=== PATIENT | female | born 1950 | race Caucasian/White ===

== ENCOUNTER → 2018-05-12 | Outpatient (CLI) | payer MEDICARE, BC, OTHER ==
[2018-05-12 11:25] LABS: HEMATOCRIT 43.7 % (36.0-47.0); HEMOGLOBIN 14.6 g/dl (12.0-15.5); MEAN CORPUSCULAR HEMOGLOBIN 30.3 pg (27.0-33.0); MEAN CORPUSCULAR HGB CONC 33.4 g/dl (32.0-36.5); MEAN CORPUSCULAR VOLUME 90.7 fl (80.0-96.0); PLATELET COUNT, AUTOMATED 206 10^3/uL (150-450); RED BLOOD COUNT 4.82 10^6/uL (4.00-5.40); RED CELL DISTRIBUTION WIDTH 11.2 % (11.5-14.5)
[2018-05-12 11:40] LABS: ALBUMIN 3.8 GM/DL (3.2-5.2); ALBUMIN/GLOBULIN RATIO 1.36 (1.00-1.93); ALKALINE PHOSPHATASE 98 U/L (45-117); ALT/SGPT 23 U/L (12-78); ANION GAP 6 MEQ/L (8-16); AST/SGOT 13 U/L (7-37); BILIRUBIN,TOTAL 0.5 MG/DL (0.2-1.0); BLOOD UREA NITROGEN 15 MG/DL (7-18); CALCIUM LEVEL 9.1 MG/DL (8.8-10.2); CARBON DIOXIDE LEVEL 30 MEQ/L (21-32); CHLORIDE LEVEL 109 MEQ/L (98-107); CHOLESTEROL LEVEL 218 MG/DL (<200); CHOLESTEROL RISK RATIO 3.633 (<5); CPK CREATINE PHOSPHOKINASE 35 U/L (26-192); CREATININE FOR GFR 0.82 MG/DL (0.55-1.30); GLOMERULAR FILTRATION RATE > 60.0 (>45); GLUCOSE, FASTING 90 MG/DL (70-100); HDL CHOLESTEROL 60 MG/DL (>40); LDL CHOLESTEROL 137 MG/DL (<100); NON-HDL-C 158 MG/DL; POTASSIUM SERUM 4.8 MEQ/L (3.5-5.1); SODIUM LEVEL 145 MEQ/L (136-145); THYROXINE (T4) 9.1 UG/DL (4.5-12.0); TOTAL PROTEIN 6.6 GM/DL (6.4-8.2); TRIGLYCERIDES LEVEL 105 MG/DL (<150); TROPONIN I < 0.02 NG/ML (< 0.10)
[2018-05-13 09:34] LABS: THYROID PEROXIDASE ANTIBODY 34.7 U/ML (<60.0)
== END ==
LOC: M WUC 08:31
DX: R00.2 Palpitations (principal)
CPT/HCPCS: 82550

== ENCOUNTER 2018-06-06 11:59 | Emergency (ER) | payer MEDICARE, BC, OTHER ==
[2018-06-06] MEDS: ACETAMINOPHEN TAB 650MG DOSE (2X325MG) PO (12:34)
[2018-06-06] MEDS: NS 1,000 ML IV ×2 (12:34→13:30)
[2018-06-06 12:35] LABS: BASO % 0.2 % (0.0-1.0); EOS % 0.1 % (0.0-3.0); HEMATOCRIT 45.6 % (36.0-47.0); HEMOGLOBIN 15.3 g/dl (12.0-15.5); IMMATURE GRANULOCYTE % 0.5 % (0-3.0); LYMPH # 1.5 10^3/uL (1.5-4.5); LYMPH % 11.5 % (24.0-44.0); MEAN CORPUSCULAR HEMOGLOBIN 29.8 pg (27.0-33.0); MEAN CORPUSCULAR HGB CONC 33.6 g/dl (32.0-36.5); MEAN CORPUSCULAR VOLUME 88.9 fl (80.0-96.0); MONO # 1.3 10^3/uL (0.0-0.8); MONO % 10.1 % (0.0-5.0); NEUTROPHILS # 10.1 10^3/uL (1.8-7.7); NEUTROPHILS % 77.6 % (36.0-66.0); PLATELET COUNT, AUTOMATED 261 10^3/uL (150-450); RED BLOOD COUNT 5.13 10^6/uL (4.00-5.40); RED CELL DISTRIBUTION WIDTH 11.5 % (11.5-14.5)
[2018-06-06 12:45] LABS: INR 0.98; PROTHROMBIN TIME 13.1 SECONDS (12.1-14.4)
[2018-06-06 12:46] LABS: PARTIAL THROMBOPLASTIN TIME 29.1 SECONDS (25.4-37.6)
[2018-06-06 13:06] LABS: ALBUMIN/GLOBULIN RATIO 1.03 (1.00-1.93); ALKALINE PHOSPHATASE 110 U/L (45-117); ALT/SGPT 22 U/L (12-78); AMYLASE 48 U/L (25-115); ANION GAP 8 MEQ/L (8-16); AST/SGOT 12 U/L (7-37); BILIRUBIN,DIRECT 0.1 MG/DL (0.0-0.2); BILIRUBIN,TOTAL 0.5 MG/DL (0.2-1.0); BLOOD UREA NITROGEN 16 MG/DL (7-18); CALCIUM LEVEL 9.6 MG/DL (8.8-10.2); CARBON DIOXIDE LEVEL 27 MEQ/L (21-32); CHLORIDE LEVEL 103 MEQ/L (98-107); CREATININE FOR GFR 0.91 MG/DL (0.55-1.30); GLOMERULAR FILTRATION RATE > 60.0 (>45); GLUCOSE, FASTING 106 MG/DL (70-100); LIPASE 93 U/L (73-393); POTASSIUM SERUM 3.9 MEQ/L (3.5-5.1); SODIUM LEVEL 138 MEQ/L (136-145); TOTAL PROTEIN 7.9 GM/DL (6.4-8.2)
[2018-06-06 13:13] LABS: LACTIC ACID SEPSIS PROTOCOL 2.6 MMOL/L (0.4-2.0)
[2018-06-06] MEDS ORDERED: ISOVUE-370 76% 100ML VIAL (Q9967) As Ordered (13:14)
[2018-06-06 13:38] LABS: KETONE, URINE AUTO RFX NEGATIVE (NEGATIVE); LEUKOCYTE ESTERASE UR AUTO RFX NEGATIVE (NEGATIVE); NITRITE, URINE AUTO RFX NEGATIVE (NEGATIVE); RBC, URINE AUTO RFX 1 /HPF (0-3); SPECIFIC GRAVITY UR AUTO RFX 1.011 (1.002-1.035); SQUAM EPITHELIAL CELL UR AURFX 0 /HPF (0-6); WBC, URINE AUTO RFX 1 /HPF (0-3)
[2018-06-06] MEDS: CIPROFLOXACIN 400 MG in APPROPRIATE DILUENT 1 EA IV (15:15)
[2018-06-06] MEDS: MORPHINE 4 MG/ML 1ML VIAL/SYRINGE (J2270) IV (15:30)
[2018-06-06] MEDS: metroNIDAZOLE (FLAGYL) 500 MG TAB PO (15:31)
[2018-06-06 16:05] LABS: LACTIC ACID SEPSIS PROTOCOL 1.4 MMOL/L (0.4-2.0)
== END 2018-06-06 16:38 | disposition home or self-care (01) ==
LOC: M ED 11:59
DX: K57.32 Diverticulitis of large intestine without perforation or abscess without bleeding (principal); R16.0 Hepatomegaly, not elsewhere classified; R00.2 Palpitations; Z88.0 Allergy status to penicillin
CPT/HCPCS: Q9967

== ENCOUNTER → 2018-06-08 | Outpatient (CLI) | payer MEDICARE, BC, OTHER ==
[2018-06-08 18:32] LABS: ALBUMIN 3.8 GM/DL (3.2-5.2); ALBUMIN/GLOBULIN RATIO 1.19 (1.00-1.93); ALKALINE PHOSPHATASE 97 U/L (45-117); ALT/SGPT 15 U/L (12-78); AST/SGOT 8 U/L (7-37); BILIRUBIN,DIRECT 0.2 MG/DL (0.0-0.2); BILIRUBIN,TOTAL 0.6 MG/DL (0.2-1.0)
[2018-06-09 09:39] LABS: ALPHA FETOPROTEIN TUMOR QUANT < 1.3 NG/ML (<8.1)
[2018-06-09 10:09] LABS: CA 125 4.8 U/ML (<30.2); CA19-9 TUMOR MARKER,CARBOHYDRA 9.9 U/ML (<35.0)
[2018-06-09 13:27] LABS: CARCINOEMBRYONIC ANTIGEN 0.7 NG/ML (<2.5)
== END ==
LOC: M LAB 16:46
DX: C22.9 Malignant neoplasm of liver, not specified as primary or secondary (principal)
CPT/HCPCS: 82378

== ENCOUNTER → 2018-06-12 | Outpatient (CLI) | payer MEDICARE, BC, OTHER ==
[~2018-06-12] MED LIST: CIPR-249 PO; FLAG500T PO; LIDOCAINE 1% MDV 20ML VIAL As Ordered ONE; NORCOTAB PO; TYLE325T5 PO
--- NOTE | 2018-06-16 15:08 | REP ---
ULTRASOUND-GUIDED LIVER BIOPSY The procedure was performed under the direct supervision of Dr. baer. Patient has a history of a large metastatic lesion in the left lobe of the liver seen on a previous CT scan dated 06/06/2018. The risks and benefits of the procedure were explained to the patient and informed consent was obtained. The liver lesion was localized using ultrasound guidance. The skin was prepped and draped in a sterile fashion. 1% lidocaine was used as a local anesthetic. Using ultrasound guidance a 19/20 gauge coaxial needle biopsy system was inserted and advanced into the lesion. Five core biopsy samples were obtained and sent to lab. The patient tolerated the procedure well and there were no immediate complications. After the appropriate amount of monitored convalescence the patient was discharged from the department. Reviewed by THALIA Valadez 06/12/2018 05:06 P Electronically Signed by Reji Baer MD 06/16/2018 03:00 P
== END ==
LOC: M RADPRO 11:50
PROVIDERS: ATTEND Surgery
DX: C22.9 Malignant neoplasm of liver, not specified as primary or secondary (principal); Z88.1 Allergy status to other antibiotic agents; Z79.3 Long term (current) use of hormonal contraceptives

== ENCOUNTER → 2018-06-16 | Outpatient (CLI) | payer MEDICARE, BC, OTHER ==
[~2018-06-16] MED LIST changes: +CIPR500T3 PO; +COLA100C5 PO; +HYDR-3713 PO; -LIDOCAINE 1% MDV 20ML VIAL As Ordered ONE; +METR-201 PO; +NORC1TAB4 PO
--- NOTE | 2018-06-16 19:30 | REP ---
PET/CT: History: Malignant neoplasm of the liver. Nonspecified primary versus secondary. The patient status post CT guided needle biopsy June 12. Comparisons: Comparison CT abdomen and pelvis June 06, 2018. TECHNIQUE: 1 hour 6 minutes following the intravenous injection of a 8.2 mCi dose of F-18 FDG, three-dimensional PET scintigraphy is acquired from the skull base to the proximal thighs. Triplanar noncontrast CT scanning is acquired through the same anatomic range for attenuation correction, and image registration with scan parameters optimized to minimize radiation exposure to the patient. PET scintigraphy and CT datasets were fused and displayed on a workstation with multiplanar and projection display capability. PET/CT Findings: There is hypermetabolic uptake in the left lobe liver mass. Maximum standard uptake value here is 7.6. Background uptake in the liver is in the range of four to five. No other suspicious hypermetabolic hepatic uptake is appreciated. No abnormal adrenal uptake is seen. No retroperitoneal erin uptake is appreciated. There is only minimal increased uptake around the pericolonic diverticulitis air cavity on the undersurface of the sigmoid colon. Maximum standard uptake value in its wall is 2.9. No other abnormal hypermetabolic uptake is seen in the abdomen or pelvis. The neck soft tissues are unremarkable. No abnormal hypermetabolic uptake is seen in the hilar or mediastinal region. There is a small amount of pericardial fluid. No pulmonary parenchymal hypermetabolic uptake is appreciated. Impression: The recently biopsied left lobe liver mass is hypermetabolic. No other hypermetabolic liver lesion is seen. There is minimally increased uptake in the diverticulitis associated pericolonic air collection at the sigmoid colon. No other abnormal hypermetabolic uptake is seen Electronically Signed by Jayjay Coulter MD 06/16/2018 07:58 P
== END ==
LOC: M PLARAD 14:45
PROVIDERS: ATTEND Surgery
DX: C22.9 Malignant neoplasm of liver, not specified as primary or secondary (principal)
CPT/HCPCS: 78815; A9552

== ENCOUNTER 2018-07-04 11:01 | Emergency (ER) | payer MEDICARE, BC, OTHER ==
[~2018-07-04] VITALS: Ht 160 cm; Wt 72.7 kg
[~2018-07-04 11:01] MED LIST changes: -CIPR500T3 PO; -COLA100C5 PO; -HYDR-3713 PO; -METR-201 PO; -NORC1TAB4 PO
[2018-07-04] MEDS ORDERED: COLA100C5 PO (11:07)
[2018-07-04 11:53] LABS: BASO % 0.1 % (0.0-1.0); EOS % 0.4 % (0.0-3.0); HEMATOCRIT 41.2 % (36.0-47.0); HEMOGLOBIN 13.9 g/dl (12.0-15.5); LYMPH % 13.7 % (24.0-44.0); MEAN CORPUSCULAR HEMOGLOBIN 29.9 pg (27.0-33.0); MEAN CORPUSCULAR HGB CONC 33.7 g/dl (32.0-36.5); MEAN CORPUSCULAR VOLUME 88.6 fl (80.0-96.0); MONO # 0.8 10^3/uL (0.0-0.8); MONO % 11.1 % (0.0-5.0); NEUTROPHILS # 5.2 10^3/uL (1.8-7.7); NEUTROPHILS % 74.3 % (36.0-66.0); PLATELET COUNT, AUTOMATED 140 10^3/uL (150-450); RED BLOOD COUNT 4.65 10^6/uL (4.00-5.40)
[2018-07-04 12:17] LABS: ALBUMIN 3.5 GM/DL (3.2-5.2); ALT/SGPT 31 U/L (12-78); BILIRUBIN,DIRECT 0.3 MG/DL (0.0-0.2); BILIRUBIN,TOTAL 0.9 MG/DL (0.2-1.0); BLOOD UREA NITROGEN 11 MG/DL (7-18); CALCIUM LEVEL 9.1 MG/DL (8.8-10.2); CARBON DIOXIDE LEVEL 25 MEQ/L (21-32); CHLORIDE LEVEL 107 MEQ/L (98-107); CREATININE FOR GFR 0.74 MG/DL (0.55-1.30); GLOMERULAR FILTRATION RATE > 60.0 (>45); GLUCOSE, FASTING 108 MG/DL (70-100); LIPASE 53 U/L (73-393); POTASSIUM SERUM 3.3 MEQ/L (3.5-5.1); SODIUM LEVEL 139 MEQ/L (136-145); TOTAL PROTEIN 7.2 GM/DL (6.4-8.2)
[2018-07-04] MEDS ORDERED: POTASSIUM CHLORIDE 10 MEQ SR TABLET PO ONE (13:45)
[2018-07-04] MEDS ORDERED: ISOVUE-370 76% 100ML VIAL (Q9967) As Ordered ONE (14:08)
[2018-07-04] MEDS: GASTROGRAFIN SOLUTION 30ML PO SCH ×2 (14:22→14:52)
[2018-07-04] MEDS ORDERED: HYDR-3713 PO (17:44)
[2018-07-04] MEDS ORDERED: CIPR-249 PO (17:44)
[2018-07-04] MEDS ORDERED: FLAG500T PO (17:44)
[2018-07-04] MEDS ORDERED: metroNIDAZOLE (FLAGYL) 500 MG TAB PO ONE (17:45)
[2018-07-04] MEDS ORDERED: CIPROFLOXACIN 500 MG TAB PO ONE (17:45)
[2018-07-04 18:12] VITALS: BP 144/64
--- NOTE | 2018-07-05 07:28 | REP ---
CT ABDOMEN/PELVIS WITH CONTRAST: HISTORY: Left lower quadrant pain. CONTRAST: Isovue-370, 100 mL. COMPARISON: 06/06/2018 An enhancing mass is present in the left lobe of the liver. This measures approximately 5.1 cm in transverse x 6 cm in AP dimensions and is not significantly changed in size compared to the previous study. There is moderate distension of the gallbladder. A small calcification and 8 mm cyst are present in the lower pole of the left kidney. The pancreas, spleen, adrenal glands, and right kidney are normal in appearance. There is no mass or adenopathy. A small hiatal hernia is present. A small right pleural effusion is present. A very small pericardial effusion is present. Diverticula are present in the descending and sigmoid colon. There is stranding in the fat surrounding a segment of sigmoid colon. This is not significantly changed compared to the previous study. The patient is status post hysterectomy. The urinary bladder is normal in appearance. Degenerative change is present in the spine. IMPRESSION: 1. There is a 6 cm mass in the left lobe of the liver not significantly changed in size compared to the previous study. 2. There is moderate distention of the gallbladder. 3. Left nephrolithiasis. 4. 8 mm left renal cyst. 5. Small right pleural effusion and small pericardial effusion. 6. Diverticulosis. 6. Findings consistent with diverticulitis involving the sigmoid colon, not significantly changed compared to the previous study. Electronically Signed by Joseph Triplett MD 07/05/2018 08:41 A
--- NOTE | 2018-07-07 09:06 | ED PDOC ---
Post-Departure Follow-Up dr suzie olvera and dr dang padilla faxed formal report of ct abd/p for fu Alysa Patton MD Jul 07, 2018 09:06
[2018-07-07] MEDS ORDERED: COLA100C5 PO (19:34)
[2018-07-07] MEDS ORDERED: METR-201 PO (19:34)
[2018-07-07] MEDS ORDERED: NORC1TAB4 PO (19:34)
[2018-07-07] MEDS ORDERED: CIPR500T3 PO (19:34)
[2018-07-10] MEDS ORDERED: CIPR-249 PO (12:59)
[2018-07-10] MEDS ORDERED: ZOFR4TAB16 PO (12:59)
[2018-07-10] MEDS ORDERED: FLAG500T PO (12:59)
== END 2018-07-04 18:16 | disposition home or self-care (01) ==
LOC: M ED 11:01
DX: K57.32 Diverticulitis of large intestine without perforation or abscess without bleeding (principal); R16.0 Hepatomegaly, not elsewhere classified; C22.8 Malignant neoplasm of liver, primary, unspecified as to type; E87.6 Hypokalemia; Z79.899 Other long term (current) drug therapy
CPT/HCPCS: 74177; 80048; 80076; 81001; 83690; 85025; 87086; 93041; 99284; Q9963; Q9967

== ENCOUNTER 2018-12-06 08:35 | Observation (INO) | payer MEDICARE, BC, OTHER ==
[~2018-12-06] VITALS: Ht 157.5 cm; Wt 76.4 kg
[~2018-12-06 08:35] MED LIST changes: +CIPR500T3 PO; +COLA100C5 PO; +HYDR-3713 PO; +HYDR-3715 PO; +METR-265 PO; +NORC1TAB7 PO; -NORCOTAB PO; +ZOFR4TAB16 PO
[2018-12-06 09:15] LABS: BASO % 0.3 % (0.0-1.0); HEMATOCRIT 35.5 % (36.0-47.0); HEMOGLOBIN 12.1 g/dl (12.0-15.5); LYMPH # 0.7 10^3/uL (1.5-4.5); LYMPH % 7.3 % (24.0-44.0); MEAN CORPUSCULAR HEMOGLOBIN 32.8 pg (27.0-33.0); MEAN CORPUSCULAR HGB CONC 34.1 g/dl (32.0-36.5); MEAN CORPUSCULAR VOLUME 96.2 fl (80.0-96.0); MONO # 1.4 10^3/uL (0.0-0.8); MONO % 13.9 % (0.0-5.0); NEUTROPHILS # 7.6 10^3/uL (1.8-7.7); NEUTROPHILS % 77.9 % (36.0-66.0); PLATELET COUNT, AUTOMATED 276 10^3/uL (150-450); RED BLOOD COUNT 3.69 10^6/uL (4.00-5.40); WHITE BLOOD COUNT 9.8 10^3/uL (4.0-10.0)
[2018-12-06] MEDS ORDERED: fentaNYL 100 MCG/2 ML INJECTION (J3010) IV PRN (09:15)
[2018-12-06] MEDS ORDERED: NS 1,000 ML IV ONE (09:15)
[2018-12-06] MEDS ORDERED: ONDANSETRON 4MG/2ML VIAL (J2405) IV ONE (09:15)
[2018-12-06 09:42] LABS: ALBUMIN 3.4 GM/DL (3.2-5.2); ALT/SGPT 16 U/L (12-78); BILIRUBIN,DIRECT 0.3 MG/DL (0.0-0.2); BILIRUBIN,TOTAL 0.6 MG/DL (0.2-1.0); BLOOD UREA NITROGEN 11 MG/DL (7-18); CALCIUM LEVEL 9.1 MG/DL (8.8-10.2); CARBON DIOXIDE LEVEL 25 MEQ/L (21-32); CHLORIDE LEVEL 103 MEQ/L (98-107); CREATININE FOR GFR 0.76 MG/DL (0.55-1.30); GLOMERULAR FILTRATION RATE > 60.0 (>45); GLUCOSE, FASTING 119 MG/DL (70-100); LIPASE 55 U/L (73-393); POTASSIUM SERUM 3.8 MEQ/L (3.5-5.1); SODIUM LEVEL 137 MEQ/L (136-145); TOTAL PROTEIN 7.1 GM/DL (6.4-8.2)
[2018-12-06] MEDS ORDERED: metroNIDAZOLE 500 MG in APPROPRIATE DILUENT 1 EA IV ONE (10:00)
[2018-12-06] MEDS ORDERED: CIPROFLOXACIN 400 MG in APPROPRIATE DILUENT 1 EA IV ONE (10:00)
[2018-12-06] MEDS: GASTROGRAFIN SOLUTION 30ML PO SCH ×2 (10:27→11:02)
[2018-12-06] MEDS ORDERED: ISOVUE-370 76% 100ML VIAL (Q9967) As Ordered ONE (11:59)
--- NOTE | 2018-12-06 13:53 | REP ---
CT ABDOMEN AND PELVIS WITH CONTRAST: HISTORY: Diverticulitis. CONTRAST: Isovue 370 100 mL. COMPARISON: 07/04/2018 and 07/07/2018 A mass with minimal heterogeneous enhancement is present in the left lobe of the liver. This measures 5.2 cm in transverse x 6 cm in AP dimensions. The mass appears unchanged in size compared to the previous study. An 8 mm cyst is present in the lower pole of the left kidney. Calcification is present in the left kidney consistent with nephrocalcinosis. The pancreas, spleen, adrenal glands, and right kidney are normal in appearance. There is no adenopathy. The visualized lungs are clear. The patient is status post hysterectomy. Diverticula are present in the descending and sigmoid colon. Stranding is present in the fat surrounding the distal descending and sigmoid colon. This represents diverticulitis. A small amount of free fluid is present. There is no definite perforation. The urinary bladder is normal in appearance. Degenerative change is present in the spine. IMPRESSION: 1. There is a 6 cm mass with minimal heterogeneous enhancement in the left lobe of the liver unchanged compared to the previous study. 2. Left nephrolithiasis. 3. 8 mm left renal cyst. 4. Diverticulosis. 5. Findings consistent with distal descending and sigmoid colon diverticulitis. There is no definite perforation. Electronically Signed by Joseph Triplett MD 12/06/2018 02:00 P
[2018-12-06] MEDS ORDERED: DICYCLOMINE 10 MG CAP PO PRN (14:45)
[2018-12-06] MEDS ORDERED: ONDA8TAB7 PO (14:49)
[2018-12-06] MEDS ORDERED: CIPR500T3 PO (14:49)
[2018-12-06] MEDS ORDERED: ACET1TAB55 PO (14:49)
[2018-12-06] MEDS ORDERED: METR-135 PO (14:49)
[2018-12-06] MEDS: NS 1,000 ML IV SCH (15:05)
[2018-12-06 15:30] VITALS: BP 125/74
--- NOTE | 2018-12-06 15:36 | HPEPDOC ---
General Date of Admission Dec 06, 2018 at 14:39 Date of Service: Dec 06, 2018 Chief Complaint The patient is a 68-year-old female who presented to the emergency room with complaints of abdominal pain. History of Present Illness Patient is a 68-year-old female with a PMHx of Hx of Diverticulitis and Adenocarcinoma of the liver (Dx: 05/2018; s/p chemotherapy at [facility]) who presented to the emergency room with abdominal pain. Patient has noted that shes had several episodes of diverticulitis. . She was recently being treated for diverticulitis as an outpatient and was started on Ciprofloxacin and Flagyl 2 days ago. Should continue to take the medications as scheduled, but reports that her pain continued to worsen and prompted that to come to the ER for further evaluation. Patient has reported that her abdominal pain occurs in the below her belly- button area. Reports the pain as a 5/10 currently , but at 10/10 yesterday evening . Patient describes the pain as a stabbing quality. There are no alleviating right ring factors. There is no radiation. At home, patient has reported low-grade temperature of 100.0F and chills. Patient reports some nausea without vomiting. Denies any diarrhea. Does report constipation. Denies any discomfort with urination but does report bladder pressure. Patient reports that her weight is been fairly consistent over the last several months, but does report a weight loss of 1-2 pounds over last 2 days. Also reports a poor appetite currently. Home Medications Scheduled Ciprofloxacin HCl (Ciprofloxacin HCl) 500 Mg Tablet, 500 MG PO BID, (Reported) FILLED 6/6 FOR 14 DAYS Metronidazole (Metronidazole) 250 Mg Tablet, 250 MG PO TID, (Reported) FILLED 6/6 FOR 14 DAYS Scheduled PRN Acetaminophen (Acetaminophen) 325 Mg Tablet, 650 MG PO Q4H PRN for PAIN, (Reported) Ondansetron HCl (Ondansetron HCl) 8 Mg Tablet, 8 MG PO Q8H PRN for NAUSEA OR VOMITING, (Reported) Allergies Coded Allergies: amoxicillin (Verified Allergy, Unknown, rash, 12/06/18) clavulanic acid (Verified Allergy, Unknown, rash, 12/06/18) morphine (Verified Adverse Reaction, Unknown, hallucinations, 12/06/18) Past Medical History Medical History Diverticulitis Adenocarcinoma of the liver (Dx: 05/2018; s/p chemotherapy at [facility]) Surgical History Hysterectomy Appendectomy Tonsillectomy Left breast cyst resection Right upper quadrant exploration for surgical resection that was aborted Family History - Family history was reviewed and noncontributory Social History - Denies the use of tobacco or illicit drugs; social alcohol use - Denies recent travel or sick contacts - Lives with outside of [employer] - Occupation; retired from [employer] Review of Systems Other systems 10 point review of systems complete, all negative otherwise stated in HPI Vital Signs - Vitals: BP 116/64, HR 92, RR 16, Sat 94%RA, Temp 101.0F - General: Lying in bed, No acute distress, Speaking in full sentences, AAOx3 - HEENT: NC, AT, PERRLA, EOMI - CVS: RRR, +S1S2, - Murmurs / rubs / gallops - Lungs: Fair air entry bilaterally, no appreciable wheezing, rales or rhonchi - Abdomen: Soft, Non-distended, tenderness appreciated at suprapubic and left l ower quadrant - Extremities: No lower extremity edema, No calf tenderness - Neuro: No focal motor or sensory deficit - Skin: No visible rashes Laboratory Data Labs 24H Laboratory Tests 2 12/06/18 09:04: Immature Granulocyte % (Auto) 0.6, White Blood Count 9.8, Red Blood Count 3.69L, Hemoglobin 12.1, Hematocrit 35.5L, Mean Corpuscular Volume 96.2H, Mean Corpuscular Hemoglobin 32.8, Mean Corpuscular Hemoglobin Concent 34.1, Red Cell Distribution Width 13.4, Platelet Count 276, Neutrophils (%) (Auto) 77.9H, Lymphocytes (%) (Auto) 7.3L, Monocytes (%) (Auto) 13.9H, Eosinophils (%) (Auto) 0.0, Basophils (%) (Auto) 0.3, Neutrophils # (Auto) 7.6, Lymphocytes # (Auto) 0.7L, Monocytes # (Auto) 1.4H, Eosinophils # (Auto) 0.0, Basophils # (Auto) 0.0, Nucleated Red Blood Cells % (auto) 0.0, Urine Color BOB, Urine Appearance HAZY, Urine pH 5.0, Urine Specific [place] 1.023, Urine Protein 1+H, Urine Glucose (UA) NEGATIVE, Urine Ketones 1+H, Urine Blood NEGATIVE, Urine Nitrite NEGATIVE, Urine Bilirubin NEGATIVE, Urine Urobilinogen 2.0H, Urine Leukocyte Esterase 1+H, Urine WBC (Auto) 1, Urine RBC (Auto) 3, Urine Hyaline Casts (Auto) 0, Urine Bacteria (Auto) NEGATIVE, Urine Squamous Epithelial Cells 0, Urine Mucus (Auto) SMALL, Urine Sperm (Auto) , Anion Gap 9, Glomerular Filtration Rate > 60.0, Calcium Level 9.1, Aspartate Amino Transf (AST/SGOT) < 3L, Alanine Aminotransferase (ALT/SGPT) 16, Alkaline Phosphatase 87, Total Bilirubin 0.6, D irect Bilirubin 0.3H, Total Protein 7.1, Albumin 3.4, Albumin/Globulin Ratio 0.92L, Lipase 55L 12/06/18 14:35: Lactic Acid Level 0.9 CBC/BMP Laboratory Tests 12/06/18 09:04 Red Blood Count 3.69 L, Mean Corpuscular Volume 96.2 H, Mean Corpuscular Hemoglobin 32.8, Mean Corpuscular Hemoglobin Concent 34.1, Red Cell Distribution Width 13.4, Neutrophils (%) (Auto) 77.9 H, Lymphocytes (%) (Auto) 7.3 L, Monocytes (%) (Auto) 13.9 H, Eosinophils (%) (Auto) 0.0, Basophils (%) (Auto) 0.3, Neutrophils # (Auto) 7.6, Lymphocytes # (Auto) 0.7 L, Monocytes # (Auto) 1.4 H, Eosinophils # (Auto) 0.0, Basophils # (Auto) 0.0 Microbiology Microbiology 12/06/18 Blood Culture, Received Pending 12/06/18 Blood Culture, Received Pending 12/06/18 Urine Culture, Received Pending Plan / VTE VTE Prophylaxis Ordered?: Yes Plan Plan Abdominal pain - likely 2/2 acute diverticulitis, possibly developing abscess - Patient presented to the ER after failing to improve with oral antibiotics at home - Found to be febrile in the ER - Remains hemodynamically stable - Physical with exquisite tenderness at left lower quadrant - No significant leukocytosis or lactic acidosis - Urinalysis without any evidence of definitive infection - CT abdomen / pelvis 12/06: 1. There is a 6 cm mass with minimal heterogeneous enhancement in the left lobe of the liver unchanged compared to the previous study. 2. Left nephrolithiasis. 3. 8 mm left renal cyst. 4. Diverticulosis. 5. Findings consistent with distal descending and sigmoid colon diverticulitis. There is no definite perforation. - Blood culture and urine cultures pending - Will start Ceftriaxone, Metronidazole and IV fluids - Will keep NPO - Case was discussed with general surgery by the ER provider; will c/w IV antibiotics for now Adenocarcinoma of the liver - Dx: 05/2018 - Patient had started surgery on 07/2018 but was aborted given the location of tumor - s/p chemotherapy at [facility] - Patient follows at [facility] - CT scheduled to start radiation therapy tomorrow; however, this will likely have to be postponed DVT prophylaxis - Will start ONUR Avery MD Dec 06, 2018 15:36
[2018-12-06] MEDS: cefTRIAXone SOD 2 GM in D5W MINI-BAG PLUS 50 ML IV SCH (17:20)
[2018-12-06] MEDS: metroNIDAZOLE 500 MG in APPROPRIATE DILUENT 1 EA IV SCH (18:16)
[2018-12-06] MEDS: ACETAMINOPHEN TAB 650MG DOSE (2X325MG) PO PRN (20:41)
[2018-12-06 22:00] VITALS: BP 117/71
[2018-12-07] MEDS: metroNIDAZOLE 500 MG in APPROPRIATE DILUENT 1 EA IV SCH ×3 (01:41→17:30)
[2018-12-07] MEDS: NS 1,000 ML IV SCH (03:45)
[2018-12-07 06:00] VITALS: BP 106/60
[2018-12-07 06:10] LABS: BASO % 0.2 % (0.0-1.0); HEMATOCRIT 32.5 % (36.0-47.0); HEMOGLOBIN 10.7 g/dl (12.0-15.5); LYMPH # 0.8 10^3/uL (1.5-4.5); LYMPH % 12.4 % (24.0-44.0); MEAN CORPUSCULAR HEMOGLOBIN 32.9 pg (27.0-33.0); MEAN CORPUSCULAR HGB CONC 32.9 g/dl (32.0-36.5); MONO % 16.6 % (0.0-5.0); NEUTROPHILS # 4.3 10^3/uL (1.8-7.7); PLATELET COUNT, AUTOMATED 209 10^3/uL (150-450); RED BLOOD COUNT 3.25 10^6/uL (4.00-5.40); WHITE BLOOD COUNT 6.1 10^3/uL (4.0-10.0)
[2018-12-07 06:32] LABS: BLOOD UREA NITROGEN 8 MG/DL (7-18); CALCIUM LEVEL 8.7 MG/DL (8.8-10.2); CARBON DIOXIDE LEVEL 28 MEQ/L (21-32); CHLORIDE LEVEL 109 MEQ/L (98-107); CREATININE FOR GFR 0.67 MG/DL (0.55-1.30); GLOMERULAR FILTRATION RATE > 60.0 (>45); GLUCOSE, FASTING 94 MG/DL (70-100); MAGNESIUM LEVEL 2.2 MG/DL (1.8-2.4); POTASSIUM SERUM 3.6 MEQ/L (3.5-5.1); SODIUM LEVEL 143 MEQ/L (136-145)
[2018-12-07 08:16] LABS: FERRITIN 367 NG/ML (8-252); IRON (FE) 12 UG/DL (50-170); TOTAL IRON BINDING CAPACITY 171 UG/DL (250-450)
[2018-12-07] MEDS: ENOXAPARIN 40 MG/0.4 ML SYRINGE (J1650) SC SCH (08:30)
[2018-12-07] MEDS ORDERED: PERCOCET 5MG/325MG TAB PO PRN (10:00)
--- NOTE | 2018-12-07 11:06 | IPNPDOC ---
Date Seen The patient was seen on 12/07/18. Progress Note SUBJECTIVE: Patient is a 68-year-old female seen on morning rounds this morning. She is laying in bed with LLQ abdominal and suprapubic discomfort. She states that the pain is crampy and it feels like she needs to pass gas but she cannot. She states that the pain overnight was rated at a 5/10 which is much improved from her initial presentation to the ER. She had a loose bowel movement this mo rning that relieved some of the pain and discomfort. She reports that she has had decreased appetite and that she is afraid of eating due to the pain. Patient denies blood in the stool or urine but states that she has some suprapubic pressure associated with the end of urination, she denies dysuria or urgency. Patient reports sweating that started overnight and continued into the morning. Patient has a PMHx of diverticulitis and adenocarcinoma of the liver (Dx: 05/2018; s/p chemotherapy at [facility]). She states that she was recently being treated for diverticulitis as an outpatient and was started on Ciprofloxacin and Flagyl 3 days ago. Patient otherwise denies chest pain, sob, nausea, vomiting, and chills. ROS: 12 point ROS reviewed and negative except for above pertinent positive f indings OBJECTIVE PHYSICAL EXAMINATION: VITAL SIGNS: Please see below. GENERAL: Patient is laying in bed and reporting LLQ and suprapubic discomfort and cramping. Patient also reports sweating that started last night and continued this morning. Otherwise patient denies chest pain, shortness of grecia ath, nausea, vomiting, fever, chills. She is awake, alert, oriented speaking in complete sentences in no acute distress. HEENT: Moist mucous membranes, EOMI, No JVD appreciated CARDIOVASCULAR: S1 S2 regular no additional heart sounds appreciated RESPIRATORY: Clear to auscultation bilaterally, no wheezing, rales or rhonchi appreciated ABDOMINAL: Bowel sounds present x4 abdomen. Tenderness on auscultation and light palpation of the LLQ and suprapubic region. No tenderness reported in RUQ, RLQ, or LUQ. No rebound, rigidity, or guarding., no hepatosplenomegaly or masses appreciated. EXTREMITIES: No clubbing cyanosis or edema NEUROLOGICAL: Spontaneously moves all 4 extremities, no focal deficits. PSYCHOLOGICAL: Appropriate affect LABORATORY DATA, IMAGING STUDIES, MICROBIOLOGY: Please see below. DVT prophylaxis ordered?: Lovenox ASSESSMENT AND PLAN: This is a 68-year-old female that presented with LLQ abdominal pain and suprapubic discomfort with a past medical history of diverticulosis and adenocarcinoma of the liver. PROBLEMS: 1. Abdominal pain - likely 2/2 acute diverticulitis, possibly developing abscess - Patient presented to the ER after failing to improve with oral antibiotics at home - Found to be febrile in the ER - Remains hemodynamically stable - Physical with exquisite tenderness at left lower quadrant - No significant leukocytosis or lactic acidosis - Urinalysis without any evidence of definitive infection - CT abdomen / pelvis 12/06: 1. There is a 6 cm mass with minimal heterogeneous enhancement in the left lobe of the liver unchanged compared to the previous study. 2. Left nephrolithiasis. 3. 8 mm left renal cyst. 4. Diverticulosis. 5. Findings consistent with distal descending and sigmoid colon diverticulitis. There is no definite perforation. - Blood cultures x2 neg after 24 hours, urine cx negative - C/w Ceftriaxone, Metronidazole; Will DC IV fluids - Will start clear liquid diet today - Percocet / Bentyl available PRN 2. Adenocarcinoma of the liver - Dx: 05/2018 - Patient had started surgery on 07/2018 but was aborted given the location of tumor - s/p chemotherapy at [facility] - Patient follows at [facility] [place] - Was scheduled to start radiation therapy today; however, this will have to be postponed 3. Cystitis -CT did demonstrate Left 8 mm renal cyst, pt complains of some dyrusia, c/w monitoring for now she is on IV abx., no evidence of any hydro. per CT scan 4. DVT prophylaxis - c/w Lovenox DISPOSITION: Patient continues to have severe LLQ pain on palpation likely 2/2 to acute diverticulitis as well as suprapubic tenderness/discomfort. C/w Ceftriaxone, Metronidazole, and IV fluids. Percocet was ordered for pain management PRN. Patient was scheduled to start radiation therapy today for adenocarcinoma of the liver, however this will have to be postponed. We will see how she tolerates clear liquid diet. VS, I&O, 24H, Fishbone Vital Signs/I&O Vital Signs Date Time Temp Pulse Resp B/P (MAP) Pulse Ox O2 Delivery O2 Flow Rate FiO2 12/07/18 06:00 98.6 78 16 106/60 (75) 96 12/06/18 15:15 Room Air I&O- Last 24 Hours up to 6 AM 12/07/18 06:00 Intake Total 3100 ml Output Total 600 ml Balance 2500 ml Laboratory Data 24H LABS Laboratory Tests 2 12/06/18 14:35: Lactic Acid Level 0.9 12/07/18 05:05: Immature Granulocyte % (Auto) 0.8, White Blood Count 6.1, Red Blood Count 3.25L, Hemoglobin 10.7L, Hematocrit 32.5L, Mean Corpuscular Volume 100.0H, Mean Corpuscular Hemoglobin 32.9, Mean Corpuscular Hemoglobin Concent 32.9, Red Cell Distribution Width 13.5, Platelet Count 209, Neutrophils (%) (Auto) 70.0H, Lymphocytes (%) (Auto) 12.4L, Monocytes (%) (Auto) 16.6H, Eosinophils (%) (Auto) 0.0, Basophils (%) (Auto) 0.2, Neutrophils # (Auto) 4.3, Lymphocytes # (Auto) 0.8L, Monocytes # (Auto) 1.0H, Eosinophils # (Auto) 0.0, Basophils # (Auto) 0.0, Nucleated Red Blood Cells % (auto) 0.0, Anion Gap 6L, Glomerular Filtration Rate > 60.0, Blood Urea Nitrogen 8, Creatinine 0.67, Sodium Level 143, Potassium Level 3.6, Chloride Level 109H, Carbon Dioxide Level 28, Calcium Level 8.7L, Magnesium Level 2.2, Iron Level 12L, Total Iron Binding Capacity 171L, Transferrin % Saturation 7.0L, Ferritin 367H CBC/BMP Laboratory Tests 12/07/18 05:05 Red Blood Count 3.25 L, Mean Corpuscular Volume 100.0 H, Mean Corpuscular Hemoglobin 32.9, Mean Corpuscular Hemoglobin Concent 32.9, Red Cell Distribution Width 13.5, Neutrophils (%) (Auto) 70.0 H, Lymphocytes (%) (Auto) 12.4 L, Monocytes (%) (Auto) 16.6 H, Eosinophils (%) (Auto) 0.0, Basophils (%) (Auto) 0.2, Neutrophils # (Auto) 4.3, Lymphocytes # (Auto) 0.8 L, Monocytes # (Auto) 1.0 H, Eosinophils # (Auto) 0.0, Basophils # (Auto) 0.0, Calcium Level 8.7 L Microbiology Microbiology 12/06/18 Blood Culture - Preliminary, Resulted No growth after 24 hours . All specim... 12/06/18 Blood Culture - Preliminary, Resulted No growth after 24 hours . All specim... 12/06/18 Urine Culture - Final, Complete GME ATTESTATION GME ATTESTATION My faculty preceptor for this patient encounter was physically present during the encounter and was fully available. All aspects of the patient interview, examination, medical decision making process, and medical care plan development were reviewed and approved by the faculty preceptor. The faculty preceptor is aware and concurs with the plan as stated in the body of this note and will attest to such by his/her cosignature. ATTENDING NOTE I, Trang Watson, have both independently examined this patient, including my own physical exam, as well as reviewed the documentation and edited where necessary. I have discussed in detail with the resident the findings and plan of treatment as documented by the resident and edited their note. I agree with their findings and treatment plan and have edited their documentation. I will continue to follow the patient during this hospital stay. JAYSON MENDOZA OMS-3 Dec 07, 2018 11:06 ROGER KELLOGG DO Dec 07, 2018 13:07 TRANG WATSON MD Dec 07, 2018 14:05
[2018-12-07 11:09] LABS: VITAMIN B12 LEVEL 387 PG/ML (247-911)
[2018-12-07 11:10] LABS: FOLATE 18.9 NG/ML (>5.4)
[2018-12-07 14:00] VITALS: BP 116/61
[2018-12-07] MEDS: ACETAMINOPHEN TAB 650MG DOSE (2X325MG) PO PRN (14:24)
[2018-12-07] MEDS: cefTRIAXone SOD 2 GM in D5W MINI-BAG PLUS 50 ML IV SCH (15:08)
[2018-12-07 22:00] VITALS: BP 113/67
[2018-12-08] MEDS ORDERED: ONDANSETRON 4MG/2ML VIAL (J2405) IV PRN (01:00)
[2018-12-08] MEDS: metroNIDAZOLE 500 MG in APPROPRIATE DILUENT 1 EA IV SCH ×3 (01:12→17:43)
[2018-12-08 06:00] VITALS: BP 103/56
[2018-12-08 06:12] LABS: BASO % 0.2 % (0.0-1.0); HEMATOCRIT 30.9 % (36.0-47.0); HEMOGLOBIN 10.3 g/dl (12.0-15.5); LYMPH % 14.8 % (24.0-44.0); MEAN CORPUSCULAR HEMOGLOBIN 32.6 pg (27.0-33.0); MEAN CORPUSCULAR HGB CONC 33.3 g/dl (32.0-36.5); MEAN CORPUSCULAR VOLUME 97.8 fl (80.0-96.0); MONO # 0.8 10^3/uL (0.0-0.8); MONO % 11.5 % (0.0-5.0); NEUTROPHILS # 4.8 10^3/uL (1.8-7.7); NEUTROPHILS % 72.7 % (36.0-66.0); PLATELET COUNT, AUTOMATED 226 10^3/uL (150-450); RED BLOOD COUNT 3.16 10^6/uL (4.00-5.40); WHITE BLOOD COUNT 6.5 10^3/uL (4.0-10.0)
[2018-12-08 06:32] LABS: BLOOD UREA NITROGEN 7 MG/DL (7-18); CALCIUM LEVEL 8.8 MG/DL (8.8-10.2); CARBON DIOXIDE LEVEL 29 MEQ/L (21-32); CHLORIDE LEVEL 107 MEQ/L (98-107); CREATININE FOR GFR 0.64 MG/DL (0.55-1.30); GLOMERULAR FILTRATION RATE > 60.0 (>45); GLUCOSE, FASTING 99 MG/DL (70-100); MAGNESIUM LEVEL 2.2 MG/DL (1.8-2.4); POTASSIUM SERUM 3.8 MEQ/L (3.5-5.1); SODIUM LEVEL 142 MEQ/L (136-145)
[2018-12-08] MEDS: ENOXAPARIN 40 MG/0.4 ML SYRINGE (J1650) SC SCH (09:25)
--- NOTE | 2018-12-08 11:20 | IPNPDOC ---
Date Seen The patient was seen on 12/08/18. Progress Note SUBJECTIVE: Patient is seen laying in bed with LLQ abdominal and suprapubic discomfort. She states that she had difficulty sleeping and nausea overnight that was relieved with Ondansetron. She had a loose bowel movement this morning that relieved some of the pain and discomfort but denies blood in her stool. She reports that she is still afraid of eating due to the pain and that she has a bitter taste in her mouth that is making it difficult to eat or drink. Patient denies blood in the urine but states that she still has suprapubic pressure associated with the end of urination, she denies dysuria or urgency. Patient has a PMHx of diverticulitis and adenocarcinoma of the liver (Dx: 05/2018; s/p chemotherapy at [facility]). Encouraging BRAT diet however patient is stating difficulty eating large amounts. Patient requested pain medication and agreed to Ibuprofen. Patient otherwise denies chest pain, sob, nausea, vomiting, and chills. OBJECTIVE PHYSICAL EXAMINATION: VITAL SIGNS: Please see below. GENERAL: Patient is seen laying in bed and reporting LLQ and suprapubic discomfort and cramping. Otherwise patient denies chest pain, shortness of breath, nausea, vomiting, fever, chills. She is awake, alert, oriented speaking in complete sentences in no acute distress. HEENT: Moist mucous membranes, EOMI, No JVD appreciated CARDIOVASCULAR: S1 S2 regular no additional heart sounds appreciated RESPIRATORY: Clear to auscultation bilaterally, no wheezing, rales or rhonchi appreciated ABDOMINAL: Bowel sounds present x4 abdomen. Tenderness on auscultation and light palpation of the LLQ and suprapubic region. No tenderness reported in RUQ, RLQ, or LUQ. No rebound, rigidity, or guarding., no hepatosplenomegaly or masses appreciated. EXTREMITIES: No clubbing cyanosis or edema NEUROLOGICAL: Spontaneously moves all 4 extremities, no focal deficits. PSYCHOLOGICAL: Appropriate affect LABORATORY DATA, IMAGING STUDIES, MICROBIOLOGY: Please see below. DVT prophylaxis ordered?: Lovenox ASSESSMENT AND PLAN: This is a 68-year-old female that presented with LLQ abdominal pain and suprapubic discomfort with a past medical history of diverticulosis and adenocarcinoma of the liver. PROBLEMS: 1. Abdominal pain - likely 2/2 acute diverticulitis, possibly developing abscess - Patient presented to the ER after failing to improve with oral antibiotics at home - Currently remains hemodynamically stable and afebrile for >24 hours - Physical with continued tenderness at left lower quadrant - No significant leukocytosis or lactic acidosis - Urinalysis without any evidence of definitive infection - CT abdomen / pelvis 12/06: 1. There is a 6 cm mass with minimal heterogeneous enhancement in the left lobe of the liver unchanged compared to the previous study. 2. Left nephrolithiasis. 3. 8 mm left renal cyst. 4. Diverticulosis. 5. Findings consistent with distal descending and sigmoid colon diverticulitis. There is no definite perforation. - Blood cultures x2 neg after 48 hours, urine cx negative - C/w Ceftriaxone, Metronidazole; s/p IV fluids - Continue with BRAT diet as tolerated today - Percocet / Bentyl available PRN as well as ibuprofen 2. Adenocarcinoma of the liver - Dx: 05/2018 - Patient had started surgery on 07/2018 but was aborted given the location of tumor - s/p chemotherapy at [facility] - Patient follows at [facility] - Was scheduled to start radiation therapy yesterday; however, this will have to be postponed 3. Cystitis -CT did demonstrate Left 8 mm renal cyst, left nephrolithiasis, pt complains of some pelvic pressure, c/w monitoring for now she is on IV abx., no evidence of any hydro. per CT scan 4. DVT prophylaxis - c/w Lovenox DISPOSITION: - Patient continues to have severe LLQ pain on palpation likely 2/2 to acute diverticulitis as well as suprapubic tenderness/discomfort. - C/w Ceftriaxone, Metronidazole, she is s/p IV fluids and we are encouraging PO intake today. - Patient was scheduled to start radiation therapy yesterday for adenocarcinoma of the liver, however this will have to be postponed. - We will see how she tolerates BRAT diet for the remainder of today. - Discussed with Surgery; will consider additional imaging if pain does not resolve; consider outpatient follow up for elective partial colectomy VS, I&O, 24H, Fishbone Vital Signs/I&O Vital Signs Date Time Temp Pulse Resp B/P (MAP) Pulse Ox O2 Delivery O2 Flow Rate FiO2 12/08/18 06:00 98.1 80 18 103/56 (72) 93 12/06/18 15:15 Room Air I&O- Last 24 Hours up to 6 AM 12/08/18 05:59 Intake Total 2680 ml Output Total 1350 ml Balance 1330 ml Laboratory Data 24H LABS Laboratory Tests 2 12/08/18 05:38: Immature Granulocyte % (Auto) 0.8, White Blood Count 6.5, Red Blood Count 3.16L, Hemoglobin 10.3L, Hematocrit 30.9L, Mean Corpuscular Volume 97.8H, Mean Corpuscular Hemoglobin 32.6, Mean Corpuscular Hemoglobin Concent 33.3, Red Cell Distribution Width 13.3, Platelet Count 226, Neutrophils (%) (Auto) 72.7H, Lymphocytes (%) (Auto) 14.8L, Monocytes (%) (Auto) 11.5H, Eosinophils (%) (Auto) 0.0, Basophils (%) (Auto) 0.2, Neutrophils # (Auto) 4.8, Lymphocytes # (Auto) 1.0L, Monocytes # (Auto) 0.8, Eosinophils # (Auto) 0.0, Basophils # (Auto) 0.0, Nucleated Red Blood Cells % (auto) 0.0, Anion Gap 6L, Glomerular Filtration Rate > 60.0, Blood Urea Nitrogen 7, Creatinine 0.64, Sodium Level 142, Potassium Level 3.8, Chloride Level 107, Carbon Dioxide Level 29, Calcium Level 8.8, Ma gnesium Level 2.2 CBC/BMP Laboratory Tests 12/08/18 05:38 Red Blood Count 3.16 L, Mean Corpuscular Volume 97.8 H, Mean Corpuscular Hemoglobin 32.6, Mean Corpuscular Hemoglobin Concent 33.3, Red Cell Distribution Width 13.3, Neutrophils (%) (Auto) 72.7 H, Lymphocytes (%) (Auto) 14.8 L, Monocytes (%) (Auto) 11.5 H, Eosinophils (%) (Auto) 0.0, Basophils (%) (Auto) 0.2, Neutrophils # (Auto) 4.8, Lymphocytes # (Auto) 1.0 L, Monocytes # (Auto) 0.8, Eosinophils # (Auto) 0.0, Basophils # (Auto) 0.0, Calcium Level 8.8 Microbiology Microbiology 12/06/18 Blood Culture - Preliminary, Resulted No Growth after 48 hours. All Specime... 12/06/18 Blood Culture - Preliminary, Resulted No Growth after 48 hours. All Specime... 12/06/18 Urine Culture - Final, Complete GME ATTESTATION GME ATTESTATION My faculty preceptor for this patient encounter was physically present during the encounter and was fully available. All aspects of the patient interview, examination, medical decision making process, and medical care plan development were reviewed and approved by the faculty preceptor. The faculty preceptor is aware and concurs with the plan as stated in the body of this note and will attest to such by his/her cosignature. ATTENDING NOTE I, Trang Watson, have both independently examined this patient, including my own physical exam, as well as reviewed the documentation and edited where necessary. I have discussed in detail with the resident the findings and plan of treatment as documented by the resident and edited their note. I agree with their findings and treatment plan and have edited their documentation. I will continue to follow the patient during this hospital stay. JAYSON MENDOZA OMS-3 Dec 08, 2018 11:20 ROGER KELLOGG DO Dec 08, 2018 11:30 TRANG WATSON MD Dec 08, 2018 15:28
[2018-12-08] MEDS: ACETAMINOPHEN TAB 650MG DOSE (2X325MG) PO PRN ×2 (11:29→20:32)
[2018-12-08 14:00] VITALS: BP 106/60
[2018-12-08] MEDS: cefTRIAXone SOD 2 GM in D5W MINI-BAG PLUS 50 ML IV SCH (15:16)
[2018-12-08 22:00] VITALS: BP 132/72
[2018-12-09] MEDS: metroNIDAZOLE 500 MG in APPROPRIATE DILUENT 1 EA IV SCH ×2 (02:11→09:40)
[2018-12-09 06:00] VITALS: BP 121/75
[2018-12-09 06:02] LABS: BASO % 0.1 % (0.0-1.0); EOS % 0.3 % (0.0-3.0); HEMATOCRIT 32.3 % (36.0-47.0); HEMOGLOBIN 10.9 g/dl (12.0-15.5); LYMPH # 0.8 10^3/uL (1.5-4.5); LYMPH % 11.2 % (24.0-44.0); MEAN CORPUSCULAR HEMOGLOBIN 32.5 pg (27.0-33.0); MEAN CORPUSCULAR HGB CONC 33.7 g/dl (32.0-36.5); MEAN CORPUSCULAR VOLUME 96.4 fl (80.0-96.0); MONO # 0.8 10^3/uL (0.0-0.8); MONO % 11.7 % (0.0-5.0); NEUTROPHILS # 5.1 10^3/uL (1.8-7.7); NEUTROPHILS % 76.1 % (36.0-66.0); PLATELET COUNT, AUTOMATED 241 10^3/uL (150-450); RED BLOOD COUNT 3.35 10^6/uL (4.00-5.40); WHITE BLOOD COUNT 6.8 10^3/uL (4.0-10.0)
[2018-12-09 06:23] LABS: BLOOD UREA NITROGEN 6 MG/DL (7-18); CALCIUM LEVEL 8.4 MG/DL (8.8-10.2); CARBON DIOXIDE LEVEL 26 MEQ/L (21-32); CHLORIDE LEVEL 107 MEQ/L (98-107); CREATININE FOR GFR 0.61 MG/DL (0.55-1.30); GLOMERULAR FILTRATION RATE > 60.0 (>45); GLUCOSE, FASTING 106 MG/DL (70-100); POTASSIUM SERUM 3.1 MEQ/L (3.5-5.1); SODIUM LEVEL 141 MEQ/L (136-145)
[2018-12-09] MEDS ORDERED: POTASSIUM CHLORIDE 10 MEQ SR TABLET PO ONE (08:00)
[2018-12-09] MEDS: ENOXAPARIN 40 MG/0.4 ML SYRINGE (J1650) SC SCH (09:40)
--- NOTE | 2018-12-09 09:41 | IPNPDOC ---
Date Seen The patient was seen on 12/09/18. Progress Note SUBJECTIVE: Patient is seen laying in bed with LLQ abdominal and suprapubic discomfort. She states that the LLQ pain is improved from yesterday and that there is only a continuous throbbing pain, instead of sharp pain that was reported yesterday. She had a loose bowel movement this morning that relieved some of the pain and discomfort. She denies blood in her stool. She reports that the bitter taste in her mouth has decreased but that food is still not appealing to her. She reports being able to eat yesterday evening however does not have an appetite this morning. Patient denies blood in the urine but states that she still has suprapubic pressure associated with the end of urination, she denies dysuria or urgency. Patient has a PMHx of diverticulitis and adenocarcinoma of the liver (Dx: 05/2018; s/p chemotherapy at [facility]). Encouraging BRAT diet however patient is stating difficulty eating large amounts. Patient otherwise denies chest pain, sob, nausea, vomiting, and chills. OBJECTIVE PHYSICAL EXAMINATION: VITAL SIGNS: Please see below. GENERAL: Patient is seen laying in bed and reporting LLQ and suprapubic discomfort and cramping. Otherwise patient denies chest pain, shortness of breath, nausea, vomiting, fever, chills. She is awake, alert, oriented speaking in complete sentences in no acute distress. HEENT: Moist mucous membranes, EOMI, No JVD appreciated CARDIOVASCULAR: S1 S2 regular no additional heart sounds appreciated RESPIRATORY: Clear to auscultation bilaterally, no wheezing, rales or rhonchi appreciated ABDOMINAL: Bowel sounds present x4 abdomen. Tenderness to deep palpation in the LLQ which she reports as an achy throbbing pain. Discomfort and pressure to light and deep palpation in located midline over her pubic symphysis. No tenderness reported in RUQ, RLQ, or LUQ. No rebound, rigidity, or guarding., no hepatosplenomegaly or masses appreciated. EXTREMITIES: No clubbing cyanosis or edema NEUROLOGICAL: Spontaneously moves all 4 extremities, no focal deficits. PSYCHOLOGICAL: Appropriate affect LABORATORY DATA, IMAGING STUDIES, MICROBIOLOGY: Please see below. DVT prophylaxis ordered?: Lovenox ASSESSMENT AND PLAN: This is a 68-year-old female that presented with LLQ abdominal throbbing discomfort and suprapubic pressure with a past medical history of diverticulosis and adenocarcinoma of the liver. PROBLEMS: 1. Abdominal pain - likely 2/2 acute diverticulitis, possibly developing abscess - Patient presented to the ER after failing to improve with oral antibiotics at home - Currently remains hemodynamically stable and afebrile for >24 hours - Physical with continued tenderness at left lower quadrant - No significant leukocytosis or lactic acidosis - Urinalysis without any evidence of definitive infection - CT abdomen / pelvis 12/06: 1. There is a 6 cm mass with minimal heterogeneous enhancement in the left lobe of the liver unchanged compared to the previous study. 2. Left nephrolithiasis. 3. 8 mm left renal cyst. 4. Diverticulosis. 5. Findings consistent with distal descending and sigmoid colon diverticulitis. There is no definite perforation. - Blood cultures x2 neg after 48 hours, urine cx negative - C/w Ceftriaxone, Metronidazole; s/p IV fluids - Continue with BRAT diet as tolerated today - Percocet / Bentyl available PRN as well as ibuprofen - Patient expresses concern of having any more imaging due to radiation exposure. 2. Adenocarcinoma of the liver - Dx: 05/2018 - Patient had started surgery on 07/2018 but was aborted given the location of tumor - s/p chemotherapy at [facility] - Patient follows at [facility] - Was scheduled to start radiation therapy 12/07; however, this will have to be postponed 3. Cystitis -CT did demonstrate Left 8 mm renal cyst, left nephrolithiasis, pt complains of some pelvic pressure, c/w monitoring for now she is on IV abx., no evidence of any hydro. per CT scan 4. DVT prophylaxis - c/w Lovenox DISPOSITION: - Patient reports that the LLQ pain has decreased in intensity and is only a throbbing, achy pain on deep palpation - likely 2/2 to acute diverticulitis as well as suprapubic tenderness/discomfort. - C/w Ceftriaxone, Metronidazole, she is s/p IV fluids and we are encouraging PO intake today. - Patient was scheduled to start radiation therapy 12/07 for adenocarcinoma of the liver, however this will have to be postponed. - We will see how she tolerates BRAT diet for the remainder of today. - Discussed with Surgery; will consider additional imaging if pain does not resolve; Patient reports concerns about getting any more imaging due to rad iation exposure; consider outpatient follow up for elective partial colectomy VS, I&O, 24H, Fishbone Vital Signs/I&O Vital Signs Date Time Temp Pulse Resp B/P (MAP) Pulse Ox O2 Delivery O2 Flow Rate FiO2 12/09/18 06:00 98.5 107 18 121/75 (90) 95 12/06/18 15:15 Room Air I&O- Last 24 Hours up to 6 AM 12/09/18 06:00 Intake Total 1280 ml Output Total 1800 ml Balance -520 ml Laboratory Data 24H LABS Laboratory Tests 2 12/09/18 05:25: Immature Granulocyte % (Auto) 0.6, White Blood Count 6.8, Red Blood Count 3.35L, Hemoglobin 10.9L, Hematocrit 32.3L, Mean Corpuscular Volume 96.4H, Mean Corpuscular Hemoglobin 32.5, Mean Corpuscular Hemoglobin Concent 33.7, Red Cell Distribution Width 13.4, Platelet Count 241, Neutrophils (%) (Auto) 76.1H, Lymphocytes (%) (Auto) 11.2L, Monocytes (%) (Auto) 11.7H, Eosinophils (%) (Auto) 0.3, Basophils (%) (Auto) 0.1, Neutrophils # (Auto) 5.1, Lymphocytes # (Auto) 0.8L, Monocytes # (Auto) 0.8, Eosinophils # (Auto) 0.0, Basophils # (Auto) 0.0, Nucleated Red Blood Cells % (auto) 0.0, Anion Gap 8, Glomerular Filtration Rate > 60.0, Blood Urea Nitrogen 6L, Creatinine 0.61, Sodium Level 141, Potassium Level 3.1L, Chloride Level 107, Carbon Dioxide Level 26, Calcium Level 8.4L, Magnesium Level 2.0 CBC/BMP Laboratory Tests 12/09/18 05:25 Red Blood Count 3.35 L, Mean Corpuscular Volume 96.4 H, Mean Corpuscular Hemoglobin 32.5, Mean Corpuscular Hemoglobin Concent 33.7, Red Cell Distribution Width 13.4, Neutrophils (%) (Auto) 76.1 H, Lymphocytes (%) (Auto) 11.2 L, Monocytes (%) (Auto) 11.7 H, Eosinophils (%) (Auto) 0.3, Basophils (%) (Auto) 0.1, Neutrophils # (Auto) 5.1, Lymphocytes # (Auto) 0.8 L, Monocytes # (Auto) 0.8, Eosinophils # (Auto) 0.0, Basophils # (Auto) 0.0, Calcium Level 8.4 L Microbiology Microbiology 12/06/18 Blood Culture - Preliminary, Resulted No Growth after 48 hours. All Specime... 12/06/18 Blood Culture - Preliminary, Resulted No Growth after 72 hours. All specime... 12/06/18 Urine Culture - Final, Complete GME ATTESTATION GME ATTESTATION My faculty preceptor for this patient encounter was physically present during the encounter and was fully available. All aspects of the patient interview, examination, medical decision making process, and medical care plan development were reviewed and approved by the faculty preceptor. The faculty preceptor is aware and concurs with the plan as stated in the body of this note and will attest to such by his/her cosignature. JAYSON MENDOZA OMS-3 Dec 09, 2018 09:41
--- NOTE | 2018-12-09 10:13 | DS.PDOC ---
Discharge Summary General Date of Admission Dec 06, 2018 at 14:39 Date of Discharge Dec 09, 2018 Attending Physician: TRANG CHRISTIANSON MD Discharge Summary ADMITTING / DISCHARGE DIAGNOSIS: 1. Abdominal pain - likely 2/2 acute diverticulitis, possibly developing abscess 2. Adenocarcinoma of the liver 3. Cystitis 4. DVT prophylaxis PROCEDURES PERFORMED DURING STAY: None HOSPITAL COURSE: Patient is a 68-year-old female with a PMHx of Diverticulitis and Adenocarcinoma of the liver (Dx: 05/2018; s/p chemotherapy at [facility]) who presented to the emergency room with abdominal pain. Patient has noted that shes had several episodes of diverticulitis in the past. She was recently being treated for diverticulitis as an outpatient and was started on Ciprofloxacin and Flagyl 2 days prior to presentation to the ER. Patient has reported that her abdominal pain occurs in the below her belly-button area. She reported the pain as a 5/10 on presentation to the ER, but at 10/10 the prior evening. The patient described the pain as a stabbing quality. She denies any discomfort with urination but does report bladder pressure. Patient reported that her weight has been fairly consistent over the last several months, but did report a weight loss of 1-2 pounds over last 2 days prior to admission. She also reports a poor appetite. The patient was found to be febrile in the ER and remained hemodynamically stable throughout her admission. Physical exam demonstrated exquisite tenderness at the left lower quadrant and feelings of pressure in the suprapubic region upon light and deep palpation. No significant leukocytosis or lactic acidosis was noted. Urinalysis was performed without any evidence of definitive infection. A CT of the abdomen/pelvis was performed on 12/06 and demonstrated findings consistent with distal descending and sigmoid colon diverticulitis. Blood and urine cultures were negative. Patient was started on IV Ceftriaxone and Metronidazole and IV fluids. Patient reported nausea overnight during her stay that was relieved with Ondansetron. Patient did not want any significant pain control other than Tylenol / Ibuprofen. Diet was advanced on 12/08 and BRAT diet was encouraged. Case was discussed with surgery; advised outpatient f/u with surgery. Discussed with gastroenterology Dr. Starr, who will establish surgical follow up at [facility]. She will be discharged with a disk of her imaging. Today patient reports improvement in symptoms and is tolerating oral intake. Patient is being discharged on Cefdinir and Flagyl. DISCHARGE MEDICATIONS: Please see below. ALLERGIES: Please see below. SUBJECTIVE: Patient is seen laying in bed with LLQ abdominal and suprapubic discomfort. She states that the LLQ pain is improved and that there is only a throbbing pain, instead of sharp pain that was reported yesterday. She had a loose bowel movement this morning that relieved some of the pain and discomfort. She denies blood in her stool. She reports that the bitter taste in her mouth has decreased but that food is still not appealing to her. She reports being able to eat yesterday evening. Patient denies blood in the urine but states that she still has suprapubic pressure associated with the end of urination, she denies dysuria or urgency. Patient has a PMHx of diverticulitis and adenocarcinoma of the liver (Dx: 05/2018; s/p chemotherapy at [facility]). Encouraging BRAT diet. Patient otherwise denies chest pain, shortness of breath, nausea, vomiting, fever and chills. OBJECTIVE: PHYSICAL EXAMINATION: VITAL SIGNS: Please see below. GENERAL: Patient is seen laying in bed and reporting LLQ and suprapubic discomfo rt and cramping. Otherwise patient denies chest pain, shortness of breath, nausea, vomiting, fever, chills. She is awake, alert, oriented speaking in complete sentences in no acute distress. HEENT: Moist mucous membranes, EOMI, No JVD appreciated CARDIOVASCULAR: S1 S2 regular no additional heart sounds appreciated RESPIRATORY: Clear to auscultation bilaterally, no wheezing, rales or rhonchi appreciated ABDOMINAL: Bowel sounds present x4 abdomen. Tenderness to deep palpation in the LLQ which she reports as an achy throbbing pain. Discomfort and pressure to light and deep palpation in located midline over her pubic symphysis. No tenderness reported in RUQ, RLQ, or LUQ. No rebound, rigidity, or guarding., no hepatosplenomegaly or masses appreciated. EXTREMITIES: No clubbing cyanosis or edema NEUROLOGICAL: Spontaneously moves all 4 extremities, no focal deficits. PSYCHOLOGICAL: Appropriate affect LABORATORY DATA, MICROBIOLOGY: Please see below. IMAGING STUDIES: - CT abdomen / pelvis 12/06: 1. There is a 6 cm mass with minimal heterogeneous enhancement in the left lobe of the liver unchanged compared to the previous study. 2. Left nephrolithiasis. 3. 8 mm left renal cyst. 4. Diverticulosis. 5. Findings consistent with distal descending and sigmoid colon diverticulitis. There is no definite perforation. DVT prophylaxis ordered: Lovenox ASSESSMENT AND PLAN: This is a 68-year-old female that presented with LLQ abdominal pain and suprapubic pressure with a past medical history of diverticulosis and adenocarcinoma of the liver. PROBLEMS: 1. Abdominal pain - likely 2/2 acute diverticulitis, possibly developing abscess 2. Adenocarcinoma of the liver (Dx: 05/2018; s/p chemotherapy at [facility]). Was scheduled to start radiation therapy 12/07; however, this had to be postponed 3. Cystitis DISPOSITION: Patient reports that the LLQ pain has decreased in intensity and is only a throbbing, achy pain on deep palpation - likely 2/2 to acute diverticulitis, as well as suprapubic tenderness/discomfort. Patient is being discharged on Cefdinir and Flagyl. Patient is tolerating food by mouth and is working with physical therapy to be cleared for discharge. She is eager to go home. DISCHARGE CONDITION: Improved and Stable. PROGNOSIS: Favorable FOLLOW UP: - Follow up with PCP within 5-7 days after discharge - Remain compliant with treatment plan and medications - Return to the ER if you experience any problems ACTIVITY: As prior to admission. DIET: As prior to admission. TIME SPENT ON DISCHARGE: 40 minutes Vital Signs/I&Os Vital Signs Date Time Temp Pulse Resp B/P (MAP) Pulse Ox O2 Delivery O2 Flow Rate FiO2 12/09/18 06:00 98.5 107 18 121/75 (90) 95 12/06/18 15:15 Room Air I&O- Last 24 Hours up to 6 AM 12/09/18 06:00 Intake Total 1280 ml Output Total 1800 ml Balance -520 ml Laboratory Data Labs 24H Laboratory Tests 2 12/09/18 05:25: Immature Granulocyte % (Auto) 0.6, White Blood Count 6.8, Red Blood Count 3.35L, Hemoglobin 10.9L, Hematocrit 32.3L, Mean Corpuscular Volume 96.4H, Mean Corpuscular Hemoglobin 32.5, Mean Corpuscular Hemoglobin Concent 33.7, Red Cell Distribution Width 13.4, Platelet Count 241, Neutrophils (%) (Auto) 76.1H, Lymphocytes (%) (Auto) 11.2L, Monocytes (%) (Auto) 11.7H, Eosinophils (%) (Auto) 0.3, Basophils (%) (Auto) 0.1, Neutrophils # (Auto) 5.1, Lymphocytes # (Auto) 0.8L, Monocytes # (Auto) 0.8, Eosinophils # (Auto) 0.0, Basophils # (Auto) 0.0, Nucleated Red Blood Cells % (auto) 0.0, Anion Gap 8, Glomerular Filtration Rate > 60.0, Blood Urea Nitrogen 6L, Creatinine 0.61, Sodium Level 141, Potassium Level 3.1L, Chloride Level 107, Carbon Dioxide Level 26, Calcium Level 8.4L, Magnesium Level 2.0 CBC/BMP Laboratory Tests 12/09/18 05:25 Red Blood Count 3.35 L, Mean Corpuscular Volume 96.4 H, Mean Corpuscular Hemoglobin 32.5, Mean Corpuscular Hemoglobin Concent 33.7, Red Cell Distribution Width 13.4, Neutrophils (%) (Auto) 76.1 H, Lymphocytes (%) (Auto) 11.2 L, Monocytes (%) (Auto) 11.7 H, Eosinophils (%) (Auto) 0.3, Basophils (%) (Auto) 0.1, Neutrophils # (Auto) 5.1, Lymphocytes # (Auto) 0.8 L, Monocytes # (Auto) 0.8, Eosinophils # (Auto) 0.0, Basophils # (Auto) 0.0, Calcium Level 8.4 L Microbiology Microbiology 12/06/18 Blood Culture - Preliminary, Resulted No Growth after 72 hours. All specime... 12/06/18 Blood Culture - Preliminary, Resulted No Growth after 72 hours. All specime... 12/06/18 Urine Culture - Final, Complete Discharge Medications Scheduled Cefdinir (Cefdinir) 300 Mg Capsule, 300 MG PO BID Metronidazole (Metronidazole) 250 Mg Tablet, 250 MG PO TID Continue for 10 more days from today Scheduled PRN Acetaminophen (Acetaminophen) 325 Mg Tablet, 650 MG PO Q4H PRN for PAIN, (Reported) Ondansetron HCl (Ondansetron HCl) 8 Mg Tablet, 8 MG PO Q8H PRN for NAUSEA OR VOMITING, (Reported) Allergies Coded Allergies: amoxicillin (Verified Allergy, Unknown, rash, 12/06/18) clavulanic acid (Verified Allergy, Unknown, rash, 12/06/18) morphine (Verified Adverse Reaction, Unknown, hallucinations, 12/06/18) GME ATTESTATION GME ATTESTATION My faculty preceptor for this patient encounter was physically present during the encounter and was fully available. All aspects of the patient interview, examination, medical decision making process, and medical care plan development were reviewed and approved by the faculty preceptor. The faculty preceptor is aware and concurs with the plan as stated in the body of this note and will attest to such by his/her cosignature. ATTENDING NOTE I, Trang Christianson, have both independently examined this patient, including my own physical exam, as well as reviewed the documentation and edited where necessary. I have discussed in detail with the resident the findings and plan of treatment as documented by the resident and edited their note. I agree with their findings and treatment plan and have edited their documentation. I will continue to follow the patient during this hospital stay. Time spent on discharge 37 minutes JAYSON MENDOZA OMS-3 Dec 09, 2018 10:13 ROGER KELLOGG DO Dec 09, 2018 12:24 TRANG CHRISTIANSON MD Dec 09, 2018 14:31
[2018-12-09] MEDS ORDERED: METR-135 PO (10:31)
[2018-12-09] MEDS ORDERED: CEFD300CAP PO (10:31)
== END 2018-12-09 13:22 | disposition home or self-care (01) ==
LOC: M ED 08:35 → M ED INP 14:39 → M MSPAV 15:28
PROVIDERS: ADMIT Internal Medicine; ATTEND Internal Medicine
DX: K57.32 Diverticulitis of large intestine without perforation or abscess without bleeding (principal); C22.9 Malignant neoplasm of liver, not specified as primary or secondary; R10.32 Left lower quadrant pain; N30.90 Cystitis, unspecified without hematuria; R11.0 Nausea; R50.9 Fever, unspecified; Z79.2 Long term (current) use of antibiotics; Z88.0 Allergy status to penicillin; Z88.5 Allergy status to narcotic agent
CPT/HCPCS: 36415; 74177; 80048; 80076; 81001; 82607; 82728; 82746; 83550; 83605; 83690; 83735; 84145; 85025; 87040; 87086; 96365; 96366; 96367; 96372; 96375; 96376; 97161; 99285; G0378; J0696; J0744; J1650; J2405; J3010; Q9963; Q9967

== ENCOUNTER → 2018-12-16 | Outpatient (REF) | payer MEDICARE, BC, OTHER ==
[~2018-12-16] MED LIST changes: +ACET1TAB55 PO; +CEFD300CAP PO; +METR-135 PO; +ONDA8TAB7 PO
[2018-12-16 17:22] LABS: APPEARANCE, URINE HAZY (CLEAR); BACTERIA, URINE AUTO NEGATIVE (NEGATIVE); BILIRUBIN, URINE AUTO NEGATIVE (NEGATIVE); BLOOD, URINE BLOOD NEGATIVE (NEGATIVE); CALCIUM OXALATE CRYSTALS LARGE; COLOR, URINE YELLOW (YELLOW); GLUCOSE, URINE (UA) AUTO NEGATIVE (NEGATIVE); KETONE, URINE AUTO NEGATIVE (NEGATIVE); LEUKOCYTE ESTERASE, URINE AUTO TRACE (NEGATIVE); MUCUS, URINE SMALL (NEGATIVE); NITRITE, URINE AUTO NEGATIVE (NEGATIVE); PROTEIN, URINE AUTO NEGATIVE (NEGATIVE); RBC, URINE AUTO 2 /HPF (0-3); SPECIFIC GRAVITY URINE AUTO 1.017 (1.002-1.035); SQUAMOUS EPITHELIAL CELL UR AU 1 /HPF (0-6); TRANSITIONAL EPITHELIAL AUTO 1 /HPF; UROBILINOGEN, URINE AUTO 0.2 mg/dL (0.0-2.0); WBC, URINE AUTO 5 /HPF (0-3)
== END ==
LOC: M LAB REF 16:18
PROVIDERS: ATTEND Internal Medicine
DX: N32.89 Other specified disorders of bladder (principal); R30.9 Painful micturition, unspecified

== ENCOUNTER → 2019-11-10 | Outpatient (CLI) | payer MEDICARE, BC, OTHER ==
[~2019-11-10] MED LIST changes: +B-12100021 PO; +CLAR10CA3 PO; +MIRA3350 PO; +OLAN10TA2 PO; +OMEP40CA97 PO; +ONDA8TAB10 PO; -ONDA8TAB7 PO; +PROC10TA4 PO
--- NOTE | 2019-11-10 11:22 | REP ---
RIGHT UPPER QUADRANT ULTRASOUND: Real-time sonographic evaluation of the right upper quadrant is performed. COMPARISON: CT 12/06/2018. Gallbladder demonstrates no evidence of intraluminal sludge or calculi, wall thickening or pericholecystic fluid. There is no intrahepatic or extrahepatic biliary dilatation, common bile duct measuring 5 mm in maximum diameter. Liver is heterogeneous in echotexture. There is a suggesting of an ill-defined lesion in the left lobe of the liver. This should be evaluated with repeat CT scan with IV contrast. Pancreas is not well visualized due to overlying bowel gas. Right kidney demonstrates no hydronephrosis with normal size 9.8 cm in length. IMPRESSION: No gallstones, gallbladder wall thickening, free fluid or biliary dilatation. Liver is not well evaluated. It is diffusely heterogeneous. Hypoechoic lesion in the left lobe is not well-defined, approximate diameter measured by the technologist is in the range of about 2 cm. Recommend evaluation with CT with contrast in order to compare with prior studies. Electronically Signed by Reji Baer MD 11/10/2019 12:50 P
== END ==
LOC: M LRY 08:49
PROVIDERS: ATTEND Nurse Practitioner Family
DX: R10.13 Epigastric pain (principal)

== ENCOUNTER → 2020-01-10 | Outpatient (REF) | payer MEDICARE, OTHER ==
[2020-01-10 14:41] LABS: C REACTIVE PROTEIN QUANTITATIV 0.3 MG/DL (0.00-0.30)
== END ==
LOC: M LAB REF 11:58
PROVIDERS: ATTEND Internal Medicine
DX: M15.9 Polyosteoarthritis, unspecified (principal); D37.6 Neoplasm of uncertain behavior of liver, gallbladder and bile ducts; K57.31 Diverticulosis of large intestine without perforation or abscess with bleeding

== ENCOUNTER 2021-05-14 19:27 | Emergency (ER) | payer MEDICARE, BC ==
[~2021-05-14] VITALS: Ht 157.5 cm; Wt 74.1 kg
[~2021-05-14 19:27] MED LIST changes: -OLAN10TA2 PO; +OLAN1TAB20 PO; +OMEP40CA4 PO; -OMEP40CA97 PO
--- OUTSIDE RECORDS SUMMARY | 2021-05-14 19:35 | CCD ---
Author Author [facility] Organization [facility] Address Unknown Phone Unavailable Care Team Providers Care [employer] Coordinator Name Role Phone El Dika, Imane Unavailable Unavailable El Dika, Imane Unavailable Unavailable El Dika, Imane Unavailable Unavailable El Dika, Imane Unavailable Unavailable El Dika, Imane Unavailable Unavailable Iftikhar Dika, Imane Unavailable Unavailable Quinton Mayo MD Unavailable Unavailable Quinton Mayo MD Unavailable Unavailable Quinton Mayo MD Unavailable Unavailable Quinton Mayo MD Unavailable Unavailable Quinton Mayo MD Unavailable Unavailable Quinton Mayo MD Unavailable Unavailable Quinton Mayo MD Unavailable Unavailable Quinton Mayo MD Unavailable Unavailable Quinton Mayo MD Unavailable Unavailable Quinton Mayo MD Unavailable Unavailable Quinton Mayo MD Unavailable Unavailable Quinton Mayo MD Unavailable Unavailable Quinton Mayo MD Unavailable Unavailable Quinton Mayo MD Unavailable Unavailable Quinton Mayo MD Unavailable Unavailable Quinton Maoy MD Unavailable Unavailable Quinton Mayo MD Unavailable Unavailable Quinton Mayo MD Unavailable Unavailable Quinton Mayo MD Unavailable Unavailable Quinton Mayo MD Unavailable Unavailable Quinton Mayo MD Unavailable Unavailable Quinton Mayo MD Unavailable Unavailable Quinton Mayo MD Unavailable Unavailable Quinton Mayo MD Unavailable Unavailable Quinton Mayo MD Unavailable Unavailable Quinton Mayo MD Unavailable Unavailable Quinton Mayo MD Unavailable Unavailable Quinton Mayo MD Unavailable Unavailable Quinton Mayo MD Unavailable Unavailable Quinton Mayo MD Unavailable Unavailable GaelQuinton MD Unavailable Unavailable GaelQuinton MD Unavailable Unavailable GaelQuinton MD Unavailable Unavailable GaelQuinton MD Unavailable Unavailable GaelQuinton MD Unavailable Unavailable GaelQuinton MD Unavailable Unavailable GaelQuinton MD Unavailable Unavailable GaelQuinton MD Unavailable Unavailable GaelQuinton MD Unavailable Unavailable GaelQuinton lemus MD Unavailable Unavailable GaelQuinton MD Unavailable Unavailable GaelQuinton MD Unavailable Unavailable GaelQuinton MD Unavailable Unavailable GaelQuinton MD Unavailable Unavailable GaelQuinton MD Unavailable Unavailable GaelQuinton MD Unavailable Unavailable GaelQuinton MD Unavailable Unavailable GaelQuinton MD Unavailable Unavailable GaelQuinton MD Unavailable Unavailable GaelQuinton benedict MD Unavailable Unavailable Quinton Mayo MD Unavailable Unavailable Quinton Mayo MD Unavailable Unavailable GaelQuinton lemus MD Unavailable Unavailable Quinton Mayo MD Unavailable Unavailable Quinton Mayo MD Unavailable Unavailable Quinton Mayo MD Unavailable Unavailable Quinton Mayo MD Unavailable Unavailable Quinton Mayo MD Unavailable Unavailable Quinton Mayo MD Unavailable Unavailable Quinton Mayo MD Unavailable Unavailable Quinton Mayo MD Unavailable Unavailable Quinton Mayo MD Unavailable Unavailable Quinton Mayo MD Unavailable Unavailable Quinton Mayo MD Unavailable Unavailable Quinton Mayo MD Unavailable Unavailable Quinton Mayo MD Unavailable Unavailable Quinton Mayo MD Unavailable Unavailable Quinton Mayo MD Unavailable Unavailable Quinton Mayo MD Unavailable Unavailable Quinton Mayo MD Unavailable Unavailable Quinton Mayo MD Unavailable Unavailable Quinton Mayo MD Unavailable Unavailable GaelQuinton lemus MD Unavailable Unavailable Quinton Mayo MD Unavailable Unavailable Quinton Mayo MD Unavailable Unavailable Quinton Mayo MD Unavailable Unavailable Quinton Mayo MD Unavailable Unavailable Quinton Mayo MD Unavailable Unavailable Quinton Mayo MD Unavailable Unavailable GaelQuinton lemus MD Unavailable Unavailable Gael M Idalia MD Unavailable Unavailable Quinton Mayo MD Unavailable Unavailable Quinton Mayo MD Unavailable Unavailable Quinton Mayo MD Unavailable Unavailable DAVID, J PATRICIO MD Unavailable Unavailable DAVID, J PATRICIO MD Unavailable Unavailable DAVID, J PATRICIO MD Unavailable Unavailable DAVID, J PATRICIO MD Unavailable Unavailable DAVID, J PATRICIO MD Unavailable Unavailable DAVID, J PATRICIO MD Unavailable Unavailable DAVID, J PATRICIO MD Unavailable Unavailable DAVID, J PATRICIO MD Unavailable Unavailable DAVID, J PATRICIO MD Unavailable Unavailable DAVID, J PATRICIO MD Unavailable Unavailable DAVID, J PATRICIO MD Unavailable Unavailable DAVID, J PATRICIO MD Unavailable Unavailable DAVID, J PATRICIO MD Unavailable Unavailable DAVID, J PATRICIO MD Unavailable Unavailable DAVID, J PATRICIO MD Unavailable Unavailable DAVID, J PATRICIO MD Unavailable Unavailable DAVID, J PATRICIO MD Unavailable Unavailable DAVID, J PATRICIO MD Unavailable Unavailable DAVID, J PATRICIO MD Unavailable Unavailable DAVID, J PATRICIO MD Unavailable Unavailable DAVID, J PATRICIO MD Unavailable Unavailable DAVID, J PATRICIO MD Unavailable Unavailable DAVID, J PATRICIO MD Unavailable Unavailable DAVID, J PATRICIO MD Unavailable Unavailable DAVID, J PATRICIO MD Unavailable Unavailable DAVID, J PATRICIO MD Unavailable Unavailable DAVID, J PATRICIO MD Unavailable Unavailable DAVID, J PATRICIO MD Unavailable Unavailable DAVID, J PATRICIO MD Unavailable Unavailable DAVID, J PATRICIO MD Unavailable Unavailable DAVID, J PATRICIO MD Unavailable Unavailable DAVID, J PATRICIO MD Unavailable Unavailable DAVID, J PATRICIO MD Unavailable Unavailable DAVID, J PATRICIO MD Unavailable Unavailable DAVID, J PATRICIO MD Unavailable Unavailable DAVID, J PATRICIO MD Unavailable Unavailable DAVID, J PATRICIO MD Unavailable Unavailable DAVID, J PATRICIO MD Unavailable Unavailable DAVID, J PATRICIO MD Unavailable Unavailable DAVID, J PATRICIO MD Unavailable Unavailable DAVID, J PATRICIO MD Unavailable Unavailable DAVID, J PATRICIO MD Unavailable Unavailable DAVID, J PATRICIO MD Unavailable Unavailable DAVID, J PATRICIO MD Unavailable Unavailable DAVID, J PATRICIO MD Unavailable Unavailable DAVID, J PATRICIO MD Unavailable Unavailable DAVID, J PATRICIO MD Unavailable Unavailable DAVID, J PATRICIO MD Unavailable Unavailable DAVID, J PATRICIO MD Unavailable Unavailable DAVID, J PATRICIO MD Unavailable Unavailable DAVID, J PATRICIO MD Unavailable Unavailable DAVID, J PATRICIO MD Unavailable Unavailable DAVID, J PATRICIO MD Unavailable Unavailable DAVID, J PATRICIO MD Unavailable Unavailable DAVID, J PATRICIO MD Unavailable Unavailable DAVID, J PATRICIO MD Unavailable Unavailable DAVID, J PATRICIO MD Unavailable Unavailable DAVID, J PATRICIO MD Unavailable Unavailable DAVID, J PATRICIO MD Unavailable Unavailable DAVID, J PATRICIO MD Unavailable Unavailable DAVID, J PATRICIO MD Unavailable Unavailable DAVID, J PATRICIO MD Unavailable Unavailable DAVID, J PATRICIO MD Unavailable Unavailable DAVID, J PATRICIO MD Unavailable Unavailable DAVID, J PATRICIO MD Unavailable Unavailable DAVID, J PATRICIO MD Unavailable Unavailable DAVID, J PATRICIO MD Unavailable Unavailable DAVID, J PATRICIO MD Unavailable Unavailable DAVID, J PATRICIO MD Unavailable Unavailable DAVID, J PATRICIO MD Unavailable Unavailable DAVID, J PATRICIO MD Unavailable Unavailable DAVID, J PATRICIO MD Unavailable Unavailable DAVID, J PATRICIO MD Unavailable Unavailable DAVID, J PATRICIO MD Unavailable Unavailable DAVID, J PATRICIO MD Unavailable Unavailable DAVID, J PATRICIO MD Unavailable Unavailable DAVID, J PATRICIO MD Unavailable Unavailable DAVID, J PATRICIO MD Unavailable Unavailable DAVID, J PATRICIO MD Unavailable Unavailable DAVID, J PATRICIO MD Unavailable Unavailable DAVID, J PATRICIO MD Unavailable Unavailable DAVID, J PATRICIO MD Unavailable Unavailable Fons, M Estefania AUTOMATIC PINSETTER MECHANIC Unavailable Unavailable Fons, M Estefania AUTOMATIC PINSETTER MECHANIC Unavailable Unavailable Fons, M Estefania AUTOMATIC PINSETTER MECHANIC Unavailable Unavailable Fons, M Estefania AUTOMATIC PINSETTER MECHANIC Unavailable Unavailable Fons, M Estefania AUTOMATIC PINSETTER MECHANIC Unavailable Unavailable Fons, M Estefania AUTOMATIC PINSETTER MECHANIC Unavailable Unavailable Fons, M Estefania AUTOMATIC PINSETTER MECHANIC Unavailable Unavailable Fons, M Estefania AUTOMATIC PINSETTER MECHANIC Unavailable Unavailable Fons, M Estefania AUTOMATIC PINSETTER MECHANIC Unavailable Unavailable Fons, M Estefania AUTOMATIC PINSETTER MECHANIC Unavailable Unavailable Fons, M Estefania AUTOMATIC PINSETTER MECHANIC Unavailable Unavailable Fons, M Estefania AUTOMATIC PINSETTER MECHANIC Unavailable Unavailable Fons, M Estefania AUTOMATIC PINSETTER MECHANIC Unavailable Unavailable Fons, M Estefania AUTOMATIC PINSETTER MECHANIC Unavailable Unavailable Fons, M Estefania AUTOMATIC PINSETTER MECHANIC Unavailable Unavailable Fons, M Estefania AUTOMATIC PINSETTER MECHANIC Unavailable Unavailable Fons, M Estefania AUTOMATIC PINSETTER MECHANIC Unavailable Unavailable Fons, M Estefania AUTOMATIC PINSETTER MECHANIC Unavailable Unavailable Fons, M Estefania AUTOMATIC PINSETTER MECHANIC Unavailable Unavailable Fons, M Estefania AUTOMATIC PINSETTER MECHANIC Unavailable Unavailable Fons, M Estefania AUTOMATIC PINSETTER MECHANIC Unavailable Unavailable Fons, M Estefania AUTOMATIC PINSETTER MECHANIC Unavailable Unavailable Fons, M Estefania AUTOMATIC PINSETTER MECHANIC Unavailable Unavailable Fons, M Estefania AUTOMATIC PINSETTER MECHANIC Unavailable Unavailable Fons, M Estefania AUTOMATIC PINSETTER MECHANIC Unavailable Unavailable Fons, M Estefania AUTOMATIC PINSETTER MECHANIC Unavailable Unavailable Fons, M Estefania AUTOMATIC PINSETTER MECHANIC Unavailable Unavailable Fons, M Estefania AUTOMATIC PINSETTER MECHANIC Unavailable Unavailable Fons, M Estefania AUTOMATIC PINSETTER MECHANIC Unavailable Unavailable Fons, M Estefania AUTOMATIC PINSETTER MECHANIC Unavailable Unavailable Fons, M Estefania AUTOMATIC PINSETTER MECHANIC Unavailable Unavailable Fons, M Estefania AUTOMATIC PINSETTER MECHANIC Unavailable Unavailable Fons, M Estefania AUTOMATIC PINSETTER MECHANIC Unavailable Unavailable Fons, M Estefania AUTOMATIC PINSETTER MECHANIC Unavailable Unavailable Fons, M Estefania AUTOMATIC PINSETTER MECHANIC Unavailable Unavailable Fons, M Estefania AUTOMATIC PINSETTER MECHANIC Unavailable Unavailable Fons, M Estefania AUTOMATIC PINSETTER MECHANIC Unavailable Unavailable Fons, M Estefania AUTOMATIC PINSETTER MECHANIC Unavailable Unavailable Fons, M Estefania AUTOMATIC PINSETTER MECHANIC Unavailable Unavailable Fons, M Estefania AUTOMATIC PINSETTER MECHANIC Unavailable Unavailable Fons, M Estefania AUTOMATIC PINSETTER MECHANIC Unavailable Unavailable Fons, M Estefania AUTOMATIC PINSETTER MECHANIC Unavailable Unavailable Fons, M Estefania AUTOMATIC PINSETTER MECHANIC Unavailable Unavailable Fons, M Estefania AUTOMATIC PINSETTER MECHANIC Unavailable Unavailable Fons, M Estefania AUTOMATIC PINSETTER MECHANIC Unavailable Unavailable Fons, M Estefania AUTOMATIC PINSETTER MECHANIC Unavailable Unavailable Fons, M Estefania AUTOMATIC PINSETTER MECHANIC Unavailable Unavailable Fons, M Estefania AUTOMATIC PINSETTER MECHANIC Unavailable Unavailable Fons, M Estefania AUTOMATIC PINSETTER MECHANIC Unavailable Unavailable Fons, M Estefania AUTOMATIC PINSETTER MECHANIC Unavailable Unavailable Fons, M Estefania AUTOMATIC PINSETTER MECHANIC Unavailable Unavailable Fons, M Estefania AUTOMATIC PINSETTER MECHANIC Unavailable Unavailable Fons, M Estefania AUTOMATIC PINSETTER MECHANIC Unavailable Unavailable Ayad, Darius DO Unavailable Unavailable Ayad, Darius DO Unavailable Unavailable Ayad, Darius DO Unavailable Unavailable Ayad, Darius DO Unavailable Unavailable Ayad, Darius DO Unavailable Unavailable Ayad, Darius DO Unavailable Unavailable Ayad, Darius DO Unavailable Unavailable Ayad, Darius DO Unavailable Unavailable Ayad, Darius DO Unavailable Unavailable Ayad, Darius DO Unavailable Unavailable Ayad, Darius DO Unavailable Unavailable Ayad, Darius DO Unavailable Unavailable Ayad, Darius DO Unavailable Unavailable Ayad, Darius DO Unavailable Unavailable Ayad, Darius DO Unavailable Unavailable Ayad, Darius DO Unavailable Unavailable Ayad, Darius DO Unavailable Unavailable Ayad, Darius DO Unavailable Unavailable Ayad, Darius DO Unavailable Unavailable Ayad, Darius DO Unavailable Unavailable Ayad, Darius DO Unavailable Unavailable Ayad, Darius DO Unavailable Unavailable Ayad, Darius DO Unavailable Unavailable Ayad, Darius DO Unavailable Unavailable Ayad, Darius DO Unavailable Unavailable Ayad, Darius DO Unavailable Unavailable Ayad, Darius DO Unavailable Unavailable Ayad, Darius DO Unavailable Unavailable Ayad, Darius DO Unavailable Unavailable Ayad, Darius DO Unavailable Unavailable Ayad, Darius DO Unavailable Unavailable Ayad, Darius DO Unavailable Unavailable Ayad, Darius DO Unavailable Unavailable Ayad, Darius DO Unavailable Unavailable Ayad, Darius DO Unavailable Unavailable Ayad, Darius DO Unavailable Unavailable Ayad, Darius DO Unavailable Unavailable Ayad, Darius DO Unavailable Unavailable Ayad, Darius DO Unavailable Unavailable Ayad, Darius DO Unavailable Unavailable Ayad, Darius DO Unavailable Unavailable Ayad, Darius DO Unavailable Unavailable Ayad, Darius DO Unavailable Unavailable Ayad, Darius DO Unavailable Unavailable Ayad, Daruis DO Unavailable Unavailable Ayad, Darius DO Unavailable Unavailable Ayad, Darius DO Unavailable Unavailable Ayad, Darius DO Unavailable Unavailable Ayad, Darius DO Unavailable Unavailable Ayad, Darius DO Unavailable Unavailable Ayad, Darius DO Unavailable Unavailable Ayad, Darius DO Unavailable Unavailable Ayad, Darius DO Unavailable Unavailable Ayad, Darius DO Unavailable Unavailable Ayad, Darius DO Unavailable Unavailable Ayad, Darius DO Unavailable Unavailable Ayad, Darius DO Unavailable Unavailable Ayad, Darius DO Unavailable Unavailable Ayad, Darius DO Unavailable Unavailable Ayad, Darius DO Unavailable Unavailable Ayad, Darius DO Unavailable Unavailable Ayad, Darius DO Unavailable Unavailable Ayad, Darius DO Unavailable Unavailable Ayad, Darius DO Unavailable Unavailable Ayad, Darius DO Unavailable Unavailable Ayad, Darius DO Unavailable Unavailable Ayad, Darius DO Unavailable Unavailable Ayad, Darius DO Unavailable Unavailable Ayad, Darius DO Unavailable Unavailable Ayad, Darius DO Unavailable Unavailable Ayad, Darius DO Unavailable Unavailable Ayad, Darius DO Unavailable Unavailable Ayad, Darius DO Unavailable Unavailable Ayad, Darius DO Unavailable Unavailable Ayad, Darius DO Unavailable Unavailable Re-disclosure Warning The records that you are about to access may contain information from federally-assisted alcohol or drug abuse programs. If such information is present, then the following federally mandated warning applies: This information has been disclosed to you from records protected by federal confidentiality rules (42 CFR part 2). The federal rules prohibit you from making any further disclosure of this information unless further disclosure is expressly permitted by the written consent of the person to whom it pertains or as otherwise permitted by 42 CFR part 2. A general authorization for the release of medical or other information is NOT sufficient for this purpose. The Federal rules restrict any use of the information to criminally investigate or prosecute any alcohol or drug abuse patient.The records that you are about to access may contain highly sensitive health information, the redisclosure of which is protected by Article 27-F of the [facility] Public Health law. If you continue you may have access to information: Regarding HIV / AIDS; Provided by facilities licensed or operated by the [facility] Office of Mental Health; or Provided by the [facility] Office for People With Developmental Disabilities. If such information is present, then the following [facility] mandated warning applies: This information has been disclosed to you from confidential records which are protected by state law. State law prohibits you from making any further disclosure of this information without the specific written consent of the person to whom it pertains, or as otherwise permitted by law. Any unauthorized further disclosure in violation of state law may result in a fine or [place] [facility] sentence or both. A general authorization for the release of medical or other information is NOT sufficient authorization for further disc losure. Allergies and Adverse Reactions Type Description Substance Reaction Status Data Source(s ) Drug allergy morphine morphine Hallucinations, Nausea [facility] Drug allergy Augmentin Augmentin Pruritic rash [facility] Family History Family Member Name Family Member Gender Family Member Status Date o f Status Description Data Source(s) Unknown Unknown Problem MEDENT ([facility]) mother Unknown Female Problem MEDENT ([facility]) Unknown Female Problem [facility] ([facility] Unknown Female Problem [facility] ([facility] Encounters Encounter Providers Location Date Indications Data Source(s ) Outpatient Attender: PATRICIO HERNANDEZ MDReferrer: Colleen Del Angel [id number] 05/10/2021 01:06:52 PM EST [facility] [place] Attender: PATRICOI HERNANDEZ MDReferrer: Colleen Del Angel [id number] 05/10/2021 01:06:22 PM EST [facility] Outpatient Attender: PATRICIO DAVID MDReferrer: Colleen ne Iftikhar MOURA_[id number] 05/10/2021 01:06:21 PM EST [facility] Outpatient Attender: PATRICIO DAVID MDReferrer: Colleen ne Iftikhar MOURA_[id number] 05/10/2021 01:04:51 PM EST [facility] Outpatient Attender: PATRICIO DAVID MDReferrer: Colleen ne Iftikhar Del Angel [id number] 05/10/2021 01:04:41 PM EST [facility] Outpatient Attender: PATRICIO DAVID MDReferrer: Colleen ne Iftikhar Del Angel [id number] 05/07/2021 02:05:08 PM EST [facility] Outpatient Attender: PATRICIO DAVID MDReferrer: Colleen ne Iftikhar Del Angel [id number] 05/07/2021 12:44:41 PM EST [facility] Outpatient Attender: PATRICIO DAVID MDReferrer: Colleen ne Iftikhar Del Angel [id number] 05/02/2021 10:36:25 AM EDT [facility] Outpatient Attender: PATRICIO DAVID MDReferrer: Colleen villa Iftikhar Del Angel [id number] 04/23/2021 10:23:56 PM EDT [facility] Outpatient Attender: PATRICIO DAVID MDReferrer: Colleen villa Iftikhar Del Angel [id number] 04/23/2021 04:22:35 PM EDT [facility] Outpatient Attender: PATRICIO DAVID MDReferrer: Colleen ne Iftikhar Del Angel [id number] 04/23/2021 02:18:24 PM EDT [facility] Outpatient Attender: PATRICIO DAVID MDReferrer: Colleen ne Iftikhar Del Angel [id number] 04/23/2021 01:14:38 PM EDT [facility] Outpatient Attender: PATRICIO DAVID MDReferrer: Colleen villa Iftikhar [id number] 04/23/2021 01:14:27 PM EDT [facility] Outpatient Attender: PATRICIO DAVID MDReferrer: Colleen villa Iftikhar [id number] 04/23/2021 12:48:45 PM EDT [facility] Outpatient Attender: PATRICIO DAVID MDReferrer: Colleen villa Iftikhar [id number] 04/23/2021 12:46:25 PM EDT [facility] Outpatient Attender: PATRICIO DAVID MDReferrer: Colleen villa Iftikhar De lAngel _[id number] 04/23/2021 12:44:33 PM EDT [facility] Outpatient Attender: PATRICIO DAVID MDReferrer: Colleen villa Iftikhar Del Angel [id number] 04/23/2021 12:42:43 PM EDT [facility] Outpatient Attender: PATRICIO DAVID MDReferrer: Colleen villa Iftikhar Del Angel [id number] 04/20/2021 07:51:18 PM EDT [facility] Outpatient Attender: PATRICIO DAVID MDReferrer: Colleen villa Iftikhar [id number] 04/09/2021 12:51:25 PM EDT [facility] Out[facility] Attender: PATRICIO DAVID MDReferrer: Colleen villa Iftikhar Del Angel [id number] 04/09/2021 12:51:15 PM EDT [facility] Out[facility] Attender: PATRICIO DAVID MDReferrer: Colleen villa Iftikhar Del Angel [id number] 04/04/2021 09:41:14 AM EDT [facility] Outpatient Attender: PATRICIO DVAID MDReferrer: Colleen villa Iftikhar Del Angel [id number] 03/27/2021 02:07:26 PM EDT [facility] Outpatient Attender: PATRICIO ZHOUZO MDReferrer: Colleen villa Iftikhar [id number] 03/27/2021 02:07:16 PM EDT [facility] Outpatient Attender: PATRICIO DAVID MDReferrer: Colleen villa Iftikhar MOURA_[id number] 03/20/2021 05:16:20 PM EDT [facility] Out[facility] Attender: PATRICIO DAVID MDReferrer: Colleen villa Iftikhar Del Angel [id number] 03/16/2021 03:44:02 PM EDT [facility] Out[facility] Attender: PATRICIO DAVID MDReferrer: Colleen villa Iftikhar Del Angel [id number] 03/16/2021 03:43:33 PM EDT [facility] Outpatient Attender: PATRICIO DAVID MDReferrer: Colleen villa Iftikhar Del Angel [id number] 03/12/2021 02:05:42 PM EDT [facility] Out[facility] Attender: PATRICIO DAVID MDReferrer: Colleen villa Iftikhar Del Angel [id number] 03/12/2021 02:05:30 PM EDT [facility] Out[facility] Attender: PATRICIO DAVID MDReferrer: Colleen villa Iftikhar [id number] 03/12/2021 02:05:21 PM EDT [facility] Out[facility] Attender: PATRICIO DAVID MDReferrer: Colleen villa Iftikhar Del Angel [id number] 03/12/2021 02:04:40 PM EDT [facility] Out[facility] Attender: PATRICIO DAVID MDReferrer: Colleen villa Iftikhar Del Angel [id number] 03/12/2021 02:03:39 PM EDT [facility] Out[facility] Attender: PATRICIO DAVID MDReferrer: Colleen villa Iftikhar Del Angel [id number] 03/12/2021 11:48:00 AM EDT [facility] Out[facility] Attender: PATRICIO DAVID MDReferrer: Colleen villa Iftikhar MOURA_[id number] 03/12/2021 11:47:50 AM EDT [facility] Out[facility] Attender: PATRICIO DAVID MDReferrer: Colleen villa Iftikhar MOURA_[id number] 03/12/2021 11:22:23 AM EDT [facility] Out[facility] Attender: PATRICIO DAVID MDReferrer: Colleen villa Iftikhar [id number] 02/28/2021 02:50:15 PM EDT [facility] Out[facility] Attender: PATRICIO DAVID MDReferrer: Colleen villa Iftikhar [id number] 02/28/2021 02:50:09 PM EDT [facility] Out[facility] Attender: PATRICIO DAVID MDReferrer: Colleen villa Iftikhar [id number] 02/28/2021 01:31:42 PM EDT [facility] Out[facility] Attender: PATRICIO DAVID MDReferrer: Colleen villa Iftikhar [id number] 02/26/2021 01:21:35 PM EDT [facility] Out[facility] Attender: PATRICIO DAVID MDReferrer: Colleen villa Iftikhar [id number] 02/26/2021 01:21:26 PM EDT [facility] Out[facility] Attender: PATRICIO DAVID MDReferrer: Colleen villa Iftikhar Del Angel [id number] 02/23/2021 10:57:57 AM EDT [facility] Out[facility] Attender: PATRICIO DAVID MDReferrer: Collene villa Iftikhar [id number] 02/20/2021 05:56:11 PM EDT [facility] Outpatient Attender: PATRICIO DAVID MDReferrer: Colleen villa Iftikhar [id number] 02/20/2021 05:56:01 PM EDT [facility] Out[facility] Attender: PATRICIO HERNANDEZ MD 02/15/2021 10:10:00 AM EDT [facility] Outpatient Attender: PATRICIO HERNANDEZ MD 02/15/2021 10:10:00 AM EDT [facility] of [facility] Outpatient Attender: PATRICIO DAVID MDReferrer: Colleen ne Iftikhar Del Angel _[id number] 02/12/2021 12:05:33 PM EDT [facility] Outpatient Attender: PATRICIO DAVID MDReferrer: Colleen ne Iftikhar Del Angel LH_[id number] 01/30/2021 06:14:54 PM EDT [facility] Outpatient Attender: PATRICIO DAVID MDReferrer: Colleen villa Iftikhar Del Angel LH_[id number] 01/29/2021 01:27:39 PM EDT [facility] Outpatient Attender: PATRICIO DAVID MDReferrer: Colleen ne Iftikhar Del Angel _[id number] 01/29/2021 01:27:28 PM EDT [facility]: PATRICIO DAVID MDReferrer: Colleen villa Iftikhar Del Angel _[id number] 01/25/2021 03:00:22 PM EDT [facility] Outpatient Attender: PATRICIO ZHOUZO MDReferrer: Colleen ne Iftikhar Del Angel _[id number] 01/25/2021 03:00:21 PM EDT [facility] Attender: PATRICIO DAVID MDReferrer: Colleen ne Iftikhar Del Angel _[id number] 01/24/2021 08:17:40 PM EDT [facility] Attender: PATRICIO DAVID MDReferrer: Colleen villa Iftikhar Del Angel LH_[id number] 01/24/2021 07:51:37 PM EDT [facility] Out[facility] Attender: PATRICIO DAVID MDReferrer: Colleen villa Iftikhar Del Angel LH_[id number] 01/24/2021 07:51:28 PM EDT [facility] Out[facility] Attender: PATRICIO DAVID MDReferrer: Colleen ne Iftikhar MOURA_[id number] 01/24/2021 07:51:27 PM EDT [facility] Out[facility] Attender: PATRICIO DAVID MDReferrer: Colleen villa Iftikhar MOURA_[id number] 01/17/2021 06:35:27 PM EDT [facility] Out[facility] Attender: PATRICIO DAVID MDReferrer: Colleen villa Iftikhar MOURA_[id number] 01/17/2021 03:37:34 PM EDT [facility] Out[facility] Attender: PATRICIO DAVID MDReferrer: Colleen villa Iftikhar MOURA_[id number] 01/15/2021 12:37:02 PM EDT [facility] Out[facility] Attender: PATRICIO DAVID MDReferrer: Colleen villa Iftikhar Del Angel _[id number] 01/15/2021 12:36:51 PM EDT [facility] Out[facility] Attender: PATRICIO DAVID MDReferrer: Colleen villa Iftikhar Del Angel _[id number] 01/12/2021 10:09:57 AM EDT [facility] Out[facility] Attender: PATRICIO HERNANDEZ MD 01/08/2021 09:59:00 AM EDT [facility] Out[facility] Attender: PATRICIO HERNANDEZ MD 01/08/2021 09:59:00 AM EDT [facility] Out[facility] Attender: PATRICIO DAVID MDReferrer: Colleen driver Iftikhar Del Angel _[id number] 01/03/2021 07:48:07 PM EDT [facility] Out[facility] Attender: PATRICIO DAVID MDReferrer: Colleen driver Iftikhar Del Angel _[id number] 11/01/2020 06:31:47 PM EDT [facility] Out[facility] Attender: PATRICIO DAVID MDReferrer: Colleen driver Iftikhar MOURA_[id number] 11/01/2020 06:31:47 PM EDT [facility] Out[facility] Attender: PATRICIO DAVID MDReferrer: Colleen driver Iftikhar MOURA_[id number] 10/30/2020 01:40:22 PM EDT [facility] Out[facility] Attender: PATRICIO DAVID MDReferrer: Colleen villa Iftikhar MOURA_[id number] 10/25/2020 06:20:17 PM EDT [facility] Out[facility] Attender: PATRICIO DAVID MDReferrer: Colleenrodrigo driver Iftikhar MOURA_[id number] 10/25/2020 06:20:06 PM EDT [facility] Out[facility] Attender: PATRICIO DAVID MDReferrer: Colleen driver Iftikhar MOURA_[id number] 10/25/2020 09:32:54 AM EDT [facility] Out[facility] Attender: PATRICIO DAVID MDReferrer: Colleen driver Iftikhar MOURA_[id number] 10/17/2020 07:34:20 PM EDT [facility] Out[facility] Attender: PATRICIO DAVID MDReferrer: Colleen driver Iftikhar Del Angel _[id number] 10/16/2020 03:56:37 PM EDT [facility] Out[facility] Attender: PATRICIO DAVID MDReferrer: Colleen driver Iftikhar MOURA_[id number] 10/16/2020 03:26:44 PM EDT [facility] Out[facility] Attender: PATRICIO DAVID MDReferrer: Colleen driver Iftikhar MOURA_[id number] 10/16/2020 03:25:05 PM EDT [facility] Out[facility] Attender: PATRICIO DAVID MDReferrer: Colleen driver Iftikhar MOURA_[id number] 10/16/2020 03:24:04 PM EDT [facility] Out[facility] Attender: PATRICIO DAVID MDReferrer: Colleen driver Iftikhar MOURA_[id number] 10/02/2020 10:09:06 AM EDT [facility] Out[facility] Attender: PATRICIO DAVID MDReferrer: Colleen ne Iftikhar Del Angel [id number] 10/02/2020 10:01:38 AM EDT [facility] Out[facility] Attender: PATRICIO DAVID MDReferrer: Colleen ne Iftikhar Del Angel [id number] 09/27/2020 04:25:49 AM EDT [facility] Out[facility] Attender: Estefania PAEZ SJP[facility] 09/21/2020 12:00:00 AM EDT [facility] Outpatient Attender: PATRICIO DAVID MDReferrer: Colleen ne Iftikhar Del Angel [id number] 09/19/2020 11:12:28 AM EDT [facility] Out[facility] Attender: PATRICIO DAVID MDReferrer: Colleen ne Iftikhar Del Angel [id number] 09/18/2020 01:53:23 PM EDT [facility] Out[facility] Attender: PATRICIO DAVID MDReferrer: Colleen ne Iftikhar Del Angel [id number] 09/18/2020 01:30:40 PM EDT [facility] Out[facility] Attender: PATRICIO DAVID MDReferrer: Colleen ne Iftikhar Del Angel [id number] 09/04/2020 09:17:17 AM EST [facility] Out[facility] Attender: PATRICIO DAVID MDReferrer: Colleen ne Iftikhar Dihugo [id number] 09/04/2020 09:05:55 AM EST [facility] Out[facility] Attender: PATRICIO DAVID MDReferrer: Colleen ne Iftikhar Dika [id number] 08/30/2020 08:37:32 AM EST [facility] Out[facility] Attender: PATRICIO DAVID MDReferrer: Colleen ne Iftikhar Dika [id number] 08/30/2020 04:35:50 AM EST [facility] Out[facility] Attender: PATRICIO ZHOUZO MDReferrer: Colleen ne Iftikhar Del Angel _[id number] 08/21/2020 09:22:39 AM EST [facility] Outpatient Attender: PATRICIO HERNANDEZ MD 08/14/2020 02:11:00 PM EST [facility] Outpatient Attender: PATRICIO HERNANDEZ MD 08/14/2020 02:11:00 PM EST [facility] Outpatient Attender: PATRICIO ZHOUZO MDReferrer: Colleen ne Iftikhar Mer _[id number] 08/07/2020 08:19:56 AM EST [facility] Outpatient Attender: PATRICIO ZHOUZO MDReferrer: Colleen ne Iftikhar Siobhanhugo MOURA_[id number] 08/02/2020 04:43:09 AM EST [facility] Outpatient Attender: PATRICIO ZHOUZO MDReferrer: Colleen ne Iftikhar Del Angel _[id number] 07/24/2020 01:30:04 PM EST [facility] Outpatient Attender: PATRICIO DAVID MDReferrer: Colleen ne Iftikhar Del Angel _[id number] 07/21/2020 07:10:52 AM EST [facility] Outpatient Attender: Idalia Martinez 01:30:00 PM EST [facility] ([facility] ) Outpatient Attender: PATRICIO DAVID MDReferrer: Colleen ne Iftikhar Mccannhugo _[id number] 07/17/2020 01:57:31 PM EST [facility] Outpatient Attender: PATRICIO DAVID MDReferrer: Colleen ne Iftikhar Del Angel [id number] 07/17/2020 01:39:25 PM EST [facility] Outpatient Attender: PATRICIO DAVID MDReferrer: Colleen ne Iftikhar Mer LH_[id number] 07/17/2020 12:41:52 PM EST [facility] Outpatient Attender: PATRICIO DAVID MDReferrer: Colleen ne Iftikhar MOURA_[id number] 07/12/2020 10:46:39 AM EST [facility] Out[facility] Attender: PATRICIO DAVID MDReferrer: Colleen ne Iftikhar MOURA_[id number] 07/10/2020 02:25:31 PM EST [facility] Out[facility] Attender: PATRICIO DAVID MDReferrer: Colleen ne Iftikhar MOURA_[id number] 07/10/2020 02:20:56 PM EST [facility] Out[facility] Attender: PATRICIO DAVID MDReferrer: Colleen ne Iftikhar MOURA_[id number] 07/10/2020 09:46:55 AM EST [facility] Out[facility] Attender: PATRICIO DAVID MDReferrer: Colleen ne Iftikhar MOURA_[id number] 07/10/2020 09:10:54 AM EST [facility] Out[facility] Attender: PATRICIO DAVID MDReferrer: Colleen villa Iftikhar Del Angel _[id number] 07/06/2020 03:18:06 PM EST [facility] Out[facility] Attender: PATRICIO DAVID MDReferrer: Colleen villa Iftikhar Del Angel _[id number] 07/06/2020 01:47:58 PM EST [facility] Out[facility] Attender: PATRICIO DAVID MDReferrer: Colleen ne Iftikhar Del Angel _[id number] 07/06/2020 10:35:31 AM EST [facility] Out[facility] Attender: PATRICIO DAVID MDReferrer: Colleen villa Iftikhar Del Angel _[id number] 07/05/2020 08:28:38 AM EST [facility] Out[facility] Attender: PATRICIO DAVID MDReferrer: Colleen villa Iftikhar MOURA_[id number] 07/01/2020 04:30:43 AM EST [facility] Out[facility] Attender: PATRICIO DAVID MDReferrer: Colleen ne Iftikhar Del Angel _[id number] 06/29/2020 11:30:29 AM EST [facility] Out[facility] Attender: PATRICIO DAVID MDReferrer: Colleen ne Iftikhar MOURA_[id number] 06/28/2020 10:52:32 AM EST [facility] Out[facility] Attender: PATRICIO DAVID MDReferrer: Colleen ne Iftikhar MOURA_[id number] 06/26/2020 02:43:12 PM EST [facility] Out[facility] Attender: PATRICIO DAVID MDReferrer: Colleen ne Iftikhar Del Angel _[id number] 06/19/2020 09:27:13 AM EST [facility] Out[facility] Attender: PATRICIO DAVID MDReferrer: Colleen villa Iftikhar Del Angel _[id number] 06/05/2020 02:53:52 PM EST [facility] Out[facility] Attender: PATRICIO DAVID MDReferrer: Colleen ne Iftikhar Del Angel _[id number] 06/05/2020 02:08:56 PM EST [facility] Out[facility] Attender: PATRICIO DAVID MDReferrer: Colleen ne Iftikhar Del Angel _[id number] 05/31/2020 10:13:52 AM EST [facility] Out[facility] Attender: PATRICIO DAVID MDReferrer: Colleen villa Iftikhar Del Angel _[id number] 05/31/2020 09:21:17 AM EST [facility] Out[facility] Attender: PATRICIO DAVID MDReferrer: Colleen villa Iftikhar Del Angel _[id number] 05/30/2020 12:41:25 PM EST [facility] Out[facility] Attender: PATRICIO DAVID MDReferrer: Colleen villa Iftikhar Del Angel _[id number] 05/30/2020 11:38:35 AM EST [facility] Out[facility] Attender: PATRICIO HERNANDEZ MD 05/23/2020 02:09:00 PM EST [facility] Out[facility] Attender: PATRICIO DAVID MDReferrer: Colleen ne Iftikhar MOURA_[id number] 05/23/2020 09:12:45 AM EST [facility] Out[facility] Attender: PATRICIO ZHOUZO MDReferrer: Colleen ne Iftikhar MOURA_[id number] 05/22/2020 08:20:30 AM EST [facility] Out[facility] Attender: PATRICIO DAVID MDReferrer: Colleen ne Iftikhar MOURA_[id number] 04/11/2020 03:47:03 PM EDT [facility] Out[facility] Attender: PATRICIO DAVID MDReferrer: Colleen ne Iftikhar MOURA_[id number] 04/11/2020 12:14:58 PM EDT [facility] Out[facility] Attender: PATRICIO DAVID MDReferrer: Colleen ne Iftikhar MOURA_[id number] 04/11/2020 11:28:26 AM EDT [facility] Out[facility] Attender: PATRICIO DAVID MDReferrer: Colleen ne Iftikhar MOURA_[id number] 04/11/2020 11:20:28 AM EDT [facility] Out[facility] Attender: PATRICIO DAVID MDReferrer: Colleen ne Iftikhar MOURA_[id number] 04/11/2020 11:12:21 AM EDT [facility] Out[facility] Attender: PATRICIO DAVID MDReferrer: Colleen ne Iftikhar MOURA_[id number] 04/11/2020 11:03:28 AM EDT [facility] Out[facility] Attender: PATRICIO DAVID MDReferrer: Colleen ne Iftikhar MOURA_[id number] 04/06/2020 05:41:53 AM EDT [facility] Out[facility] Attender: Darius Lion DO 04/04/2020 12:00:00 AM [facility] Outpatient Attender: Darius Lion DO 03/28/2020 12:00:00 AM [facility] Immunizations Vaccine Date Status Description Data Source(s) COVID-19 VACCINE Pfizer 10/12/2020 12:00:00 AM EDT completed [facility] Vaccine Series Complete: YESThis Data wa s Submitted to [facility] Via [employer]. COVID-19 VACCINE [facility] 09/21/2020 12:00:00 AM EDT completed [facility] Vaccine Series Complete: NOThis Data was Submitted to [facility] Via [employer]. Medications Medication Brand Name Start Date Product Form Dose Route Admi nistrative Instructions Pharmacy Instructions Status Indications Reaction Description Data Source(s) pantoprazole 20 MG Delayed Release Oral Tablet Pantoprazole Sodium 03/08/2021 12:00:00 AM EDT ORAL active M [facility] ([facility]) Biotin 5 MG Oral Capsule Biotin 5000 03/08/2021 12:00:00 AM EDT ORAL active [facility] ([facility]) Lidocaine 25 MG/ML / Prilocaine 25 MG/ML Topical Cream 2.5-2.5 % LIDOCAINE/PRILOCAINE 02/12/2021 12:00:00 AM EDT cream 5 APPLY TO AFFECTED AREA(S) ON PORT 1 HOUR PRIOR TO ACCESS COVER WITH PLASTIC WRAP APPLY TO AFFECTED AREA(S) ON PORT 1 HOUR PRIOR TO ACCESS COVER WITH PLASTIC WRAP SOLD: 02/15/2021 [facility] 20 mg 10/18/2020 12:00:00 AM EDT tablet,delayed release (DR/EC) 90 TAKE ONE TABLET BY MOUTH EVERY DAY TAKE ONE TABLET BY MOUTH EVERY DAY SOLD: 10/18/2020 [facility] 20 mg 10/18/2020 12:00:00 AM EDT tablet,delayed release (DR/EC) 90 TAKE ONE TABLET BY MOUTH EVERY DAY TAKE ONE TABLET BY MOUTH EVERY DAY SOLD: 04/25/2021 [facility] pantoprazole 40 MG Delayed Release Oral Tablet pantoprazole (PROTONIX) 40 MG tablet pantoprazole (PROTONIX) 40 MG tablet 09/05/2020 12:00:00 AM EST 40 mg Oral active Take 40 mg by mouth daily [facility] 10 mg 05/24/2020 12:00:00 AM EST tablet 30 TAKE ONE TABLET BY MOUTH THREE TIMES A DAY NEEDED FOR NAUSEA TAKE ONE TABLET BY MOUTH THREE TIMES A D AY NEEDED FOR NAUSEA SOLD: 05/30/2020 [facility] 8 mg 05/15/2020 12:00:00 AM EST tablet 90 TAKE ONE TABLET BY MOUTH EVERY 8 HOURS NEEDED TAKE ONE TABLET BY MOUTH EVERY 8 HOURS NEEDED SOLD: 05/24/2020 [facility] pantoprazole 40 MG Delayed Release Oral Tablet PANTOPRAZOLE SODIUM 05/02/2020 12:00:00 AM EST tablet,delayed release (DR/EC) 30 T BASILIA ONE TABLET BY MOUTH EVERY DAY TAKE ONE TABLET BY MOUTH EVERY DAY SOLD: 07/24/2020 [facility] pantoprazole 40 MG Delayed Release Oral Tablet PANTOPRAZOLE SODIUM 05/02/2020 12:00:00 AM EST tablet,delayed release (DR/EC) 30 T BASILIA ONE TABLET BY MOUTH EVERY DAY TAKE ONE TABLET BY MOUTH EVERY DAY SOLD: 05/09/2020 [facility] pantoprazole 40 MG Delayed Release Oral Tablet PANTOPRAZOLE SODIUM 05/02/2020 12:00:00 AM EST tablet,delayed release (DR/EC) 30 T BASILIA ONE TABLET BY MOUTH EVERY DAY TAKE ONE TABLET BY MOUTH EVERY DAY SOLD: 09/06/2020 [facility] pantoprazole 40 MG Delayed Release Oral Tablet PANTOPRAZOLE SODIUM 05/02/2020 12:00:00 AM EST tablet,delayed release (DR/EC) 30 T BASILIA ONE TABLET BY MOUTH EVERY DAY TAKE ONE TABLET BY MOUTH EVERY DAY SOLD: 06/15/2020 [facility] 3 ML heparin sodium, porcine 100 UNT/ML Prefilled Syringe heparin flush (porcine) 100 UNIT/ML injection 500 Units heparin flush (porcine) 100 UNIT/ML injection 500 Units 02/14/2020 10:55:06 AM EDT 500 U Intracatheter active 500 Units, Intracatheter, GA N, Line Care, Starting Fri02/14/20 at 1055, For 30 days [facility] Medication administered onsite Lidocaine 25 MG/ML / Prilocaine 25 MG/ML Topical Cream Lidocaine-Prilocaine 2.5- 2.5 % External Cream Lidocaine-Prilocaine 2.5-2.5 % External Cream 11/25/19 12:00:00 AM EDT active To apply to port site prior to accessing [facility] Lidocaine 25 MG/ML / Prilocaine 25 MG/ML Topical Cream lidocaine-prilocaine (EMLA) cream lidocaine-prilocaine (EMLA) cream 11/25/2019 12:00:00 AM EDT active To apply to port site [email or web address] or to accessing [facility] Omeprazole 40 MG Delayed Release Oral Ca psule omeprazole (PRILOSEC) 40 MG capsule omeprazole (PRILOSEC) 40 MG capsule 40 mg Oral aborted Take 40 mg by mouth as needed [facility] Insurance Providers Payer name Policy type / Coverage type Policy ID Covered green party ID Covered green party's relationship to palacio Policy Palacio Plan Information MEDICARE [id number] SP [id number] [id number] [place] Plan [facility] Commercial [id number] Self [place] Plan [facility] Part B [id number] Self [id number] [employer] BCBS [id number] [id number] [facility] [id number] SP [id number] [employer] BCBS [id number] Ana Maria YLS [id number] [facility] [id number] SP [id number] MEDICARE A [id number] Self [id number] A MEDICARE [id number] xxxxxxxxxxx [id number] MEDICARE [id number] Ana Maria [id number] T32 MEDICARE A [id number] Self [id number] T32 Medicare Primary [id number] T32 MEDICARE [id number] Ana Maria [id number] A EMPIRE PLAN [facility] U [id number] Self [id number] BCBS [place] [id number] SP [id number] [place] Plan Secondary [id number] Medicare Natl Gov't Servi Medicare Primary [id number] Self Medicare Medicare Primary [id number] Self Medicare [facility] Medicare Primary [id number] Self [place] [facility] Health Maintenance Organization (HMO) [id number] Family Dependent EMPIRE (STATE EMP) P [id number] S [id number] [place] (STATE EMP) P [id number] S [id number] [facility] [id number] BCBS EMPIRE [place] DIV [id number] SELF PAY 2 UNAVAILABLE 1 UNAVAILA BLE [place] AESTHETIC 5 UNAVAILABLE 1 UNAVAILABLE [id number] MEDICARE C [id number] S [id number] T32 [facility] [id number] S [id number] MEDICARE [id number] SP [id number] T32 BS [place] DIV [id number] SP [id number] EXCELLUS BLUE CROSS BLUE SHIELD HEA [id number] S [id number] MEDICARE MCA [id number] S [id number] AT32 MEDICARE MCA [id number] S [id number] MEDICARE [id number] SP [id number] A [facility] Part B [id number] Self [id number] Medicare Natl Gov't Servi Medicare Primary [id number] Self [id number] [facility] [id number] Self [id number] Medicare Natl Gov't Servi Medicare Primary [id number] Self [id number] MEDICARE C [id number] S [id number] A Medicare Medicare Primary [id number] Self [id number] [facility] Part B [id number] Self Problems, Conditions, and Diagnoses Code Display Name Description Problem Type Effective Dates Data Source(s) I31.3 Pericardial effusion Pericardial effusion [id number] 09/21/2020 12:00:00 AM EDT [facility] Surgeries/Procedures Procedure Description Date Indications Data Source(s) ECG ROUTINE ECG W/LEAST 12 LDS W/I&R <td>POCT AMB EKG</td><td>Routine</td><td>09/21/2020 12:22 PM EDT</td><td> Palpitations</td><td> </td> 09/21/2020 04:22:00 PM EDT Palpitations [facility] Palpitations Results ID Date Data Source [id number] 04/16/2021 12:25:10 PM EDT [facility] Name Value Range Interpretation Code Description Data [place] rce(s) Supporting Document(s) *No Show Note MAGED v1 [facility] XVUIYj0oNlRANgVwe1kcTFomXZPsd7KtEKa4QK0HZ7CtXGgiudDpBZGftgAoR4VkIQHlFPIUEAonGFZq TX1 [file] MDAwMDAxODczNyAwMDAwMCBuDQowMDAwMDAyMzEyID OnJWSvIB6AQfLoBQRbLAS9GZHuKLJiRGLoxy5RCZQrRZUkKfS3LqAwITUgWEZfDVuxRSYuZJBgXfT7JU WwCOVmJV8KArXkVVQyEPv1LxfyVWOaESYeco7YCRWwYAToJDpeJJLqJSBvCDDsTMppMIErYFTjTGtpOK PdEUVxMF3EKrLeBWDhVSL5JxztGGAsNLRmzj8RZXDj FDSkUPz9WWOzELYuBEEmQZcxFREfORE0QRyfCBNxAOLhVX5UJaWdPRKpDZipGvjsMDSjLTTmtz5TJOTc LSOtOSs5OXMoFEGyWRNhHXbqWMUlWXXeXPT0LBKfYCUtPM4EKtZhPWTyQcX3AMRlCAVzYFHfmu2JWWAb BLKmNEj6ItFbNMXtNSUmHQfqCVTwMNEtIJt6HXDkRD TwGX9COsLvKZNvZgK4ZFVyDOEjPUAjng4XDQNdSMViNpanYfVpELEgQXXeAArnTRZiALT1DDZ1QBRbRA WaAQ4OVzYdMYlvKUHJDvj4AGcqTP9txnOnHrAhFTVMIx5Sx234YIBwHFFZAYnvZ8o0QWTtCG5BEv5KWj 9Xj8GldhR4baDpBGq5QLXtQv4CHSCFQ8VWXj== ID Date Data Source [id number] 03/20/2021 03:02:43 PM EDT [facility] Name Value Range Interpretation Code Description Data [place] rce(s) Supporting Document(s) *Follow Up Visit MAGED v1 [facility] KJOWPy3mJrSXCcIsp9ykKOplNNKhp1TaPZn0NF7JS8VaS0UMu9LbGU1Db2QHa10cGZixBCCpf9Euqb1o kZW [file] Photo Machine Operator+oVxRrtt2vyy1BgI50kjsBMzC3T/B74/ZACH+WdJr49aal/67vEr0bjy4jr//xlmea0H8c+P8GfTe7 [file] el6Fczdb7bCuN12xsUkEKA740wpBL4gg0/lVXf5XykY048++aH/owRYsQ9bsOw71KjQ99tspCoXjw+BIOMEDICAL SERVICE ENGINEER [file] xJPxPXgFfghvxI/isaiah/QLGZDYCgXa99AJq2xkQ8moma ysIA+WwdO6bToCUhLJmXP85lIvOWOewi0toaGskKhvCWeyN2ikyGuGnT3uv4aJ9Mqxi69DdIudhEEgQL Ojm2vcPlz+fwN/K/w9zb/Ct/Rk08m8bhSNLxVSAHqTKV7NPfrCjax3BIvycub+Q8wDV1Z+1FpYWpeYG0 NaoxlyPhqQz5OBKaaUHwMAhbgYxXq7S8EwExpFpk5Y 95bIR48yMcCcUPO/HfgIKsV/QEsFwoFVpKfQHvwJOUV/E00Yh3S94tTc6H51EgJVjuK5FlkyCaonI0WO HJUVYVXT0Ha7XbOx2L4WjnJRfXewefaCc9sPkKtomi0eUt3FVeZp4h2KbcX3IK0F9IB5S54HrnZ/4w+X o0/QN/tX5RPtBwjZqZcFDI2Do+Sf9LZXf04R68zFUV oAVuZ+fKl7qLi6VtAssfQBnePlxbgnqW3KWBkeFkrMM2Pp2Os3FV9KBKATFOtBcXn5vd1ZG7j0Nc1BXH NVkx2XP/7PY18QhQyVVVszFJbmdX9uBj0iszihEQyjZZ0Q055xlpI01ndxy9Uw3l5IwOIfdBqOI8zdks m1SxhhXM/hNaCH/dD/1U+bfHsNx7vTi5Mj3SEwT72w x+/g9/Ev8+5AEYMva0RelVzTFg0LlBDd1I56Ak2IEYDGPjAjZJM2H/F9Yv7CwumrqRiYlOozr1ihc9tc L9P7TXQq5U8p3LvvsVaipC1nbO7BMsQGPqqCkmZ+BM+nYo4Vm6dyMAE74y3RIxhixv63QzItti0RWfTl Mu8gD4nwEpl0LerEqC76+gUWawQRCs4M+hmNQZOgha 2dWD8KWgnXuxHu0eF+TPoHeHmpnKZiE4TdECrhUyVklq1VXTGDPiopgWtbszOmF6scjAJ4ThR0qDZ7ZP VsxCW5IuIM4oCQpt5vG4lib17lKVUxj4ts9/Vb0B/D1pCMmp8X+5R06U37Bkj5wmPLdw88GQ95c6vtH4 8MQMjyLrozsVNlv9dmw82JZklSo5JRYqLXOu/ [file] 0K ID Date Data Source [id number] 03/20/2021 03:00:00 PM EDT Hematology On [facility] [place] CHEST, ABDOMEN AND PELVIS WITH CONTR AST INDICATION: Cholangiocarcinoma. Evaluate response to therapy. COMPARISON: 01/17/2021 TECHNIQUE: CT of the chest, abdomen and pelvis was performed following intravenous administration of 100 mL of Omnipaque-300. Prior to scanning the patient was given oral contrast. Sagittal and coronal reformatted images were obtained. One or more of the following dose reduction techniques were utilized in effectively lowering the radiation dose for this examination: Automated Exposure Control, Adjustment of the mA and/or kV according to patient size, or Iterative reconstruction. FINDINGS: CHEST: No significant axillary, mediastinal, or hilar lymphadenopathy is identified. There are no pleural or pericardial effusions. The trachea and central bronchi are patent. A right-sided Tixrsg-j-Rltn is noted. Subsegmental atelectasis is noted at the right lung base. Otherwise, the lungs are clear. No suspicious pulmonary nodule is identified. ABDOMEN: Since the prior study, there has been no significant interval change in relatively hyperdense heterogeneous central hepatic mass at the dome, measuring approximately 3.9 cm x 3.2 cm x 4.9 cm. A stable right hepatic dome lesion is seen, measuring 1.0 x 1.3 cm. There is no significant intrahepatic or extrahepatic biliary ductal dilatation. A catheter is seen within the right upper quadrant, unchanged. Otherwise, the liver, gallbladder, pancreas, spleen, adrenal glands, and kidneys are unremarkable. There is no evidence of abdominal aortic aneurysm. No significant abdominal or retroperitoneal lymphadenopathy is identified. Evaluation of the gastrointestinal tract demonstrates no evidence of bowel obstruction, pneumoperitoneum, or acute inflammatory process. The patient is status post low anterior resection. There is no abdominal or pelvic ascites. PELVIS: The urinary bladder appears unremarkable. The patient is status post hysterectomy. Evaluation of the osseous structures demonstrates no gross lytic or blastic lesion. There is grade 1 spondylolisthesis at L5-S1. IMPRESSION: Since 01/17/2021, Stable examination. CHEST: No evidence of intrathoracic metastases. ABDOMEN AND PELVIS: Stable central hepatic mass measuring up to 4.9 cm, compatible with known cholangiocarcinoma. Stable small right hepatic dome lesion, measuring 1.3 cm. Professional interpretation performed at [facility] . Name Value Range Interpretation Code Description Data [place] rce(s) Supporting Document(s) ID Date Data Source [id number] 03/20/2021 03:00:00 PM EDT [facility] CT CHEST, ABDOMEN AND PELVIS WITH CONTR AST INDICATION: Cholangiocarcinoma. Evaluate response to therapy. COMPARISON: 01/17/2021 TECHNIQUE: CT of the chest, abdomen and pelvis was performed following intravenous administration of 100 mL of Omnipaque-300. Prior to scanning the patient was given oral contrast. Sagittal and coronal reformatted images were obtained. One or more of the following dose reduction techniques were utilized in effectively lowering the radiation dose for this examination: Automated Exposure Control, Adjustment of the mA and/or kV according to patient size, or Iterative reconstruction. FINDINGS: CHEST: No significant axillary, mediastinal, or hilar lymphadenopathy is identified. There are no pleural or pericardial effusions. The trachea and central bronchi are patent. A right-sided Ylhxgu-y-Ycse is noted. Subsegmental atelectasis is noted at the right lung base. Otherwise, the lungs are clear. No suspicious pulmonary nodule is identified. ABDOMEN: Since the prior study, there has been no significant interval change in relatively hyperdense heterogeneous central hepatic mass at the dome, measuring approximately 3.9 cm x 3.2 cm x 4.9 cm. A stable right hepatic dome lesion is seen, measuring 1.0 x 1.3 cm. There is no significant intrahepatic or extrahepatic biliary ductal dilatation. A catheter is seen within the right upper quadrant, unchanged. Otherwise, the liver, gallbladder, pancreas, spleen, adrenal glands, and kidneys are unremarkable. There is no evidence of abdominal aortic aneurysm. No significant abdominal or retroperitoneal lymphadenopathy is identified. Evaluation of the gastrointestinal tract demonstrates no evidence of bowel obstruction, pneumoperitoneum, or acute inflammatory process. The patient is status post low anterior resection. There is no abdominal or pelvic ascites. PELVIS: The urinary bladder appears unremarkable. The patient is status post hysterectomy. Evaluation of the osseous structures demonstrates no gross lytic or blastic lesion. There is grade 1 spondylolisthesis at L5-S1. IMPRESSION: Since 01/17/2021, Stable examination. CHEST: No evidence of intrathoracic metastases. ABDOMEN AND PELVIS: Stable central hepatic mass measuring up to 4.9 cm, compatible with known cholangiocarcinoma. Stable small right hepatic dome lesion, measuring 1.3 cm. Professional interpretation performed at [facility] . Name Value Range Interpretation Code Description Data [place] rce(s) Supporting Document(s) ID Date Data Source [id number] 01/17/2021 02:01:14 PM EDT [facility] Name Value Range Interpretation Code Description Data [place] rce(s) Supporting Document(s) *Follow Up Visit MAGED v1 [facility] [id number]Rb3AP9RK7TbE0RILKofgQHrR85fRDYbgHMusv3LP0O1nVHb gL0 [file] Patient Accounts Clerk+[id number]+[id number]GsvYVXynhvuZWscfnUVnx [file] aOHzvWpxPXEDXhCgWNW1Um3HQADEP6YWYe== ID Date Data Source [id number] 01/17/2021 12:59:00 PM EDT [facility] CT OF THE ABDOMEN AND PELVIS CLINICAL I NDICATION: 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 ATTEMPTED SURGICAL RESECTION 07/2018 WAS ABORTED D/T EXTENSIVE INTRAVASCULAR INVOLVEMENT. DIVERTICULITIS REQUIRING SURGICAL RESECTION. S/P CHEMO/RT WITH XELODA 01/2019. RESTARTED CHEMO 03/2019- 06/2019. TECHNIQUE: Helical axial images of the abdomen and pelvis were obtained from lung bases through the greater trochanters and displayed at 5 and 1 mm interval. 100 mL Omnipaque 300 was administered intravenously. Oral contrast was given. One or more of the following dose reduction techniques were utilized in effectively lowering the radiation dose for this examination: Automated Exposure Control, Adjustment of the mA and/or kV according to patient size, or Iterative reconstruction. COMPARISON: CT abdomen and pelvis 10/17/2019 07/06/2019 FINDINGS: A hypodense rim-enhancing lesion at the dome of the liver measures 16 x 12 x 15 mm and previously measured 14 x 14 x 15 mm. There is a heterogeneous mass located centrally within the liver in total measuring up to 39 x 46 x 37 mm. Previously, this mass measured approximately 25 x 39 x 23 mm. There is ill- defined hypodensity in the right superior hepatic lobe with vessels coursing normally through this area of low-attenuation. This could be related to focal fatty infiltration. Tiny focus of hypoattenuation in the posterior caudate lobe is unchanged. There is atrophy of the left hepatic lobe, as seen previously. Again seen is residual infusion catheter in the anterior abdomen. Previously mentioned pseudoaneurysm near the distal tip is now barely perceptible. There is no free fluid or free air. The spleen is mildly enlarged measuring 12.3 cm, unchanged. The adrenal glands, pancreas and kidneys are within normal limits. A prominent peripancreatic lymph node is present, measuring 9 mm in short axis, unchanged. There are no dilated loops of bowel. No free fluid or free air is identified. There is a suture line associated with the sigmoid colon. In the pelvis, the uterus is not seen. There are no adnexal masses. The urinary bladder is grossly unremarkable. There is no acute fracture or suspicious osseous lesion. For details above the diaphragm, please refer to separately dictated CT of the thorax. IMPRESSION: Interval increase in the size of a central hepatic mass. A lesion near the dome of the liver is not significantly changed in size. New moderate sized area of ill-defined hypoattenuation in the superior right hepatic lobe with vessels coursing normally through this area, may represent focal fatty infiltration. This can be confirmed with MRI. X1 Name Value Range Interpretation Code Description Data [place] rce(s) Supporting Document(s) ID Date Data Source [id number] 01/17/2021 12:48:00 PM EDT [facility] [place] [facility] [place]AST CLINICAL INDICAT ION: Cholangiocarcinoma, evaluate response to treatment.. TECHNIQUE: Multidetector axial images were obtained from the thoracic inlet through the domes of the diaphragm following the administration of 100 cc of Omnipaque-300. One or more of the following dose reduction techniques were utilized in effectively lowering the radiation dose for this examination: Automated Exposure Control, Adjustment of the mA and/or kV according to patient size, or Iterative reconstruction. COMPARISON: CT thorax 10/16/2020 FINDINGS: The heart is not enlarged, and there is no pericardial disease. No enlarged mediastinal, hilar or axillary lymph nodes are identified. The central airways are patent. Areas of linear scarring at the right lung base are similar to the previous examination. There is a new very small small right pleural effusion. There is no pneumothorax. There is no acute fracture or suspicious osseous lesion. For details below the diaphragm, please refer to CT of the abdomen and pelvis dated the same. IMPRESSION: No evidence of metastatic disease in the chest. New very small right pleural effusion. X1 Name Value Range Interpretation Code Description Data [place] rce(s) Supporting Document(s) ID Date Data Source [id number] 10/17/2020 05:09:32 PM EDT [facility] Name Value Range Interpretation Code Description Data [place] rce(s) Supporting Document(s) *Follow Up Visit MAGED v1 [facility] ECVIRi6uJaUZSwUsl8yeOTsrACByu7JpUCf4PE3AM4T2dYFdA8QapLPfw9vLVa6NYNifTKM1l5M0JN7R 2LT [file] a2DtA9fTX58tAc6/HPPynx+l/fj53QfuT9okrkE3+TvD6U2fog+PP04+BIOMEDICAL SERVICE ENGINEER/8wmTDvHZ7qkRf8vHD1flK [file] ID Date Data Source [id number] 10/16/2020 01:45:00 PM EDT [facility] CHEST ABDOMEN AND PELVIS WITH IV CONT RAST INDICATION: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 ATTEMPTED SURGICAL RESECTION 07/2018 WAS ABORTED D/T EXTENSIVE INTRAVASCULAR INVOLVEMENT. DIVERTICULITIS REQUIRING SURGICAL RESECTION. S/P CHEMO/RT WITH XELODA 01/2019. RESTARTED CHEMO 03/2019- 06/2019. COMPARISON:Outside CT chest 02/14/2020. CT abdomen and pelvis 07/06/2019IV CONTRAST: 100 mL Omnipaque 300 One or more of the following dose reduction techniques were utilized in effectively lowering the radiation dose for this examination: Automated Exposure Control, Adjustment of the mA and/or kV according to patient size, or Iterative reconstruction. CT CHEST: FINDINGS: LUNGS: Areas of minimal scarring most pronounced in the lung bases and right middle lobe similar to prior. No pulmonary nodules or masses. Central airways are patent. PLEURA AND PERICARDIUM: No pleural or pericardial effusions. MEDIASTINUM AND MARY ANNE: Coronary artery calcification. No adenopathy. Small hiatal hernia. CHEST WALL: Right chest port. No axillary adenopathy. Small clip or calcification in the medial right breast similar to prior. Mild multilevel degenerative disc change. No skeletal metastases are identified. IMPRESSION: No acute abnormality or significant interval change. No metastatic disease is identified in the chest. CT ABDOMEN AND PELVIS: FINDINGS: LIVER: In the dome of the liver there is a heterogeneous lesion with central hypodensity and peripheral higher attenuation measuring 16 x 17 mm. This appears subjectively slightly smaller than prior best demonstrated on coronal images. Inferolateral to this point there are several millimeter hypodense lesions which remain unchanged. Centimeter-sized low-attenuation just posterior to the caudate lobe of indeterminate etiology. No definite change. In the central liver gallo hepatis and medial segment left lobe there is an infiltrating hypodense lesion measuring 45 x 39 mm. Size is subjectively similar to prior. Peripheral to the lesion there is atrophy and mi ld ductal dilatation in the left lobe comparable to prior. Surgical clips in the gallo hepatis. Residual infusion catheter in the anterior abdomen. Near the central tip in the gallo hepatis there is considerable reduction of adjacent residual nonenhancing pseudoaneurysm. Maximal diameter now 10 mm where previously when 24 mm. Clips and coils in the gallo hepatis are again noted. Left portal vein system appears mildly attenuated. Main and right portal vein systems are patent. Left hepatic vein system not clearly identified. Middle and right hepatic veins are patent. SPLEEN: Normal. PANCREAS: Normal. ADRENALS: Normal bilaterally. KIDNEYS/: Subcentimeter hypodensity in the left lower kidney too small to characterize unchanged from prior. Otherwise normal kidneys. Grossly normal bladder. Uterus removed. No abnormally enlarged adnexal structures. BOWEL/GI: No bowel obstruction. Sigmoid anastomotic suture line. No adjacent mass or indication of stricture. No diverticulitis or colitis. No appendicitis. No free air or free fluid. No omental or peritoneal tumor is identified. NODES/RETROPERITONEUM: No adenopathy or AAA. SKELETAL: L5-S1 pars defects. Minimal degenerative endplate changes. No skeletal metastases are identified. IMPRESSION: Residual low-attenuation lesion in the central liver with left lobe atrophy and mild ductal dilatation similar to prior. Lesion in the dome of the liver likely representing peripheral metastasis appears slightly smaller. Indeterminate significance to subtle area of low-attenuation posterior to the caudate lobe with no definite change. Substa ntial further regression of pseudoaneurysm gallo hepatis tip of residual infusion catheter. No adenopathy. No new or progressive metastatic disease. Professional interpretation performed at [facility] [place] . 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 ATTEMPTED SURGICAL RESECTION 07/2018 WAS ABORTED D/T EXTENSIVE INTRAVASCULAR INVOLVEMENT. DIVERTICULITIS REQUIRING SURGICAL RESECTION. S/P CHEMO/RT WITH XELODA 01/2019. RESTARTED CHEMO 03/2019- 06/2019. COMPARISON:Outside CT chest 02/14/2020. CT abdomen and pelvis 07/06/2019IV CONTRAST: 100 mL Omnipaque 300 One or more of the following dose reduction techniques were utilized in effectively lowering the radiation dose for this examination: Automated Exposure Control, Adjustment of the mA and/or kV according to patient size, or Iterative reconstruction. CT CHEST: FINDINGS: LUNGS: Areas of minimal scarring most pronounced in the lung bases and right middle lobe similar to prior. No pulmonary nodules or masses. Central airways are patent. PLEURA AND PERICARDIUM: No pleural or pericardial effusions. MEDIASTINUM AND MARY ANNE: Coronary artery calcification. No adenopathy. Small hiatal hernia. CHEST WALL: Right chest port. No axillary adenopathy. Small clip or calcification in the medial right breast similar to prior. Mild multilevel degenerative disc change. No skeletal metastases are identified. IMPRESSION: No acute abnormality or significant interval change. No metastatic disease is identified in the chest. CT ABDOMEN AND PELVIS: FINDINGS: LIVER: In the dome of the liver there is a heterogeneous lesion with central hypodensity and peripheral higher attenuation measuring 16 x 17 mm. This appears subjectively slightly smaller than prior best demonstrated on coronal images. Inferolateral to this point there are several millimeter hypodense lesions which remain unchanged. Centimeter-sized low-attenuation just posterior to the caudate lobe of indeterminate etiology. No definite change. In the central liver gallo hepatis and medial segment left lobe there is an infiltrating hypodense lesion measuring 45 x 39 mm. Size is subjectively similar to prior. Peripheral to the lesion there is atrophy and mi ld ductal dilatation in the left lobe comparable to prior. Surgical clips in the gallo hepatis. Residual infusion catheter in the anterior abdomen. Near the central tip in the gallo hepatis there is considerable reduction of adjacent residual nonenhancing pseudoaneurysm. Maximal diameter now 10 mm where previously when 24 mm. Clips and coils in the gallo hepatis are again noted. Left portal vein system appears mildly attenuated. Main and right portal vein systems are patent. Left hepatic vein system not clearly identified. Middle and right hepatic veins are patent. SPLEEN: Normal. PANCREAS: Normal. ADRENALS: Normal bilaterally. KIDNEYS/: Subcentimeter hypodensity in the left lower kidney too small to characterize unchanged from prior. Otherwise normal kidneys. Grossly normal bladder. Uterus removed. No abnormally enlarged adnexal structures. BOWEL/GI: No bowel obstruction. Sigmoid anastomotic suture line. No adjacent mass or indication of stricture. No diverticulitis or colitis. No appendicitis. No free air or free fluid. No omental or peritoneal tumor is identified. NODES/RETROPERITONEUM: No adenopathy or AAA. SKELETAL: L5-S1 pars defects. Minimal degenerative endplate changes. No skeletal metastases are identified. IMPRESSION: Residual low-attenuation lesion in the central liver with left lobe atrophy and mild ductal dilatation similar to prior. Lesion in the dome of the liver likely representing peripheral metastasis appears slightly smaller. Indeterminate significance to subtle area of low-attenuation posterior to the caudate lobe with no definite change. Substa ntial further regression of pseudoaneurysm gallo hepatis tip of residual infusion catheter. No adenopathy. No new or progressive metastatic disease. Professional interpretation performed at [facility] [place] . Name Value Range Interpretation Code Description Data [place] rce(s) Supporting Document(s) ID Date Data Source [id number] 07/10/2020 02:08:14 PM EST [facility] Name Value Range Interpretation Code Description Data [place] rce(s) Supporting Document(s) *Follow Up Visit MAGED v1 [facility] KAFOUn4kRnNXUkZbq9rfECidIJCmf6NiGJw9JK9SM6Drei8Vl1HbFEInXGZXHUlyS8Q4gXD8WS87NX60 uMS [file] HPrKaBE+n25E/UeQk5XNmGfAn3YMyh3Tfdn4Rsj0hZGz6RttVr/vR/s6035VeCOgfqACs97+Wj0Lz/BOOKKEEPER ASSISTANT [file] AwMDUwMCAwMDAwMCBuDQowMDAwMDAzNDgwIDAwMDAw TN0INiPxZWToQRH5BddrCKAtHQTtsf5AXEJeAQWvKBJ1EkKpBGCuMHWwOYanYAEjPALvNBT5OXQjGBDy WB9QToRtVDVzBBVbIHniTSHpLDPhdd8SEHRyIYE9BiF1HpXkKNBwMHGqBBpoKUQrAAH9SwZ9APIlMTIn NM9OFhJfRABiYDX6SyihIBByTBHwhw1GXBLbXTExZs WvKPSaDENvEKCiTZejZNRxIFJlQrUbJEEwOYYnKN5DTyLzSDHdMkNcWetjBDNgFTJjvc0EUYLnBYS6Te L3EUBxBRQnPXVkMMzcYVUjVSXyHDS8BZZtWIIzKP9SUbTySPEdFYCnByFdDCOrMGLxvs3YLOVmORVyNv O0RWZqVTHaGBFnKGlaRTKcLOQ2AHZuERIdJUTlTB8V QhMoBZPvJWVvRSHfRRVeDDGosy5XGTYdTBG3KRNxCFMpZDGmMKIvEFbnLFLpUVC9RVBoLALjJNLcRX3J JpLiZVVmLTSfInAhPSZcDSEzfw3ZCJIwNMF7FoM8WqLiQSDlOMMpISzjYKPsIFY4ZnEcFGBjWYOkIC3N PnNtIDZqFLV2JrbpWZObLIIyhv3HVIFlIUM3MQSxMs ReYNYuBBCnLDwvGBYuWTN3RgpkMWJbADQiZE9VDsOzSVMdKdA2ZagzBLLoUOTojq5SWZJjMQI5IoLtNd CgSDEhHOQpHWasPVZxRPP8PLVnOLDvMCIyUT8YYbGmAVDgPgJ1LYXkLFSoVGWfmj9JCAYdDAE9WJUlEZ LvNHErVZGePXcdAKIgDQD9RgmaHJOeYNKdZN1WJkPr YZJgOai8OYvjUFIoKJVfcb8QPRKuVGS8BpeoPdDpFDFjIOLjBBnuNCVoULk6VcD0HDUtGALiQW9WOwOf UInhXJHQUpf1IKelPN0ahmKjNnNoVTTRFr5Rq656DJJnPCZXIJehC8o9QMF6BO4LTj8JXj0Mu1XvkiJ2 qnFkDGywNoZqMtGSHdCvND8OXGc= ID Date Data Source [id number] 07/06/2020 04:44:00 PM EST [facility] CT OF THE ABDOMEN AND PELVIS CLINICAL I NDICATION: Evaluate disease process. TECHNIQUE: Helical axial images of the abdomen and pelvis were obtained from lung bases through the greater trochanters and displayed at five and 1 mm interval. Images were obtained after the intravenous administration of 100 mL Omnipaque 300. One or more of the following dose reduction techniques were utilized in effectively lowering the radiation dose for this examination: Automated Exposure Control, Adjustment of the mA and/or kV according to patient size, or Iterative reconstruction. COMPARISON: CT abdomen and pelvis 02/14/2020. CT abdomen and pelvis 05/01/2020 FINDINGS: Again seen is a hypodense mass at the level of the left portal vein extending toward the gallo hepatis. This mass measures approximately 44 x 37 mm and previously measured 44 x 38 mm. A heterogeneous enhancing mass at the dome of the liver measures 22 x 18 x 22 mm and previously measured 23 x 18 x 20 mm. No new liver lesion is identified. There is a left hepatic arterial infusion pump tubing at the gallo hepatis. There is been interval decrease in the sizes of an adjacent pseudoaneurysm which may now be completely thrombosed. This now measures 23 x 24 mm and previously measured up to 29 x 31 mm. The spleen, adrenal glands, pancreas and kidneys are unremarkable. The gallbladder is absent. There are no dilated loops of bowel. No free fluid or free air is identified. A moderate amount of colonic stool is noted. There are no enlarged mesenteric or retroperitoneal lymph nodes. In the pelvis, the urinary bladder is grossly unremarkable. The uterus is not visualized. There are no adnexal masses. There is no acute fracture or suspicious osseous lesion. Chronic bilateral pars defects are noted at L5-S1. The lung bases are clear. IMPRESSION: Hypodense mass in the left hepatic lobe extending toward the gallo hepatis, unchanged. Heterogeneously enhancing mass at the dome of the liver, not significantly changed. Interval decrease in the size of a now thrombosed pseudoaneurysm adjacent to arterial pump tubing in the right upper quadrant. . X1 Name Value Range Interpretation Code [facility]s) ID Date Data Source [id number] 06/19/2020 07:05:28 PM EST [facility] SPECIMEN DESCRIPTION STOOLSPECIAL REQUESTS NONERESULT NEGATIVE FOR ENTERIC PATHOGENS BY PCR.NOTE: THIS MOLECULAR ASSAY DETECTS THE FOLLOWING ENTERIC PATHOGENS:CAMPYLOBACTER GROUP (COLI, JEJUNI, ANAHI), SALMONELLA SPECIES,SHIGELLA SPECIES (DYSENTERIAE, BOYDII, SONNEI, FLEXNERI), VIBRIOGROUP (CHOLERAE, PARAHAEMOLYTICUS), YERSINIA ENTEROCOLITICA, SHIGATOXIN 1, SHIGA TOXIN 2, NOROVIRUS GROUP 1 AND 2, ROTAVIRUS A. REPORT STATUS FINAL 06/20/2020 Name Value Range Interpretation Code Description Data [facility](s) Supporting Document(s) SPECIMEN DESCRIPTION Laborator y [facility] COMMENT Laboratory [facility] ID Date Data Source [id number] 06/20/2020 10:27:13 AM EST Laboratory [facility] SPECIMEN DESCRIPTION STOOLSPECIAL REQUESTS NONERESULT NEGATIVE FOR ENTERIC PATHOGENS BY PCR.NOTE: THIS MOLECULAR ASSAY DETECTS THE FOLLOWING ENTERIC PATHOGENS:CAMPYLOBACTER GROUP (COLI, JEJUNI, ANAHI), SALMONELLA SPECIES,SHIGELLA SPECIES (DYSENTERIAE, BOYDII, SONNEI, FLEXNERI), VIBRIOGROUP (CHOLERAE, PARAHAEMOLYTICUS), YERSINIA ENTEROCOLITICA, SHIGATOXIN 1, SHIGA TOXIN 2, NOROVIRUS GROUP 1 AND 2, ROTAVIRUS A. REPORT STATUS FINAL 06/20/2020 Name Value Range Interpretation Code Description Data [place] rce(s) Supporting Document(s) ID Date Data Source [id number] 05/31/2020 10:41:17 PM EST [facility] Name Value Range Interpretation Code Description Data [place] rce(s) Supporting Document(s) AP - Telehealth Visit Note MAGED v1 [facility] CJCZXy3zYsWSChZug2hxMYlxOVEko4SeUKn0CV4WY0N0bRUsD6BmtOExf6tBZb9SsXLbwUQVygCxizLr KL1 [file] ZC9SdxN9OiHmrO6fwSWDrKfay9nN92xN4X7j+c OzoTosDoWcs8bu3dieYixGpBkcBRr0afF1KJ7QDeDlqBVRy6buqNw0Nxt856Cm+Y2IvyhOwUyJ+qWurX 5plCbodLZm9CZQnGQ2Nyu62IuaSt/LsBIO+tv4F+N28c+FF542elj3MsnZb4F+tIQ4+ztFcSIgIcAgtG tA0vFlizy3yK6TrzsS57De95Cb882ohyiifDiYM2r1 rTB35Nblo2F6RDvG6XXGmWSSI8JzICDUKLXANhyV45Hcv6OvJLvWr1utlr4Oy3rbh9zY9uWkTJw6Eg0b 6GMGGjrN6KZ17y0NgUHW+SMlaP4m0gg3d+IQptKJ7IuOLP18EHgZkRhUZMcb5MGhFhOqcWA1xzJYim9Z fjvWfA6+Ax3GjoLJt9zn2mp5E1D3e5oLEdn/5WUAlo bMwsR3fYnXuDhkx5v+Prakash/YBH4P219hhiJrLfOJW4HZJDG98UDpsPugIJqGFTXRZwFoPPVoJJ18aD2U+ [file] GIrHDw8Wc283QPEiVQVCNGm+Fn3MQUmcuYQulIelJJRSEiN4KaDtKD3MDQPEU7ORBh== ID Date Data Source [id number] 05/15/2020 06:09:00 PM EST [facility] Name Value Range Interpretation Code Description Data [place] rce(s) Supporting Document(s) SARS CORONAVIRUS 2 RNA:PRTHR:PT:NPH:ORD:PROBE.AMP.TAR [place] This lab was ordered by [facility] and reported by [facility]. ID Date Data Source [id number] 04/04/2020 05:58:00 AM EDT [place] Name Value Range Interpretation Code Description Data [place] rce(s) Supporting Document(s) SARS CORONAVIRUS 2 RNA:PRTHR:PT:NPH:ORD:PROBE.AMP.TAR [place] This lab was ordered by [facility] and reported by [facility]. ID Date Data Source [id number] 04/03/2020 03:53:00 PM EDT [place] Name Value Range Interpretation Code Description Data [place] rce(s) Supporting Document(s) SARS CORONAVIRUS 2 RNA:PRTHR:PT:NPH:ORD:PROBE.AMP.TAR [place] This lab was ordered by [facility] and reported by [facility]. Procedure Social History Code Duration Value Status Description Data Source(s ) Alcohol intake 09/21/2020 12:00:00 AM EDT Yes completed [facility] Smoking 09/21/2020 12:00:00 AM EDT Never smoker completed Never s cindaker [facility] Vital Signs ID Date Data Source UNK Name Value Range Interpretation Code Description Data Source(s) Systolic blood pressure 118 mm[Hg] 118 mm[Hg] M EDENT ([facility]) RT Arm Diastolic blood pressure 74 mm[Hg] 74 mm[Hg] MEDENT ([facility]) RT Arm Heart rate 80 /min 80 /min MEDENT ([facility]) Body height 62.25 [in_i] 62.25 [in_i] MEDENT ([facility]) 5'2.25" Body weight 170.00 [lb_av] 170.00 [lb_av] MEDEN T ([facility]) Body mass index (BMI) [Ratio] 30.8 kg/m2 30.8 k g/m2 [facility] Systolic blood pressure 125 mm[Hg] 125 mm[Hg] [facility] Diastolic blood pressure 85 mm[Hg] 85 mm[Hg] [facility] ([facility]) Body height 62 [in_i] 62 [in_i] [facility] ([facility]) 5'2" Body weight 167.25 [lb_av] 167.25 [lb_av] MEDEN T ([facility]) Body mass index (BMI) [Ratio] 30.6 kg/m2 30.6 k g/m2 [facility] ([facility]) [place] body weight 110 [lb_av] 110 [lb_av] MEDEN T ([facility]) Body weight 75.865 kg 75.865 kg [facility] ([facility]) Body surface area Derived from formula 1.77 m2 1.77 m2 [facility] ([facility], ) Systolic blood pressure 130 mm[Hg] 130 mm[Hg] [facility] Diastolic blood pressure 86 mm[Hg] 86 mm[Hg] [facility] Heart rate 96 /min 96 /min [facility] Body height 157.5 cm 157.5 cm [facility] Body weight 77.565 kg 77.565 kg [facility] Body mass index (BMI) [Ratio] 31.28 kg/m2 31.28 kg/m2 [facility] Oxygen saturation in Arterial blood by Pulse oximetry 96 % 96 % [facility] Systolic blood pressure 128 mm[Hg] 128 mm[Hg] M EDENT ([facility]) Diastolic blood pressure 68 mm[Hg] 68 mm[Hg] MEDENT ([facility]) Heart rate 91 /min 91 /min MED[facility] ([facility]) Body height 62.25 [in_i] 62.25 [in_i] MEDENT ([facility]) 5'2.25" Body weight 170.00 [lb_av] 170.00 [lb_av] MEDEN T ([facility]) Oxygen saturation in Arterial blood by Pulse oximetry 96 % 96 % MED[facility] ([facility]) Body mass index (BMI) [Ratio] 30.8 kg/m2 30.8 k g/m2 [facility] ([facility]) Patient Treatment Plan of Care Planned Activity Planned Date Details Description Data Source (s) pantoprazole 40 MG Delayed Release Oral Tablet 09/05/2020 12:00:00 AM EST [facility] Lidocaine 25 MG/ML / Prilocaine 25 MG/ML Topical Cream 11/25/2019 12:00:00 AM EDT [facility] Lidocaine 25 MG/ML / Prilocaine 25 MG/ML Topical Cream 11/25/2019 12:00:00 AM [facility] Omeprazole 40 MG Delayed Release Oral Capsule [facility]
--- OUTSIDE RECORDS SUMMARY | 2021-05-14 19:35 | CCD | Continuity of Care Document ---
Author Author Laxmi Mayo M.D. Organization Unknown Address [address] [facility] [address] [place] [address] Phone [phone] Care Team Providers Care Auto Roller Name Role Phone [facility] AUTM [phone] Josef Sargent MD AUTM [phone] [facility] AUT[facility] [phone] Desiree Carlisle MD AUTM [phone] Idalia Mayo MD AUTM [phone] Problems Active Problems Provider Date Polyosteoarthritis, unspecified Idalia Mayo M.D. Onse t: 02/21/2020 Malignant neoplasm of intrahepatic gall duct Idalia rubio M.D. Onset: 02/21/2020 Hemorrhage of large intestine with diverticular diseas e of large intestine Idalia Mayo M.D. Onset: 02/21/2020 Diaphragmatic hernia Idalia Mayo M.D. Onset: 02/21/20 20 Hyperlipidemia Idalia Mayo M.D. Onset: 0 Obesity Idalia Mayo M.D. Onset: 0 Social History Type Date Description Comments Sex Unknown ETOH Use Rarely consumes alcohol Tobacco Use Start: Unknown Patient has never smoked Allergies, Adverse Reactions, Alerts Active Allergies Criticality Reaction | Severity Comments Date Augmentin Unable to assess criticality Rash 01/10/2020 Medications Active Medications SIG Qnty Indications Ordering Provide r Date Biotin 5000 5mg Capsules 1 by mouth every day (For Hair) Idalia Mayo M.D. 03/08/20 21 Pantoprazole Sodium 20mg Tablets D R 1 by mouth every day qd 30tabs Idalia Mayo M.D. 03/08 Lidocaine-Prilocaine 2.5-2.5% Cream Unknown Vitamin B 12 500mcg Tablets 1 by mouth every day Unknown Colace 2-In-1 8.6-50mg Tablets 1 by mouth every day After Treatment 2-3D Idalia Mayo M.D. Ondansetron 4mg Tablets Dispers one odt every 6 hours as needed for nausea Unknown Immunizations CPT Code Status Date Vaccine Lot # [id number] Given 01/10/2020 Pneumovax 23 [id number] Vital Signs Date Vital Result Comment 03/08/2021 10:31am BP Systolic 118 mmHg RT Arm BP Diastolic 74 mmHg RT Arm Heart Rate 80 /min Height 62.25 inches 5'2.25" Weight 170.00 lb BMI (Body Mass Index) 30.8 kg/m2 07/18/2020 2:33pm BP Systolic 128 mmHg BP Diastolic 68 mmHg Heart Rate 91 /min Height 62.25 inches 5'2.25" Weight 170.00 lb O2 % BldC Oximetry 96 % BMI (Body Mass Index) 30.8 kg/m2 Results Description No Information Available Procedures Date Code Description Status 02/01/2020 [id number] Mammogram Completed 10/10/2014 [id number] Mammogram Completed Medical Devices Description No Information Available Encounters Description No Information Available Assessments Description No Information Available Plan of Treatment 07/18/2020 - Idalia Mayo M.D.* 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 Health Maintenance. Mammogram obtained and reviewed. She is scheduled for colonoscopy with Dr. Lord in August. She will get approval from her Oncologist. We have also discussed appropriateness of vaccines including COVID vaccine which she would like to hold off. Medicare Wellness paperwork is reviewed including the check list, concerns about hearing and vision from Chemotherapy as well as interventions for the constipation. CAGE, PHQ9, Cognitive screen and [employer] Preventative wellness reviewed. She would like to hold off on any further vaccines. She is scheduled for colonoscopy, she is up to date with mammogram. She would like to hold off on bone density at this point. Healthy diet, exercise discussed. Functional Status Description No Information Available Mental Status Description No Information Available Referrals Description No Information Available
[2021-05-14] MEDS ORDERED: PANT20TA6 (21:07)
[2021-05-14 21:15] LABS: HEMATOCRIT 34.9 % (36.0-47.0); HEMOGLOBIN 11.5 g/dl (12.0-15.5); MEAN CORPUSCULAR HEMOGLOBIN 32.8 pg (27.0-33.0); MEAN CORPUSCULAR VOLUME 99.4 fl (80.0-96.0); RED BLOOD COUNT 3.51 10^6/uL (4.00-5.40); WHITE BLOOD COUNT 10.2 10^3/uL (4.0-10.0)
[2021-05-14 21:25] LABS: INR 1.14; PARTIAL THROMBOPLASTIN TIME 25.5 SECONDS (25.9-37.0)
[2021-05-14 21:44] LABS: BLOOD UREA NITROGEN 14 MG/DL (7-18); CALCIUM LEVEL 8.9 MG/DL (8.8-10.2); CARBON DIOXIDE LEVEL 25 MEQ/L (21-32); CHLORIDE LEVEL 107 MEQ/L (98-107); CHOLESTEROL LEVEL 152 MG/DL (<200); CREATININE FOR GFR 0.78 MG/DL (0.55-1.30); GLOMERULAR FILTRATION RATE > 60.0 (>39); GLUCOSE, FASTING 143 MG/DL (70-100); HDL CHOLESTEROL 38 MG/DL (>40); LDL CHOLESTEROL 95 MG/DL (<100); NON-HDL-C 114 MG/DL; POTASSIUM SERUM 3.4 MEQ/L (3.5-5.1); SODIUM LEVEL 140 MEQ/L (136-145); TRIGLYCERIDES LEVEL 96 MG/DL (<150)
[2021-05-14 21:45] LABS: CK-MB VALUE MASS < 1.0 NG/ML (<3.6); CPK CREATINE PHOSPHOKINASE 15 U/L (26-192); MB/CK RELATIVE INDEX 6.67 (< OR =4); TROPONIN I < 0.02 NG/ML (< 0.10)
[2021-05-14 21:49] LABS: PLATELET COUNT, AUTOMATED 68 10^3/uL (150-450)
[2021-05-14] MEDS ORDERED: RIVAROXABAN 15 MG TAB (XARELTO) PO ONE (22:05)
--- OUTSIDE RECORDS SUMMARY | 2021-05-14 22:17 | CCD ---
Author Author [facility] Organization [facility] Address Unknown Phone Unavailable Care Team Providers Care Dialysis Technician Name Role Phone El Dika, Imane Unavailable [...] J PATRICIO MD Unavailable Unavailable DAVID, J PATIRCIO MD Unavailable Unavailable DAVID, J PATRICIO MD [...] PATRICIO MD Unavailable Unavailable Fons, M Estefania PRESALES SENIOR SPECIALIST Unavailable Unavailable Fons, M Estefania PRESALES SENIOR SPECIALIST Unavailable Unavailable Fons, M Estefania PRESALES SENIOR SPECIALIST Unavailable Unavailable Fons, M Estefania PRESALES SENIOR SPECIALIST Unavailable Unavailable Fons, M Estefania PRESALES SENIOR SPECIALIST Unavailable Unavailable Fons, M Estefania PRESALES SENIOR SPECIALIST Unavailable Unavailable Fons, M Estefania PRESALES SENIOR SPECIALIST Unavailable Unavailable Fons, M Estefania PRESALES SENIOR SPECIALIST Unavailable Unavailable Fons, M Estefania PRESALES SENIOR SPECIALIST Unavailable Unavailable Fons, M Estefania PRESALES SENIOR SPECIALIST Unavailable Unavailable Fons, M Estefania PRESALES SENIOR SPECIALIST Unavailable Unavailable Fons, M Estefania PRESALES SENIOR SPECIALIST Unavailable Unavailable Fons, M Estefania PRESALES SENIOR SPECIALIST Unavailable Unavailable Fons, M Estefania PRESALES SENIOR SPECIALIST Unavailable Unavailable Fons, M Estefania PRESALES SENIOR SPECIALIST Unavailable Unavailable Fons, M Estefania PRESALES SENIOR SPECIALIST Unavailable Unavailable Fons, M Estefania PRESALES SENIOR SPECIALIST Unavailable Unavailable Fons, M Estefania PRESALES SENIOR SPECIALIST Unavailable Unavailable Fons, M Estefania PRESALES SENIOR SPECIALIST Unavailable Unavailable Fons, M Estefania PRESALES SENIOR SPECIALIST Unavailable Unavailable Fons, M Estefania PRESALES SENIOR SPECIALIST Unavailable Unavailable Fons, M Estefania PRESALES SENIOR SPECIALIST Unavailable Unavailable Fons, M Estefania PRESALES SENIOR SPECIALIST Unavailable Unavailable Fons, M Estefania PRESALES SENIOR SPECIALIST Unavailable Unavailable Fons, M Estefania PRESALES SENIOR SPECIALIST Unavailable Unavailable Fons, M Estefania PRESALES SENIOR SPECIALIST Unavailable Unavailable Fons, M Estefania PRESALES SENIOR SPECIALIST Unavailable Unavailable Fons, M Estefania PRESALES SENIOR SPECIALIST Unavailable Unavailable Fons, M Estefania PRESALES SENIOR SPECIALIST Unavailable Unavailable Fons, M Estefania PRESALES SENIOR SPECIALIST Unavailable Unavailable Fons, M Estefania PRESALES SENIOR SPECIALIST Unavailable Unavailable Fons, M Estefania PRESALES SENIOR SPECIALIST Unavailable Unavailable Fons, M Estefania PRESALES SENIOR SPECIALIST Unavailable Unavailable Fons, M Estefania PRESALES SENIOR SPECIALIST Unavailable Unavailable Fons, M Etsefania PRESALES SENIOR SPECIALIST Unavailable Unavailable Fons, M Estefania PRESALES SENIOR SPECIALIST Unavailable Unavailable Fons, M Estefania PRESALES SENIOR SPECIALIST Unavailable Unavailable Fons, M Estefania PRESALES SENIOR SPECIALIST Unavailable Unavailable Fons, M Estefania PRESALES SENIOR SPECIALIST Unavailable Unavailable Fons, M Estefania PRESALES SENIOR SPECIALIST Unavailable Unavailable Fons, M Estefania PRESALES SENIOR SPECIALIST Unavailable Unavailable Fons, M Estefania PRESALES SENIOR SPECIALIST Unavailable Unavailable Fons, M Estefania PRESALES SENIOR SPECIALIST Unavailable Unavailable Fons, M Estefania PRESALES SENIOR SPECIALIST Unavailable Unavailable Fons, M Estefania PRESALES SENIOR SPECIALIST Unavailable Unavailable Fons, M Estefania PRESALES SENIOR SPECIALIST Unavailable Unavailable Fons, M Estefania PRESALES SENIOR SPECIALIST Unavailable Unavailable Fons, M Estefania PRESALES SENIOR SPECIALIST Unavailable Unavailable Fons, M Estefania PRESALES SENIOR SPECIALIST Unavailable Unavailable Fons, M Estefania PRESALES SENIOR SPECIALIST Unavailable Unavailable Fons, M Estefania PRESALES SENIOR SPECIALIST Unavailable Unavailable Fons, M Estefania PRESALES SENIOR SPECIALIST Unavailable Unavailable Fons, M Estefania PRESALES SENIOR SPECIALIST Unavailable Unavailable Ayad, Darius DO Unavailable Unavailable [...] is protected by Article 27-F of the [facility] Public Health law. If you continue you may have access to information: Regarding HIV / AIDS; Provided by facilities licensed or operated by the [facility] Office of Mental Health; or Provided by the [facility] Office for People With Developmental Disabilities. If such information is present, then the following [facility] mandated warning applies: This information has been [...] law may result in a fine or mcfp sentence or both. A general authorization for the release of medical or other information is NOT sufficient authorization for further disc losure. Allergies and Adverse Reactions Type Description Substance Reaction Status Data Source(s ) Drug allergy morphine morphine Hallucinations, Nausea [facility] Drug allergy Augmentin Augmentin Pruritic rash [facility] Family History Family Member Name Family Member Gender Family Member Status Date o f Status Description Data Source(s) Unknown Unknown Problem MEDENT ([facility] mother Unknown Female Problem MEDENT ([facility]) Unknown Female Problem [facility] ([facility] Unknown Female Problem [facility] ([facility]) Encounters Encounter Providers Location Date Indications Data Source(s ) Outpatient Attender: PATRICIO HERNANDEZ MDReferrer: Colleen Del Angel [id number] 05/10/2021 01:06:52 PM EST Hematology On [facility] Outpatient Attender: PATRICIO HERNANDEZ MDReferrer: Colleen Del [...] Colleen villa Iftikhar Del Angel _[id number] 04/23/2021 12:44:33 PM EDT Hematology On [...] DAVID MDReferrer: Colleen villa Iftikhar MOURA_[id number] 02/20/2021 05:56:11 PM EDT [facility] Outpatient Attender: PATRICIO DAVID MDReferrer: Colleen villa Iftikhar MOURA_[id number] 02/20/2021 05:56:01 PM EDT [facility] Outpatient Attender: PATRICIO HERNANDEZ MD 02/15/2021 10:10:00 AM EDT [facility] Outpatient Attender: PATRICIO HERNANDEZ MD 02/15/2021 10:10:00 AM EDT [facility] Outpatient Attender: PATRICIO DAVID MDReferrer: Colleen ne Iftikhar Del Angel _[id number] 02/12/2021 12:05:33 PM EDT [facility] Outpatient Attender: PATRICIO DAVID MDReferrer: Colleen ne Iftikhar Del Angel [id number] 01/30/2021 06:14:54 PM EDT [facility] Outpatient Attender: PATRICIO DAVID MDReferrer: Colleen villa Iftikhar Del Angel [id number] 01/29/2021 01:27:39 PM EDT [facility] Outpatient Attender: PATRICIO DAVID MDReferrer: Colleen ne Iftikhar Del Angel _[id number] 01/29/2021 01:27:28 PM EDT [facility] Attender: PATRICIO DAVID MDReferrer: Colleen villa Iftikhar Del Angel _[id number] 01/25/2021 03:00:22 PM EDT [facility] Outpatient Attender: PATRICIO ZHOUZO MDReferrer: Colleen [...] DAVID MDReferrer: Colleen villa Iftikhar De lAngel [id number] 01/24/2021 07:51:28 PM EDT Hematology On [...] Estefania PAEZ SJP.K[facility]ORE-SJP.[facility] 09/21/2020 12:00:00 AM EDT [facility] Outpatient Attender: PATRICIO DAVID MDReferrer: Colleen ne [...] AM EST [facility] Outpatient Attender: PATRICIO HERNANDEZ MD 08/14/2020 02:11:00 PM EST [facility] Outpatient Attender: PATRICIO HERNANDEZ MD 08/14/2020 02:11:00 PM EST [facility] Outpatient Attender: PATRICIO ZHOUZO MDReferrer: Colleen ne Iftikhar Mer _[id number] 08/07/2020 08:19:56 AM EST [facility] Outpatient Attender: PATRICIO ZHOUZO MDReferrer: Colleen ne Iftikhar Siobhanhugo MOURA_[id number] 08/02/2020 04:43:09 AM EST [facility] Outpatient Attender: PATRICIO ZHOUZO MDReferrer: Colleen ne Iftikhar Del Angel _[id number] 07/24/2020 01:30:04 PM EST [facility] Outpatient Attender: PATRICIO DAVID MDReferrer: Colleen ne Iftikhar Del Angel _[id number] 07/21/2020 07:10:52 AM EST [facility] Outpatient Attender: Idalia Martinez 01:30:00 PM EST MEDENT ([facility] ) Outpatient Attender: PATRICIO DAVID MDReferrer: Colleen ne Iftikhar Mccannhugo _[id number] 07/17/2020 01:57:31 PM EST [facility] Outpatient Attender: PATRICIO DAVID MDReferrer: Colleen ne Iftikhar Del Angel [id number] 07/17/2020 01:39:25 PM EST [facility] Outpatient Attender: PATRICIO DAVID MDReferrer: Colleen ne Iftikhar Mer [id number] 07/17/2020 12:41:52 PM EST [facility] Outpatient Attender: PATRICIO DAVID MDReferrer: Colleen [...] Attender: Darius Lion DO 04/04/2020 12:00:00 AM [facility] Outpatient Attender: Darius Lion DO 03/28/2020 12:00:00 AM [facility] Immunizations Vaccine Date Status Description Data Source(s) COVID-19 VACCINE Pfizer 10/12/2020 12:00:00 AM EDT completed [facility] Vaccine Series Complete: YESThis Data wa s Submitted to [facility] Via Employee Benefit Plans. COVID-19 VACCINE [facility] 09/21/2020 12:00:00 AM EDT completed [facility] Vaccine Series Complete: NOThis Data was Submitted to [facility] Via Employee Benefit Plans. Medications Medication Brand Name Start Date Product Form Dose Route Admi nistrative Instructions Pharmacy Instructions Status Indications Reaction Description Data Source(s) pantoprazole 20 MG Delayed Release Oral Tablet Pantoprazole Sodium 03/08/2021 12:00:00 AM EDT ORAL active M EDENT ([facility]) Biotin 5 MG Oral Capsule Biotin 5000 03/08/2021 12:00:00 AM EDT ORAL active MEDENT ([facility]) Lidocaine 25 MG/ML / Prilocaine 25 [...] active Take 40 mg by mouth daily [facility] 10 mg 05/24/2020 12:00:00 AM EST tablet [...] MOUTH EVERY 8 HOURS NEEDED SOLD: 05/24/2020 [facility] pantoprazole 40 MG Delayed Release Oral Tablet PANTOPRAZOLE SODIUM 05/02/2020 12:00:00 AM EST tablet,delayed release (DR/EC) 30 T BASILIA ONE TABLET BY MOUTH EVERY DAY TAKE ONE TABLET BY MOUTH EVERY DAY SOLD: 07/24/2020 [facility] pantoprazole 40 MG Delayed Release Oral Tablet PANTOPRAZOLE SODIUM 05/02/2020 12:00:00 AM EST tablet,delayed release (DR/EC) 30 T BASILIA ONE TABLET BY MOUTH EVERY DAY TAKE ONE TABLET BY MOUTH EVERY DAY SOLD: 05/09/2020 [facility] pantoprazole 40 MG Delayed Release Oral Tablet PANTOPRAZOLE SODIUM 05/02/2020 12:00:00 AM EST tablet,delayed release (DR/EC) 30 T BASILIA ONE TABLET BY MOUTH EVERY DAY TAKE ONE TABLET BY MOUTH EVERY DAY SOLD: 09/06/2020 [employer] [facility] pantoprazole 40 MG Delayed Release Oral Tablet PANTOPRAZOLE SODIUM 05/02/2020 12:00:00 AM EST tablet,delayed release (DR/EC) 30 T BASILIA ONE TABLET BY MOUTH EVERY DAY TAKE ONE TABLET BY MOUTH EVERY DAY SOLD: 06/15/2020 [employer] 3 ML heparin sodium, porcine 100 UNT/ML Prefilled Syringe heparin flush (porcine) 100 UNIT/ML injection 500 Units heparin flush (porcine) 100 UNIT/ML injection 500 Units 02/14/2020 10:55:06 AM EDT 500 U Intracatheter active 500 Units, Intracatheter, IN N, Line Care, Starting Fri02/14/20 at 1055, For 30 days [facility] Medication administered onsite Lidocaine 25 MG/ML / Prilocaine 25 MG/ML Topical Cream Lidocaine-Prilocaine 2.5- 2.5 % External Cream Lidocaine-Prilocaine 2.5-2.5 % External Cream 11/25/19 12:00:00 AM EDT active To apply to port site prior to accessing [facility] Lidocaine 25 MG/ML / Prilocaine 25 MG/ML Topical Cream lidocaine-prilocaine (EMLA) cream lidocaine-prilocaine (EMLA) cream 11/25/2019 12:00:00 AM EDT active To apply to port site [email or web address] or to accessing [facility] Omeprazole 40 MG Delayed Release Oral Ca psule omeprazole (PRILOSEC) 40 MG capsule omeprazole (PRILOSEC) 40 MG capsule 40 mg Oral aborted Take 40 mg by mouth as needed [facility] Insurance Providers Payer name Policy type / Coverage type Policy ID Covered libertarian ID Covered libertarian's relationship to palacio Policy Palacio Plan Information MEDICARE [id number] SP [id number] [id number] [place] Plan [facility] Commercial [id number] Self [place] Plan [facility] Part B [id number] Self [id number] EX[place] BCBS [id number] xxxxxxxxxxxx [id number] [facility] [id number] SP [id number] EXCELLUS BCBS [id number] Ana Maria YLS [id number] [facility] [id number] SP [id number] MEDICARE A [id number] Self [id number] A MEDICARE [id number] xxxxxxxxxxx [id number] MEDICARE [id number] Ana Maria [id number] T32 MEDICARE A [id number] Self [id number] T32 Medicare Primary [id number] T32 MEDICARE [id number] Ana Maria [id number] A EMPIRE PLAN [facility] U [id number] Self [id number] BCBS EMPIRE [place] DIV [id number] SP [id number] [place] Plan Secondary [id number] Medicare Natl Gov't Servi Medicare Primary [id number] Self Medicare Medicare Primary [id number] Self Medicare [facility] Medicare Primary [id number] Self [place] [facility] Health Maintenance Organization (HMO) [id number] Family Dependent EMPIRE (STATE EMP) P [id number] S [id number] E[place]IRE (STATE EMP) P [id number] S [id number] [facility] [id number] [id number] BCBS EMPIRE [place] DIV [id number] HU2 [id number] SELF PAY 2 UNAVAILABLE 1 UNAVAILA BLE [place] A[facility]HETIC 5 UNAVAILABLE 1 UNAVAILABLE [id number] MEDICARE C [id number] S [id number] [id number] [facility] [id number] S [id number] MEDICARE [id number] SP [id number] T32 BS FRESNO [place] DIV [id number] SP [id number] EXCELLUS BLUE CROSS BLUE SHIELD HEA [id number] S [id number] MEDICARE MCA [id number] S [id number] AT32 MEDICARE MCA [id number] S [id number] MEDICARE [id number] SP [id number] A [facility] Part B [id number] Self [id number] Medicare Natl Gov't Servi Medicare Primary [id number] Self [id number] [facility] [id number] Self [id number] Medicare Natl Gov't Servi Medicare Primary [id number] Self [id number] MEDICARE C [id number] S [id number] A Medicare Medicare Primary [id number] Self [id number] [facility] Part B [id number] Self Problems, Conditions, and Diagnoses Code Display Name Description Problem Type Effective Dates Data Source(s) I31.3 Pericardial effusion Pericardial effusion [id number] 09/21/2020 12:00:00 AM EDT [facility] Surgeries/Procedures Procedure Description Date Indications Data Source(s) ECG ROUTINE ECG W/LEAST 12 LDS W/I&R <td>POCT AMB EKG</td><td>Routine</td><td>09/21/2020 12:22 PM EDT</td><td> Palpitations</td><td> </td> 09/21/2020 04:22:00 PM EDT Palpitations [facility] Palpitations Results ID Date Data Source [id number] 04/16/2021 12:25:10 PM EDT [facility] Name Value Range Interpretation Code Description Data [place] rce(s) Supporting Document(s) *No Show Note MAGED v1 [facility] SNWGCq2qEbZPWrOih0vtDAdsZKMct3YrVHz9SX1TT9VxFThebeGhXBZxwoVrC9HbBJIjGNLXCXkaTPFr TX1 [file] MDAwMDAxODczNyAwMDAwMCBuDQowMDAwMDAyMzEyID ArXUEuYK6GCaDyNIPlIQH7DLUvRILhOGObzf8IPJLyDZSuNvF2BxTaRTQlGTTwDOycFVVfDFHfQcX8ZI JzACLqAE6JDpUgWIRcPNn4ZlzjTSKuYQUcct4IRAQjOOXhTZrpNNOrWRWtYFZuZAfjEMDvJLXuYXpxDA GiXVZbJJ2UOrVqAHMyKEG7NscnOPZiTLQrto8PROIl YBWrQGi0UNLqNCRpGEPiGIvcOZClHFU1QJlwSSTrKJPgDE4TNjYoJHZsAGhjYlanNESsWXElbz2TVDSj HUPtHVv2BOZmEMXqSFMmVEgtYSQfXFGyLAL2ESQgIMJzAW1JJcBlLGQxEmX7BXLjOOAjPKTlrb7JHQDu RLJoZSv6ZtOmHUPlJWYbQCvhETEoCIEfWRn1FTYxFA YgVT1SUbZsXSIiLtF8VZZmUHGfCVSker2TRBRwBHOzOsvgAdPtAKZuUEQdXKfxHKUlYLQ3OQC3EMZxPU QfFH7ZWpWfPCqzNDQLWze5KZitMG2bycVpNnUfTBJBJs0Tk808QSClXWCNFBcaU1j7CIStHG0CKl7PBx 9Uw7LwnxT1qpYeDAy4SDDgIe5ELSNGK0PHYg== ID Date Data Source [id number] 03/20/2021 03:02:43 PM EDT [facility] Name Value Range Interpretation Code Description Data [place] rce(s) Supporting Document(s) *Follow Up Visit MAGED v1 [facility] QFMZZm1uPjWNLeThv1weLXmyBVJaq2SxNIc6KR7BX2YpY4NLg4CbAX9Ix9HSy52xAMreJHQmk6Pbee5a kZW [file] Electrical Wiring Lineman+rVzLeiz2ebw8YrJ66tcyDLmV6X/B74/ZACH+IjYh12tcm/63mXv0oru5mw//lojwz9N4e+G5ObRx6 [file] pi8Dxqtn4mKzJ83oqZfPDV667nmPY0ok4/fHPp9TwvK542++aH/pvUQhD2hnCr33UuT96crgZqLpa+NETWORK CABLER [file] xJPxPXgFfghvxI/isaiah/XXUXWFEaTp52DPe4qzU9bpsr ysIA+XonS0oVhVIxXQfMT07tOdTYTbal6mfyNvbVdcSTlgX8tzvGbLfU5ny0qP4Pyza33UvMjhlFVqKS Vzq5jbWkd+fwN/K/w9zb/Ct/Dp19o6kvFFBxEABAwCWC4LNnjLzcj8EYtkjbq+W5pNO6W+5CxXQmoSQ6 WnvjjlRdoGe0MMCucXFlMBhpeEcPb9W4PsDzaWgr4Q 55kLF22nMyKiLPL/HfgIKsV/QEsFwoFVpKfQHvwJOUV/I50Ne7C78oQy8V55ZwLDyjF8KbyySyrlN4AK MKBLYXFP1Gi2ThWc2P5IgbHClOuphzbDi6cUeTnryu3nRl6SYdQd8g1QrpM6WP2Y5DE4D11QegF/4w+X o0/QN/hX1LSbOptMyCzMPJ5Wt+Md5YSKg24S69cZXG oAVuZ+hMy4bLs5SuReusBQarYagmgmyO6JBHkzPcxPF6Mz2Jw6TC2FXDRUDFjJbUd8us1ZS8l1Gq2WBE PCaj3OP/1JO80TcOkFUUnfQEljaX8iCw3apkbkNWviWB1H481nvdT49qrbe3Zd2a4DmGWkdCtOS9wxxi v4IwedYX/hNaCH/dD/1U+btUqNg4iTh5Jr6RZcT08l x+/g9/Ev8+5MKBNpo1NwyIrBGo2QgMOb4L93Cr3MYUHFOeRxQMT4K/V6Kr5YzflxkOeUjTziq5nla5ao S6C6CGSc0L9y1YxkzUhxeZ5seK0LPbRUHkmOpuR+BM+aAs6Jw7dqOWV13h6FOzycrh22StRqkr0UJlYh Fv8iY2ygGqn4RenLrG85+iXMjpADRh2F+hmNQZOgha 3pJC3HOazZweKl2pY+PZnHgYduxZNoZ2TgBNhsSyRurt5ODBWYRwfavGfehbKmN7ouyUV5LvZ7dYA2AC OdtVX5XmAP7aIYfa6lB5liw16mCNYlo5zp2/Vb0B/V8wKZpn4U+7C11M85Ppl3hnYRtv41YK15p2eeU6 7VVImjGbqdzHUar8vtt02CLxtEe8CYWaRGFj/ [file] alct/9wC/YS1j3ryRbT437L3H0VU6AUU/gso9ppOX48pkikJv7nQ/inur/T+FBR+Latter-day/8rvQjefSGKBB [file] 0K ID Date Data Source [id number] 03/20/2021 03:00:00 PM EDT Hematology On [facility] CT CHEST, ABDOMEN AND PELVIS WITH CONTR [...] and central bronchi are patent. A right-sided Gzdtdj-q-Chlj is noted. Subsegmental atelectasis is noted at [...] measuring 1.3 cm. Professional interpretation performed at [facility] . Name Value Range Interpretation Code Description Data [place] rce(s) Supporting Document(s) ID Date Data Source [id number] 03/20/2021 03:00:00 PM EDT [facility] CT CHEST, ABDOMEN AND PELVIS WITH [...] and central bronchi are patent. A right-sided Pivrpq-g-Ofix is noted. Subsegmental atelectasis is noted at [...] measuring 1.3 cm. Professional interpretation performed at [facility] . Name Value Range Interpretation Code Description Data [place] rce(s) Supporting Document(s) ID Date Data Source [id number] 01/17/2021 02:01:14 PM EDT [facility] Name Value Range Interpretation Code Description Data [place] rce(s) Supporting Document(s) *Follow Up Visit MAGED v1 [facility] SYZRWf2sGfLRQyAzg5dpXFgsASWon2VtDXb3PC2EQ5FxZ8IREFfqcVOgM01oTLNiwYQlfq7VC2P4zKYl gL0 [file] Hammer Repairer+mbBS40XAAbCX+xnrveIT50XO717wddo0VJjrJLnPAwko0DiUOwHmF6dQBisOTPhetyuYPwpwuXXyw [file] uANhcKdwKYPURrRbKWE9Sl1PWJKOA1DQOv== ID Date Data Source [id number] 01/17/2021 12:59:00 PM EDT [facility] CT OF THE ABDOMEN AND PELVIS [...] rce(s) Supporting Document(s) ID Date Data Source [id number] 01/17/2021 12:48:00 PM EDT [facility] WITH CONTRAST CLINICAL INDICAT ION: [...] PM EDT [facility] Name Value Range Interpretation Code Description Data [place] rce(s) Supporting Document(s) *Follow Up Visit MAGED v1 [facility] NVCGJy1pFgMPDsQkm5pbLDenHRJif8VbPQo0OV9SU2X3lIGsD6TkuXUqp3aIIx7QVMalXKX0x4E0HO3Q 2LT [file] p5PoK7jSD01iDt2/HPPynx+l/gt55RehE4gcxsJ2+ScC7O6uke+PP04+NETWORK CABLER/6obDFgAC7fzOa2oZN9jqN [file] director of placement+5kzv9rxddhsW8CfjXLn100n8ZpqUkUFWlABSQfd [file] ID Date Data Source [id number] 10/16/2020 01:45:00 PM EDT Hematology On cology [...] progressive metastatic disease. Professional interpretation performed at [facility] . Name Value Range Interpretation Code Description Data [place] rce(s) Supporting Document(s) ID Date Data Source [id number] 10/16/2020 01:45:00 PM EDT Hematology On cology [...] progressive metastatic disease. Professional interpretation performed at [facility] . Name Value Range Interpretation Code Description Data [place] rce(s) Supporting Document(s) ID Date Data Source [id number] 07/10/2020 02:08:14 PM EST [facility] Name Value Range Interpretation Code Description Data [place] rce(s) Supporting Document(s) *Follow Up Visit MAGED v1 [facility] LIIRVg2hBkXCBlAat2hdFHesLGGcv3NnLFj3VP9HQ6Mpee6Ri0WuAIMdMUSQLKuoY7M3vFG7CD96TX04 uMS [file] HPrKaBE+n25E/LfBr3FHiEkQf0MLgk9Ivnd4Sxh4oUAm9OnxFt/vR/l5543TqKFnjdCWu99+Wj0Lz/EDITOR SCHOOL PHOTOGRAPH [file] AwMDUwMCAwMDAwMCBuDQowMDAwMDAzNDgwIDAwMDAw ZP0NOzJrXQSeBXU7XeguYDVaUDZodf3ZYBPyERAnZPU6HqSrMPOrIMIdLFvhOYOjVLFvUHS7RAVeJXZj YY1IRsWyHCFfUDCkBJaaGWLjQZNwxg1TJUXpNFF3VpT8TeUeNOPpHDXyHLskZOYeZDL0EvQ2REMeAJLy GE8DFnOzGLPgNNQ8XjymUPDlFOHott6YAYZaBNLgJh BeSTSeZCYiPUFsOMiiXNThVAYsApReMXQcBXUrTH5NBdWdKJWeQiHbUqmlUNVbLYIkqe5YPYRfLPA8Bb E5NTUtASJtDWZtGFmmJOFnEIZiRFM2NVBaLMIdIF5JXnXzPINiKNJkHzHwONUnWAQipa2STEEyNQEgSt I8TGSqCFNkANQhJRhcFOYdXRO7JFBsOXIeVLEcGT8B XnIkYREwDSVhCZGaBLKqQIMeef4BSQPhSKF9HIAkENIhXCHbAHXfRZugOIWtAWG4MFZrRGIoIYKhYL8F LsGeXZOrLHReZmTeJQBwKZDiig4HMEVhKSS4HoP4KzMvHFLuMMZxXRuzFGVcOLW1SiAvJVKfJYEvUH5L YbAmRSWlMEA8XnemPFYmAQEaob9TAYNjYVH1LUHrTw QxWRKkNBCnMZuuIVIePAQ1RzamPIChJUAyAU4FMoDlXPKlYeF2XaveJWOuJCQtwx1BKWPaIVO8AvUaUf ZrECZyZDOuMFurSBWkDAP9JLBsAMNdRTDbIL0UHtKhFYViGyH5ZHLnALGvAYMtya7QXONgGLE6AQAsQY NmKIJxNOWpXWckSOGlMJS8CjziVORkJJDpDT2LSmVf KSGvNfu1ZWhcTZZuFGDtva0VAJDcMAG8EksrPbIeBLIfBYUiSYrtBWMkVQs7JfT7BHKaJTHyUY8JPsHx XDiwOQEMSpn8JHqvCZ8qajUjBbEaSYCAGi8Ab986DRGvOBVTFKstQ4n6RVE2OF0SJo1YAn7Gz7UybbQ2 epDiWYhiNkKeZuIIKmXeLB6TVIl= ID Date Data Source [id number] 07/06/2020 04:44:00 PM EST [facility] CT OF THE ABDOMEN AND PELVIS [...] Name Value Range Interpretation Code Description Data [facility] Supporting Document(s) ID Date Data Source [id number] 06/19/2020 07:05:28 PM EST [facility] [place] [facility] SPECIMEN DESCRIPTION STOOLSPECIAL REQUESTS NONERESULT NEGATIVE FOR ENTERIC PATHOGENS BY PCR.NOTE: THIS MOLECULAR ASSAY DETECTS THE FOLLOWING ENTERIC PATHOGENS:CAMPYLOBACTER GROUP (COLI, JEJUNI, ANAHI), SALMONELLA SPECIES,SHIGELLA SPECIES (DYSENTERIAE, BOYDII, SONNEI, FLEXNERI), VIBRIOGROUP (CHOLERAE, PARAHAEMOLYTICUS), YERSINIA ENTEROCOLITICA, SHIGATOXIN 1, SHIGA TOXIN 2, NOROVIRUS GROUP 1 AND 2, ROTAVIRUS A. REPORT STATUS FINAL 06/20/2020 Name Value Range Interpretation Code Description Data [facility] Center(s) Supporting Document(s) SPECIMEN DESCRIPTION Laborator y [facility] COMMENT Laboratory [place] [facility] ID Date Data Source [id number] 06/20/2020 10:27:13 AM EST Laboratory [facility] - C[facility] SPECIMEN DESCRIPTION STOOLSPECIAL REQUESTS [...] PM EST [facility] Name Value Range Interpretation Code Description Data [place] rce(s) Supporting Document(s) AP - Telehealth Visit Note MAGED v1 [facility] RKZYFy8jWtMRQaPxf0isHAwkHSNxs2ClOAl2FI9SU4H7fYOsA2BhqTNbr0rGXh3ZcSVnqGOZmlVpzmMt KL1 [file] ZA4RmwQ9PeXifN0suEUCvUkwt8cR88uB4I8z+c TwnXvaFhNae5an9uxaWonLuIvnWSq9uoP1IC3FZkQuiUPFm7phoWj0Rao247Ci+O0RpeuZyCvC+qWurX 0gcNgilUYw2YTXpEK3Tad67UpdVu/LsBIO+tv4F+N28c+YP892dpa2LhxRd0V+tIQ4+ztFcSIgIcAgtG rV5yGelic0hO3XnlbP68Gx14Hd341oxkxymZzRE5y2 zED00Ohep7U6YZiN0PNTrJTHJ9DuLBFSNEDKFrmN14Xca5BzPQxNz5acpg0Oa3lmh7hI7iBqFXq3Wp0v 7VSZFnoF0CN86q7MwNPR+QJuiZ1r8dc5i+KIzlLI8QdRPZ19XNpGxPwWVRfk6DScLnCqtVL5vnRFzy8A fjvWfA6+Xg3JckOFg1td4wf7P2S0l3nJMcd/5WUAlo pNglH3gNdYxPwef8f+Prakash/FCP6Z051riiKgOoQGS4RXGZV30JZidXrlTJdTFYLPKxKjWYUsBL12mL8L+ [file] wIB0DtikPW0LT6dyKRAQwxglyJ/k+XS+feather separator/Nn+FpI8/mzq6XeGvSF6RNCpBpbttlEyi1DQsTylQI+2TO [file] AjRD1/Hk4JrL6ylsgw6O/director of placement/K8wo4K1olPVm7RrkiB [file] +LIZjVmG9zaKUQp1o61Aa+s/director of placement/0z3kqM13zboKmYPnbExl9t9e5RY2U3gfcZ0IRx5W6mZTK88x3YEmI [file] MEpLIx4Ti948UHWdVLELWSl+Dg8KBHhjlOSjpZqdEXJQEtB7DfMvVG0DDXOAA3VZXp== ID Date Data Source [id number] 05/15/2020 06:09:00 PM EST [facility] Name Value Range Interpretation Code Description Data [place] rce(s) Supporting Document(s) SARS CORONAVIRUS 2 RNA:PRTHR:PT:NPH:ORD:PROBE.AMP.TAR [facility] This lab was ordered by [facility] and reported by [facility]. ID Date Data Source [id number] 04/04/2020 05:58:00 AM EDT [facility] Name Value Range Interpretation Code Description Data [place] rce(s) Supporting Document(s) SARS CORONAVIRUS 2 RNA:PRTHR:PT:NPH:ORD:PROBE.AMP.TAR [facility] This lab was ordered by [facility] and reported by [facility]. ID Date Data Source [id number] 04/03/2020 03:53:00 PM EDT [facility] Name Value Range Interpretation Code Description Data [place] rce(s) Supporting Document(s) SARS CORONAVIRUS 2 RNA:PRTHR:PT:NPH:ORD:PROBE.AMP.TAR [facility] This lab was ordered by [facility] and reported by [facility]. Procedure Social History Code Duration Value Status Description Data Source(s ) Alcohol intake 09/21/2020 12:00:00 AM EDT Yes completed [facility] Smoking 09/21/2020 12:00:00 AM EDT Never smoker completed Never s cindaker [facility] Vital Signs ID Date Data Source UNK Name Value Range Interpretation Code Description Data Source(s) Systolic blood pressure 118 mm[Hg] 118 mm[Hg] M EDENT ([facility]) RT Arm Diastolic blood pressure 74 mm[Hg] 74 mm[Hg] [facility] ([facility]) RT Arm Heart rate 80 /min 80 /min [facility] ([facility]) Body height 62.25 [in_i] 62.25 [in_i] [facility] ([facility]) 5'2.25" Body weight 170.00 [lb_av] 170.00 [lb_av] MEDEN T ([facility]) Body mass index (BMI) [Ratio] 30.8 kg/m2 30.8 k g/m2 [facility] Systolic blood pressure 125 mm[Hg] 125 mm[Hg] [facility] Diastolic blood pressure 85 mm[Hg] 85 mm[Hg] [facility] ([facility]) Body height 62 [in_i] 62 [in_i[facility] 5'2" Body weight 167.25 [lb_av] 167.25 [lb_av] MED[facility] T ([facility]) Body mass index (BMI) [Ratio] 30.6 kg/m2 30.6 k g/m2 [facility] ([facility]) [place] body weight 110 [lb_av] 110 [lb_av] MED[facility] T ([facility]) Body weight 75.865 kg 75.865 kg [facility] ([facility]) Body surface area Derived from formula 1.77 m2 1.77 m2 [facility] ([facility], ) Systolic blood pressure 130 mm[Hg] 130 mm[Hg] [facility] Diastolic blood pressure 86 mm[Hg] 86 mm[Hg] [facility] Heart rate 96 /min 96 /min [facility] Body height 157.5 cm 157.5 cm [facility] Body weight 77.565 kg 77.565 kg [facility] Body mass index (BMI) [Ratio] 31.28 kg/m2 31.28 kg/m2 [facility] Oxygen saturation in Arterial blood by Pulse oximetry 96 % 96 % [facility] Systolic blood pressure 128 mm[Hg] 128 mm[Hg] M EDENT ([facility]) Diastolic blood pressure 68 mm[Hg] 68 mm[Hg] [facility] ([facility]) Heart rate 91 /min 91 /min [facility] ([facility]) Body height 62.25 [in_i] 62.25 [in_i] [facility] ([facility]) 5'2.25" Body weight 170.00 [lb_av] 170.00 [lb_av] MEDEN T ([facility]) Oxygen saturation in Arterial blood by Pulse oximetry 96 % 96 % [facility] ([facility]) Body mass index (BMI) [Ratio] 30.8 kg/m2 30.8 k g/m2 [facility] ([facility]) Patient Treatment Plan of Care Planned Activity Planned Date Details Description Data Source (s) pantoprazole 40 MG Delayed Release Oral Tablet 09/05/2020 12:00:00 AM EST [facility] Lidocaine 25 MG/ML / Prilocaine 25 MG/ML Topical Cream 11/25/2019 12:00:[address] [facility] Lidocaine 25 MG/ML / Prilocaine 25 MG/ML Topical Cream 11/25/2019 12:00:00 AM [facility] Omeprazole 40 MG Delayed Release Oral Capsule [facility]
[2021-05-14 22:21] LABS: LYMPHOCYTES 6 % (16-44); METAMYELOCYTES 2 % (0-0); MONOCYTES 5 % (0-5); NEUTROPHILS 58 % (28-66); PLATELET ESTIMATE DECREASED (NORMAL)
[2021-05-14 22:38] VITALS: BP 143/73
--- NOTE | 2021-05-15 11:21 | ECGEPIP ---
[facility] - ED Test Date: 2021-05-14 Pat Name: ALONDRA GARCIA Department: Room: - Gender: Female Crime Scene Technician: jayme : 1950 Requested By: FLORA PAEZ Order Number: [id number] Reading MD: Todd Roberts Measurements Intervals [place] Rate: 83 P: 31 MT: 164 QRS: -7 QRSD: 72 T: 42 QT: 378 QTc: 444 Interpretive Statements Normal sinus rhythm NONSPECIFIC T WAVE ABNORMALITY(S) SIMILAR TO 07/08/18 Electronically Signed on 05-15-2021 11:20:53 EST by Todd Roberts
== END 2021-05-14 22:39 | disposition home or self-care (01) ==
LOC: M ED 19:27
DX: I26.99 Other pulmonary embolism without acute cor pulmonale (principal); I10 Essential (primary) hypertension; K21.9 Gastro-esophageal reflux disease without esophagitis; K57.90 Diverticulosis of intestine, part unspecified, without perforation or abscess without bleeding; Z90.49 Acquired absence of other specified parts of digestive tract; C22.1 Intrahepatic bile duct carcinoma; Z92.21 Personal history of antineoplastic chemotherapy; Z79.899 Other long term (current) drug therapy; Z88.0 Allergy status to penicillin; Z88.5 Allergy status to narcotic agent

== ENCOUNTER → 2021-11-08 | Outpatient (REF) | payer MEDICARE, BC ==
[~2021-11-08] MED LIST changes: -METR-135 PO; +METR-369 PO; +ONDA-84 PO; -ONDA8TAB10 PO; +PANT20TA6; -PROC10TA4 PO; +PROC10TA5 PO
[2021-11-08 17:17] LABS: RHEUMATOID FACTOR QUANT < 10.0 IU/ML (<15.0); URIC ACID 4.5 MG/DL (2.6-6.0)
[2021-11-11 21:06] LABS: ANTINUCLEAR ANTIBODIES DIRECT Negative (Negative); CYCLIC CITRULLINATED PEPTIDE 5 units (0-19)
== END ==
LOC: M LAB REF 16:12
PROVIDERS: ATTEND Internal Medicine
DX: M15.9 Polyosteoarthritis, unspecified (principal)

== ENCOUNTER → 2021-11-09 | Outpatient (CLI) | payer MEDICARE, BC | LOC: M WUC 14:35 | PROVIDERS: ATTEND Internal Medicine | DX: M25.561 Pain in right knee (principal); M25.562 Pain in left knee; M54.50 Low back pain, unspecified ==

== ENCOUNTER → 2022-02-15 | Outpatient (CLI) | payer MEDICARE, BC | LOC: M WUC 15:14 | PROVIDERS: ATTEND Physician Assistant | DX: R06.02 Shortness of breath (principal); R42 Dizziness and giddiness; M25.512 Pain in left shoulder; J90 Pleural effusion, not elsewhere classified ==

== ENCOUNTER → 2022-02-19 | Outpatient (CLI) | payer MEDICARE, BC ==
[~2022-02-19] MED LIST changes: +LIDOCAINE 1% MDV 20ML VIAL As Ordered ONE
[2022-02-19 08:16] VITALS: BP 141/84
== END ==
LOC: M IRPRO 08:10
PROVIDERS: ATTEND Nurse Practitioner
DX: C22.1 Intrahepatic bile duct carcinoma (principal)

== ENCOUNTER 2022-03-10 19:54 | Emergency (ER) | payer MEDICARE, BC ==
[~2022-03-10] VITALS: Ht 157.5 cm; Wt 72.7 kg
[~2022-03-10 19:54] MED LIST changes: -LIDOCAINE 1% MDV 20ML VIAL As Ordered ONE
[2022-03-10] MEDS ORDERED: XARE20TA PO (20:00)
[2022-03-10] MEDS ORDERED: NITROFURANTOIN (MACROBID) 100 MG CAP PO ONE (23:05)
[2022-03-10] MEDS ORDERED: MACR100C43 PO (23:05)
[2022-03-10 23:18] VITALS: BP 134/90
== END 2022-03-10 23:19 | disposition home or self-care (01) ==
LOC: M ED 19:54
DX: N30.01 Acute cystitis with hematuria (principal); Z85.05 Personal history of malignant neoplasm of liver; Z88.0 Allergy status to penicillin; Z88.2 Allergy status to sulfonamides; Z88.5 Allergy status to narcotic agent

== ENCOUNTER → 2022-03-21 | Outpatient (REF) | payer MEDICARE, BC ==
[~2022-03-21] MED LIST changes: +MACR100C43 PO; +XARE20TA PO
== END ==
LOC: M LAB REF 16:18
PROVIDERS: ATTEND Physician Assistant Medical
DX: N39.0 Urinary tract infection, site not specified (principal)

== ENCOUNTER → 2022-03-22 | Outpatient (REF) | payer MEDICARE, BC | LOC: M LAB REF 11:04 | PROVIDERS: ATTEND Registered Nurse | DX: N76.0 Acute vaginitis (principal) ==

== ENCOUNTER → 2022-05-08 | Outpatient (REF) | payer MEDICARE, OTHER ==
[~2022-05-08] MED LIST changes: +PANT20TA6 PO
== END ==
LOC: M LAB REF 12:30
PROVIDERS: ATTEND Internal Medicine
DX: M81.0 Age-related osteoporosis without current pathological fracture (principal)

== ENCOUNTER → 2022-06-05 | Outpatient (CLI) | payer MEDICARE, BC, OTHER ==
[~2022-06-05] MED LIST changes: +ERGO500029
== END ==
LOC: M WUC 11:59
PROVIDERS: ATTEND Internal Medicine
DX: M25.559 Pain in unspecified hip (principal); M16.11 Unilateral primary osteoarthritis, right hip

== ENCOUNTER → 2022-07-11 | Outpatient (CLI) | payer MEDICARE, BC, OTHER ==
[~2022-07-11] MED LIST changes: +DEXA4TA PO; +GASTROGRAFIN SOLUTION 30ML As Ordered ONE; +ISOVUE-370 76% 100ML VIAL As Ordered ONE
== END ==
LOC: M RAD 11:20
PROVIDERS: ATTEND Internal Medicine Medical Oncology
DX: C22.1 Intrahepatic bile duct carcinoma (principal); J90 Pleural effusion, not elsewhere classified; J98.11 Atelectasis; R16.1 Splenomegaly, not elsewhere classified; C79.89 Secondary malignant neoplasm of other specified sites
CPT/HCPCS: 74177; Q9963; Q9967

== ENCOUNTER → 2022-09-16 | Outpatient (CLI) | payer MEDICARE, BC, OTHER ==
[~2022-09-16] MED LIST changes: +FERR325T3 PO; +FURO20TA2 PO; -GASTROGRAFIN SOLUTION 30ML As Ordered ONE; -ISOVUE-370 76% 100ML VIAL As Ordered ONE; +SLOWTAB2 PO; +VITA100093 PO
== END ==
LOC: M WUC 14:33
PROVIDERS: ATTEND Internal Medicine Medical Oncology
DX: R05.9 Cough, unspecified (principal); R06.00 Dyspnea, unspecified; C22.0 Liver cell carcinoma; J90 Pleural effusion, not elsewhere classified

== ENCOUNTER → 2022-09-18 | Outpatient (CLI) | payer MEDICARE, BC, OTHER | LOC: M LABSMTC 07:32 | PROVIDERS: ATTEND Anesthesiology | DX: Z01.812 Encounter for preprocedural laboratory examination (principal); Z20.822 Contact with and (suspected) exposure to COVID-19 ==

== ENCOUNTER 2022-09-20 11:18 | Day surgery (SDC) | payer MEDICARE, BC, OTHER ==
[~2022-09-20] VITALS: Ht 157.5 cm; Wt 71.1 kg
[2022-09-20 11:43] VITALS: BP 150/80
[2022-09-20] MEDS ORDERED: LIDOCAINE 1% SDV 30ML VIAL As Ordered ONE (12:08)
[2022-09-20 12:24] LABS: BASO % 0.3 % (0.0-1.0); EOS % 0.3 % (0.0-3.0); HEMATOCRIT 30.4 % (36.0-47.0); HEMOGLOBIN 9.2 g/dl (12.0-15.5); LYMPH # 0.4 10^3/uL (1.5-5.0); LYMPH % 10.8 % (24.0-44.0); MEAN CORPUSCULAR HEMOGLOBIN 28.8 pg (27.0-33.0); MEAN CORPUSCULAR HGB CONC 30.3 g/dl (32.0-36.5); MONO # 0.4 10^3/uL (0.0-0.8); MONO % 11.7 % (2.0-8.0); NEUTROPHILS # 2.8 10^3/uL (1.5-8.5); NEUTROPHILS % 76.6 % (36.0-66.0); PLATELET COUNT, AUTOMATED 134 10^3/uL (150-450); WHITE BLOOD COUNT 3.7 10^3/uL (4.0-10.0)
[2022-09-20 12:47] LABS: ALBUMIN 3.1 G/DL (3.2-5.2); ALKALINE PHOSPHATASE 199 U/L (46-116); ALT/SGPT 28 U/L (7.0-40); AST/SGOT 51 U/L (<34); BILIRUBIN,TOTAL 0.6 MG/DL (0.3-1.2); BLOOD UREA NITROGEN 13 MG/DL (9-23); CALCIUM LEVEL 8.9 MG/DL (8.3-10.6); CARBON DIOXIDE LEVEL 26 MMOL/L (20-31); CHLORIDE LEVEL 106 MMOL/L (98-107); GLOMERULAR FILTRATION RATE > 60.0 (>39); GLUCOSE, FASTING 92 MG/DL (74-106); POTASSIUM SERUM 4.2 MMOL/L (3.5-5.1); SODIUM LEVEL 138 MMOL/L (136-145); TOTAL PROTEIN 6.5 G/DL (5.7-8.2)
== END 2022-09-20 12:33 | disposition home or self-care (01) ==
LOC: M OPP 11:18
PROVIDERS: ATTEND Internal Medicine Pulmonary Disease
DX: J90 Pleural effusion, not elsewhere classified (principal); Z53.8 Procedure and treatment not carried out for other reasons

== ENCOUNTER → 2022-09-25 | Outpatient (CLI) | payer MEDICARE, BC, OTHER ==
[~2022-09-25] MED LIST changes: +MAGN500T12 PO
== END ==
LOC: M WUC 09:18
PROVIDERS: ATTEND Internal Medicine Critical Care Medicine
DX: J90 Pleural effusion, not elsewhere classified (principal); J98.11 Atelectasis; I70.0 Atherosclerosis of aorta; Z95.828 Presence of other vascular implants and grafts

== ENCOUNTER → 2022-10-08 | Outpatient (CLI) | payer MEDICARE, BC, OTHER ==
[~2022-10-08] MED LIST changes: +GASTROGRAFIN SOLUTION 30ML As Ordered ONE; +ISOVUE-370 76% 100ML VIAL As Ordered ONE
== END ==
LOC: M RAD 13:20
PROVIDERS: ATTEND Internal Medicine Medical Oncology
DX: R06.00 Dyspnea, unspecified (principal); R05.9 Cough, unspecified; C22.1 Intrahepatic bile duct carcinoma; K44.9 Diaphragmatic hernia without obstruction or gangrene; K57.30 Diverticulosis of large intestine without perforation or abscess without bleeding; M43.16 Spondylolisthesis, lumbar region; R16.1 Splenomegaly, not elsewhere classified; R93.3 Abnormal findings on diagnostic imaging of other parts of digestive tract; R91.8 Other nonspecific abnormal finding of lung field
CPT/HCPCS: 71260; 74177; Q9963; Q9967

== ENCOUNTER → 2022-10-18 | Outpatient (CLI) | payer MEDICARE, BC, OTHER ==
[~2022-10-18] MED LIST changes: +ACETAMINOPHEN 325 MG TAB As Ordered ONE; +ACETAMINOPHEN TAB 650MG DOSE (2X325MG) PO PRN; -GASTROGRAFIN SOLUTION 30ML As Ordered ONE; -ISOVUE-370 76% 100ML VIAL As Ordered ONE
[2022-10-18 12:49] LABS: PH BODY FLUID 7.674 UNITS (NOT ESTABLISHED); SOURCE, BODY FLUID pH PLEURAL
[2022-10-18 12:58] LABS: APPEARANCE, BODY FLUID HAZY (CLEAR); PLEURAL FL COLOR YELLOW (COLORLESS); SOURCE, BODY FLUID PLEURAL
[2022-10-18 13:04] LABS: SOURCE, BODY FLUID ALBUMIN PLEURAL
[2022-10-18 13:09] LABS: SOURCE, BODY FLUID GLUCOSE PLEURAL
[2022-10-18 13:11] LABS: AMYLASE, BODY FLUID 28 U/L (NOT ESTABLISHED); LDH, BODY FLUID 129 U/L (NOT ESTABLISHED); SOURCE, BODY FLUID AMYLASE PLEURAL; SOURCE, BODY FLUID LDH PLEURAL; SOURCE, BODY FLUID TOT PROTEIN PLEURAL; TOTAL PROTEIN, BODY FLUID 3.9 G/DL (NOT ESTABLISHED)
[2022-10-18 14:15] VITALS: BP 123/71
== END ==
LOC: M IRPRO 10:56
PROVIDERS: ATTEND Internal Medicine Critical Care Medicine
DX: J90 Pleural effusion, not elsewhere classified (principal)

== ENCOUNTER → 2022-11-22 | Outpatient (CLI) | payer MEDICARE, BC, OTHER ==
[~2022-11-22] MED LIST changes: -ACETAMINOPHEN 325 MG TAB As Ordered ONE; -ACETAMINOPHEN TAB 650MG DOSE (2X325MG) PO PRN
== END ==
LOC: M PLAIMG 13:10
PROVIDERS: ATTEND Internal Medicine Critical Care Medicine
DX: J90 Pleural effusion, not elsewhere classified (principal)

== ENCOUNTER → 2022-11-27 | Outpatient (REF) | payer MEDICARE, BC, OTHER | LOC: M LAB REF 20:46 | PROVIDERS: ATTEND Physician Assistant | DX: R30.0 Dysuria (principal) ==

== ENCOUNTER → 2023-01-09 | Outpatient (CLI) | payer MEDICARE, BC, OTHER ==
[~2023-01-09] MED LIST changes: +CIPR500T39 PO; +MELA10TA14 PO; +METO10TA2 PO; +ONDA8TAB8 PO; +OXYC-517 PO; +PANT40TA29 PO; +POLY510P14 PO; +POTA-151 PO; +SENN-186 PO; +SPIR50TA4 PO; +SUCR1TAB56 PO
== END ==
LOC: M WUC 10:30
PROVIDERS: ATTEND Internal Medicine Medical Oncology
DX: R18.8 Other ascites (principal); J90 Pleural effusion, not elsewhere classified; Z95.828 Presence of other vascular implants and grafts; J98.11 Atelectasis